=== PATIENT | female | born 1990 | race Caucasian/White ===

== ENCOUNTER 2020-12-31 14:46 | Outpatient (REF) | payer BC, SELFPAY ==
[2020-12-31 18:02] LABS: Syphilis Screen Nonreactive (Nonreactive)
[2021-01-01 01:15] LABS: CT PCR NOT DETECTED (Not Detect.); NG PCR NOT DETECTED (Not Detect.)
[2021-01-01 09:44] LABS: HBc Num1 0.05 S/CO (0.00-0.79); HIV AB/AG Nonreactive (Nonreactive); HIV Num 1 0.05 S/CO (0.00-0.99); Hepatitis B Core Antibody Nonreactive (Nonreactive); ~HepC Num1 0.08 S/CO (0.00-0.79); ~Hepatitis C Antibody Nonreactive (Nonreactive)
== END 2020-12-31 14:47 | disposition home or self-care (01) ==
LOC: HO.LAB 14:46
PROVIDERS: Visit Provider Advanced Practice Midwife
DX: Z01.419 Encounter for gynecological examination (general) (routine) without abnormal findings (principal); Z11.8 Encounter for screening for other infectious and parasitic diseases; Z11.3 Encounter for screening for infections with a predominantly sexual mode of transmission; Z11.4 Encounter for screening for human immunodeficiency virus [HIV]; Z13.29 Encounter for screening for other suspected endocrine disorder; Z11.59 Encounter for screening for other viral diseases; Z88.4 Allergy status to anesthetic agent; Z97.5 Presence of (intrauterine) contraceptive device
CPT/HCPCS: 36415; 86704; 86780; 86803; 87389; 87491; 87591

== ENCOUNTER 2022-04-20 13:35 | Outpatient (REF) | payer BC, SELFPAY ==
[2022-04-21 06:16] LABS: CT PCR NOT DETECTED (Not Detect.); NG PCR NOT DETECTED (Not Detect.)
[2022-04-24 08:34] LABS: HPV mRNA E6/E7 rflx Not Detected (Not Detected)
== END 2022-04-20 13:36 | disposition home or self-care (01) ==
LOC: HO.LNP 13:35
PROVIDERS: Visit Provider Advanced Practice Midwife
DX: Z01.419 Encounter for gynecological examination (general) (routine) without abnormal findings (principal); Z11.51 Encounter for screening for human papillomavirus (HPV); Z11.3 Encounter for screening for infections with a predominantly sexual mode of transmission
CPT/HCPCS: 0353U; 87624; 88142

== ENCOUNTER 2022-10-11 16:07 | Outpatient (AMB) | payer BC, SELFPAY ==
[2022-10-11 16:32] VITALS: BP 106/74; PULSE 95; TEMP 36.7; O2SAT 98
--- NOTE | 2022-10-11 16:32 | AM.OFFWIN_ITS ---
Intake Vital Signs 10/11/22 16:32 Height 5 ft 3 in BP 106/74 Blood Pressure Location Lt brachial Position Sitting Pulse 95 Pulse Source Pulse Oximeter Temp 98.1 F Temp Source Oral Pulse Oximetry (%) 98 Oxygen Delivery Method Room Air Intake Visit Reasons: EST/right shoulder pain Patient Tobacco Use Status: Never used Tobacco Allergies lidocaine [From LIDODERM] Allergy (Unknown, Verified 10/12/22 06:12) HIVES lidocaine gel Allergy (Unknown, Uncoded 10/12/22 06:12) hives Medication List - Last Reconciled 10/12/22 by Marcell Dean MD cyclobenzaprine 10 mg PO BEDTIME meloxicam 15 mg PO DAILY HPI EST/right shoulder pain HPI Details 32-year-old female presents to the walk-in clinic with a variety of complaints. She does not have primary care provider yet and her establishing care with a new provider is a couple of months away. Patient is reporting that her right shoulder is hurting and numbness extending a into the right arm. This symptom has been present for many months. She feels discomfort on the right side of the neck. She is also under a lot of mental stress. Patient has gone through a recent divorce and has full custody of her teenage children. Her workplace is also stressful. She has difficulty sleeping at night and wakes up early. Denies any racing thoughts. In addition patient is complaining of cold intolerance, irregular bowel habits. She is using a control patch and has not had a period for a few months. [facility] Surgical History Hx of section Social History Alcohol intake: current Alcohol intake frequency: holidays/special occasions only Patient Tobacco Use Status: Never used Tobacco Sexual orientation: Straight/Heterosexual Gender identity: Female Female Reproductive History Menstrual Age of Menarche: 9 Physical Exam Vital Signs: Last Vital Signs Temp 98.1 F 10/11/22 16:32 Pulse 95 10/11/22 16:32 BP 106/74 10/11/22 16:32 Pulse Ox 98 10/11/22 16:32 Oxygen Delivery Method Room Air 10/11/22 16:32 Const General: cooperative and healthy appearing Nutritional Appearance: well nourished Orientation/consciousness: patient oriented x3 Limitations: no limitations HEENT Head: Yes normal to inspection Eyes General: appearance normal, both eyes and all related structures Neck Neck: Yes normal visual inspection Chest Chest palpation & inspection: normal palpation of entire chest wall Resp Effort & Inspection: normal respiratory effort Neuro General: patient oriented x3 Extrem Other: Neck: Full range of motion and mild discomfort in the bilateral trapezius muscle. Right shoulder: No AC joint tenderness. Full range of motion including flexion, extension of the arm at the shoulder. Internal and external rotation are in range. Assessment & Plan Assessment & Plan (1) Right shoulder pain: Code(s): M25.511 - Pain in right shoulder Plan: I believe her symptoms are more due to underlying anxiety. However thyroid disorder should be ruled out. Cyclobenzaprine has been ordered for symptomatic relief. Will call patient with results of the blood work Orders: Orders Basic Metabolic Panel 10/11/22 E03.9 - Hypothyroidism, unspecified Liver Panel 10/11/22 E03.9 - Hypothyroidism, unspecified Thyroid Stimulating Hormone 10/11/22 E03.9 - Hypothyroidism, unspecified Complete Blood Count no Diff 10/11/22 E03.9 - Hypothyroidism, unspecified Erythrocyte Sedimentation Rate 10/11/22 E03.9 - Hypothyroidism, unspecified Medications: New meloxicam 15 mg PO DAILY 14 tabs 0RF cyclobenzaprine 10 mg PO BEDTIME 14 tabs 0RF Coding Level of Care Code New Pt Level 4 (87135) Diagnoses Right shoulder pain M25.511
== END 2022-10-11 17:02 | disposition home or self-care (01) ==
PROVIDERS: PCP Internal Medicine; Visit Provider Internal Medicine
DX: M25.511 Pain in right shoulder (principal)
CPT/HCPCS: 99204

== ENCOUNTER 2022-10-12 07:21 | Outpatient (REF) | payer BC, SELFPAY ==
[2022-10-12 11:39] LABS: Hematocrit 40.2 % (37.0-47.0); Hemoglobin 13.4 g/dl (12.0-16.0); Mean Corpuscular HGB Conc 33.3 g/dl (31.0-35.0); Mean Corpuscular Hemoglobin 30.8 pg (27.0-33.0); Mean Corpuscular Volume 92.4 fL (80.0-98.0); Mean Platelet Volume 11.2 fL (9.4-12.3); Platelet Count 175 X10*3/uL (160-400); Red Blood Count 4.35 X10*6/uL (4.20-5.50); Red Cell Distribution Width 12.2 % (11.0-16.0)
[2022-10-12 12:21] LABS: Erythrocyte Sedimentation Rate 2 MM/HR (0-20)
[2022-10-12 12:38] LABS: Alanine Aminotransferase 13 U/L (0-31); Alkaline Phosphatase 46 U/L (39-117); Anion Gap 8 (12-20); Aspartate Amino Transferase 15 U/L (5-31); Bilirubin Direct 0.2 mg/dL (0.0-0.5); Bilirubin Total 0.3 mg/dL (0.0-1.0); Blood Urea Nitrogen 14 mg/dL (9-16); Carbon Dioxide 26 mmol/L (22-29); Chloride 111 mmol/L (96-108); Estimated Glomerular Filt Rate > 60; Glucose Random 89 mg/dL (60-115); Potassium 3.8 mmol/L (3.3-5.1); Sodium 141 mmol/L (135-145); Thyroid Stimulating Hormone 1.67 uIU/mL (0.32-4.0); Total Protein 6.5 g/dL (6.5-8.0)
[2022-10-13 03:59] LABS: Syphilis Screen Nonreactive (Nonreactive)
[2022-10-13 04:42] LABS: HBc Num1 0.11 S/CO (0.00-0.79); HIV AB/AG Nonreactive (Nonreactive); HIV Num 1 0.06 S/CO (0.00-0.99); Hepatitis B Core Antibody Nonreactive (Nonreactive); ~HepC Num1 0.12 S/CO (0.00-0.79); ~Hepatitis C Antibody Nonreactive (Nonreactive)
== END 2022-10-12 07:22 | disposition home or self-care (01) ==
LOC: HO.HMGCLDS 07:21
PROVIDERS: Advanced Practice Midwife; PCP Internal Medicine; Visit Provider Internal Medicine
DX: E03.9 Hypothyroidism, unspecified (principal); Z20.2 Contact with and (suspected) exposure to infections with a predominantly sexual mode of transmission
CPT/HCPCS: 36415; 80048; 80076; 84443; 85027; 85652; 86704; 86780; 86803; 87389

== ENCOUNTER 2023-04-26 12:47 | Outpatient (AMB) | payer BC, SELFPAY ==
[2023-04-26 12:52] VITALS: BP 104/70; BMI 31.0
--- NOTE | 2023-04-26 12:52 | MHC.OFFVIS ---
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 Doing well with concerns: left sided flank pain. No frequency of urination or dysuria. She reports a history of ovarian cysts in the past. She tries to eat healthy and stays active with exercise. Lost weight this past year with lifestyle changes. Occasions bleeding with her Mirena IUD. Inserted in 2018. Currently is sexually active same partner x 2yr. She denies vaginal itching and irritation. STI screening offered; she declines. Denies family history of breast or colon cancer. Family history of ovarian cancer-sister. Last pap smear 2022, negative. PFSH Surgical History Hx of section Family History Sister Ovarian cancer Endometriosis Mother Endometriosis Social History Alcohol intake: current Alcohol intake frequency: holidays/special occasions only Patient Tobacco Use Status: Never used Tobacco Sexual orientation: Straight/Heterosexual Gender identity: Female Female Reproductive History Menstrual Age of Menarche: 9 control method: progestin IUCD (Mirena 10/2018) Total pregnancies: 3 Full term: 3 Number of Living Children: 3 Date of last pap smear: 04/20/22 (neg pap and hpv) Review of Systems Const All systems reviewed & are unremarkable except as noted in HPI and below Reports as per HPI Eyes Reports no additional complaints ENT Reports no additional complaints Card Reports no additional complaints Resp Reports no additional complaints GI Reports as per HPI and Reports no additional complaints Reports as per HPI Musc Reports no additional complaints Skin/Breast Reports as per HPI Neuro Reports no additional complaints Psych Reports no additional complaints Endo Reports no additional complaints Cristhian/Lymph Reports no additional complaints Aller/Immun Reports no additional complaints Physical Exam Vital Signs: Last Vital Signs BP 104/70 04/26/23 12:52 BMI result Body Mass Index 31.0 Const General: cooperative, healthy appearing, no acute distress, well developed and alert Orientation/consciousness: patient oriented x3 HEENT Head: Yes normal to inspection Eyes General: appearance normal, both eyes and all related structures Neck Neck: Yes normal visual inspection Thyroid: Thyroid normal Chest Chest palpation & inspection: normal inspection of the chest and other (no puckering, dimpling, peau de orange, retraction, discharge, masses) Breast/axilla inspection: normal inspection of the breasts Breast/axilla palpation: normal palpation of the breasts Resp Effort & Inspection: normal respiratory effort GI Inspection: Yes normal to inspection Palpation (GI): Soft to palpation Rectal Exam - Female: deferred General: Yes bladder normal to palpation External Female Exam: normal external appearance and normal appearance of the urethra Speculum Exam - Vagina: normal appearance of the vagina, normal palpation and normal vaginal discharge (Thin white) Speculum Exam - Cervix: normal appearance of the cervix, normal palpation and Other cervical findings present (IUD strings present) Bimanual exam- vagina & uterus: normal bimanual exam, normal palpation, uterine size normal, bladder normal to palpation, normal palpation and non-tender Bimanual Exam- Adnexa, other: no masses and Other (slightly tender to the right and left adnexa) Skin General skin exam: no rashes or lesions noted Rashes: no rashes Neuro General: patient oriented x3 Cognition (Neuro): normal cognition Extrem General: Yes normal to inspection Psych Attitude: cooperative Thought process: Normal thought process present Results AMB Urinalysis, Automated UA Leukoctes 0.5 Rob/uL Last Edit by MARSHA Stallworth on 04/26/23 13:01 UA Nitrite Negative Last Edit by MARSHA Stallworth on 04/26/23 13:01 UA Urobilinogen 0 mg/dL Last Edit by MARSHA Stallworth on 04/26/23 13:01 UA Protein 0 mg/dL Last Edit by MARSHA Stallworth on 04/26/23 13:01 UA pH 6.0 Last Edit by MARSHA Stallworth on 04/26/23 13:01 UA Blood 0 Gustavo/uL Last Edit by MandyMARSHA Castro on 04/26/23 13:01 UA Specific [place] 1.025 Last Edit by MandyMARSHA Castro on 04/26/23 13:01 UA Ketone Negative Last Edit by MandyMARSHA Castro on 04/26/23 13:01 UA Bilirubin 0 mg/dL Last Edit by MARSHA Stallworth on 04/26/23 13:01 UA Glucose 0 mg/dL Last Edit by MARSHA Stallworth on 04/26/23 13:01 Results Reviewed Results Reviewed: Laboratory Last Values Urine pH (Auto) 6.0 04/26/23 12:59 Specific [place] (Auto) 1.025 04/26/23 12:59 Urine Protein (Auto) 0 mg/dL 04/26/23 12:59 Glucose (UA)(Auto) 0 mg/dL 04/26/23 12:59 Urine Ketones (Auto) Negative 04/26/23 12:59 Urine Blood (Auto) 0 Gustavo/uL 04/26/23 12:59 Urine Nitrite (Auto) Negative 04/26/23 12:59 Urine Bilirubin (Auto) 0 mg/dL 04/26/23 12:59 Urine Urobilinogen (Auto) 0 mg/dL 04/26/23 12:59 Leukocyte Esterase (Auto) 0.5 Rob/uL 04/26/23 12:59 Assessment & Plan Assessment & Plan (1) Encounter for well woman exam with routine gynecological exam: Code(s): Z01.419 - Encounter for gynecological examination (general) (routine) without abnormal findings (2) Pelvic pain: Code(s): R10.2 - Pelvic and perineal pain (3) IUD surveillance: Code(s): Z30.431 - Encounter for routine checking of intrauterine contraceptive device Plan Discussed: Current recommendations for pap smears per ASCCP guidelines. Breast awareness and periodic breast exams. Maintain a healthy lifestyle including a well balanced diet and routine exercise. Use of [id number] Tylenol for any pelvic discomfort. Warnings if any increased her significant pain to report to the emergency room right away. Plan ultrasound for assessment for an ovarian cyst and IUD positioning. Return to the office in person for test results in pelvic recheck. Patient verbalizes understanding and agrees to the plan of care. She was given opportunity to ask questions and all questions were answered to the best of my ability. RTO in one year for annual mohs surgeon/general dermatologist examination. This note is constructed using voice recognition software. While every effort has been made to ensure accuracy, cvt rn errors may have been included. Orders: Orders AMB Urinalysis Automated Today M54.9 - Dorsalgia, unspecified Bacterial Vaginosis Panel Today R10.2 - Pelvic and perineal pain CT NG by PCR Today R10.2 - Pelvic and perineal pain Urine Culture Today R10.2 - Pelvic and perineal pain, R10.9 - Unspecified abdominal pain, R82.998 - Other abnormal findings in urine US pelvic and transvaginal Today R10.2 - Pelvic and perineal pain, Z30.431 - Encounter for routine checking of intrauterine contraceptive device Coding Level of Care Code Est Pt Prev Care 18-39y(18856) Diagnoses Encounter for well woman exam with routine gynecological exam Z01.419 Pelvic pain R10.2 IUD surveillance Z30.431
== END 2023-04-26 13:23 | disposition home or self-care (01) ==
LOC: HO.HWS 12:47
PROVIDERS: PCP Internal Medicine; Visit Provider Advanced Practice Midwife
DX: Z01.419 Encounter for gynecological examination (general) (routine) without abnormal findings (principal); R10.2 Pelvic and perineal pain; Z30.431 Encounter for routine checking of intrauterine contraceptive device; M54.9 Dorsalgia, unspecified
CPT/HCPCS: 99395

== ENCOUNTER 2023-04-26 12:47 | Outpatient (REF) | payer BC, SELFPAY | END 2023-04-26 12:48 | disposition home or self-care (01) | LOC: HO.LAB 12:47 | PROVIDERS: PCP Internal Medicine; Visit Provider Advanced Practice Midwife | DX: R10.2 Pelvic and perineal pain (principal) | CPT/HCPCS: 81003 ==

== ENCOUNTER 2023-04-26 13:17 | Outpatient (REF) | payer BC, SELFPAY ==
[2023-04-27 03:05] LABS: CT PCR NOT DETECTED (Not Detect.); NG PCR NOT DETECTED (Not Detect.)
[2023-04-27 09:18] LABS: BV Int Neg Control Negative (Negative); BV Int Pos Control Positive (Positive)
== END 2023-04-26 13:18 | disposition home or self-care (01) ==
LOC: HO.LNP 13:17
PROVIDERS: Visit Provider Advanced Practice Midwife
DX: R82.998 Other abnormal findings in urine (principal); R10.2 Pelvic and perineal pain; R10.9 Unspecified abdominal pain
CPT/HCPCS: 0353U; 87086; 87480; 87510; 87660

== ENCOUNTER 2023-05-10 14:27 | Outpatient (REF) | payer BC, SELFPAY ==
--- NOTE | ~2023-05-10 | US_ITS ---
EXAMINATION: US PELVIS CLINICAL INFORMATION: Pelvic pain; the last menstrual period is not provided. COMPARISON: None available. TECHNIQUE: Ultrasound of the pelvis is performed using both transabdominal and transvaginal transducers along with Doppler. Transvaginal imaging is performed due to inadequate visualization transabdominally. FINDINGS: Uterus: The uterus is anteverted and measures 9.7 x 5.0 x 5.7 cm. The double wall endometrial thickness is 8 mm. An intrauterine device is seen, properly situated within the endometrial canal. The uterus is smooth in contour and has normal myometrial echogenicity. No visible fibroid. Nabothian cysts are seen within the cervix. Adnexa: Both ovaries are visualized. There is normal color flow to the adnexa. There is no ovarian torsion. There is no pelvic ascites or fluid collection. Right ovary measures 2.9 x 1.7 x 2.9 cm, volume 7.5 mL. Left ovary measures 2.6 x 1.9 x 1.6 cm, volume 4.1 mL. US/US pelvic and transvaginal IMPRESSION: 1. An intrauterine device is seen, properly situated within the endometrial canal. 2. Nabothian cysts are seen within the cervix.
== END 2023-05-10 14:28 | disposition home or self-care (01) ==
LOC: HO.US 14:27
PROVIDERS: PCP Internal Medicine; Visit Provider Advanced Practice Midwife
DX: Z30.431 Encounter for routine checking of intrauterine contraceptive device (principal); R10.2 Pelvic and perineal pain
CPT/HCPCS: 76830; 76856

== ENCOUNTER 2023-05-18 15:20 | Outpatient (AMB) | payer BC, SELFPAY ==
[2023-05-18 15:24] VITALS: BP 110/68; PULSE 96; O2SAT 96; BMI 29.1
--- NOTE | 2023-05-18 15:24 | A.OFFPC_ITS ---
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 C law writer last pap 04/26/23 Is last menstrual period known: No Allergies lidocaine [From LIDODERM] Allergy (Unknown, Verified 05/18/23 15:44) HIVES lidocaine gel Allergy (Unknown, Uncoded 05/18/23 15:44) hives Medication List - Last Reconciled 05/18/23 by ARPITA Lindsey levonorgestrel (Mirena) intrauterine Tobacco use date assessed: 05/18/23 Dental Screening Dental Screen Date: 05/18/23 Did you have a dental visit in the last 12 months?: Yes Did you have a dental problem in the last 6 months where you did not have access to dental care?: No Was dental information given to patient?: Patient has dentist HPI HPI Comments History of Present Illness Details The patient is a 32-year-old female who I am meeting for the 1st time. Patient has establish care with OBGYN. Last Pap smear was 04/29. She was seen in our walk-in clinic 1 month prior with complaints of right trapezius pain and tingling down her right arm. She was given cyclobenzaprine and meloxicam. She has a past medical significant for migraines. She is not currently taking any prophylactic medication for this, states she gets 1-2 episodes per week. Patient also states that she is having a lot of anxiety due to stressors in life and work. This is interrupting her ability to get a good night's sleep, and she believes is causing an increase in migraine occurrences. PFSH Surgical History Hx of section Family History Sister Ovarian cancer Endometriosis Substance use disorder Mother Endometriosis Mental health disorder Substance use disorder Maternal Grandmother Substance use disorder Brother Substance use disorder Social History Housing: House Alcohol intake: current Alcohol intake frequency: holidays/special occasions only Patient Tobacco Use Status: Never used Tobacco e-Cigarette/Vaping Use: Never Used service: No Current occupational status: employed Current occupation: [employer] Current occupational exposures/hazards: No Sexual orientation: Straight/Heterosexual Gender identity: Female Female Reproductive History Menstrual Age of Menarche: 9 Questionnaire PHQ-9 Over the last 2 weeks, how often have you been bothered by any of the following problems? 1. Little interest or pleasure in doing things: more than half the days 2. Feeling down, depressed, or hopeless: more than half the days 3. Trouble falling or staying asleep, or sleeping too much: more than half the days 4. Feeling tired or having little energy: several days 5. Poor appetite or overeating: several days 6. Feeling bad about yourself - or that you are a failure or have let yourself or your family down: several days 7. Trouble concentrating on things, such as reading the newspaper or watching television: more than half the days 8. Moving or speaking so slowly that other people could have noticed. Or the opposite - being so fidgety or restless that you have been moving around a lot more than usual: not at all 9. Thoughts that you would be better off or of hurting yourself in some way: not at all Total score: 11 Depression Screening Interpretation: Negative (Patient being started on Lexapro today.) Depression Screening Done: Yes 99027 - PHQ-9 Billing: Yes Source: Developed by Drs. Daniel Elizabeth, Debbie Pettit, Nitish Dee and colleagues, with an educational stephanie from [employer] Thrive Questionnaire Date Thrive assessed: 05/18/23 I am a: Patient What is your living situation today?: I have a steady place to live Within the past 12 months, did the food you bought not last and you didn't have the money to get more?: Never true Within the past 12 months, did you worry whether your food would run out before you got money to buy more?: Never true Do you have trouble paying for medicines?: No Do you have trouble getting transportation to medical appointments?: No Do you have trouble paying your heating and electricity bill?: Yes Do you have trouble taking care of your child, family member or friend?: No Do you have trouble with day-to-day activities such as bathing, preparing meals, shopping, managing finances, etc.?: No Are you currently unemployed and looking for a job?: No Are you interested in more education?: No THRIVE Score: 1 AUDIT C Alcohol Use Questionnaire (AUDIT-C) 1. How often do you have a drink containing alcohol?: 2-4 times a month 2. How many drinks containing alcohol do you have on a typical day when you are drinking?: 1 or 2 3. How often do you have six or more drinks on one occasion?: Never Total Score: 2 GETEA-7 AMB Questionnaire GEETA-7 Date GEETA - 7 assessed: 05/18/23 Feeling nervous, anxious, or on edge: 2 = More than half the days Not being able to stop or control worryin = More than half the days Worrying too much about different things: 2 = More than half the days Trouble relaxin = More than half the days Being so restless that it is hard to sit still: 2 = More than half the days Becoming easily annoyed or irritable: 1 = Several days Feeling afraid as if something awful might happen: 1 = Several days Total GEETA-7 score (0-4 normal; 5-9 mild; 10-14 moderate; 15-21 severe): 12 Source: Developed by Drs. Daniel Elizabeth, Debbie Pettit, Nitish Dee and colleagues, with an educational stephanie from [employer] GEETA-7 Assessment Billing GEETA-7 Assessment Tool: GEETA-7 Assessment 60505 Review of Systems Const Details: Constitutional : No Weight loss, No Fever, No Chills, No Fatigue, No Malaise ENT/Mouth : No sore throat, No Rhinorrhea Eyes: No Eye Pain, No Swelling, No Redness Cardiovascular : No Chest Pain, No SOB, No Dyspnea on Exertion, No Orthopnea, No Edema, No Palpitations Respiratory : No Cough, No Sputum, No Wheezing Gastrointestinal : No Nausea, No Vomiting, No Diarrhea, No Constipation, No abdominal Pain, No Hematochezia, No Melena Genitourinary : No Dysuria, No Urinary Frequency, No Hematuria, Musculoskeletal : Admits pain right shoulder muscle. Skin : No Skin Lesions, No rash Neuro : No Weakness, No Numbness, No Dizziness, Admits intermittent Headache Psych : Admits Anxiety/Panic, No depression, Denies SI/HI. Heme/Lymph: No Bruising, No Bleeding,No Lymphadenopathy Endocrine : No Polyuria, No Polydipsia All other systems reviewed and are negative Physical exam (Primary Care) Vital Signs: Last Vital Signs Pulse 96 05/18/23 15:24 BP 110/68 05/18/23 15:24 Pulse Ox 96 05/18/23 15:24 Oxygen Delivery Method Room Air 05/18/23 15:24 Care Plan Goal for BP management: Vital signs reviewed stable. BMI result Body Mass Index 29.1 Tobacco/Smoking Status: Tobacco use Status Tobacco use date assessed 05/18/23 05/18/23 15:33 Patient Tobacco Use Status Never used Tobacco 05/18/23 15:24 e-Cigarette/Vaping Use Never Used 05/18/23 15:33 PHQ-9: PHQ-9 Score PHQ-9: Total score 13 05/18/23 15:35 Depression Screening Interpretation: Negative (Patient being started on Lexapro today.) Thrive Assessment: Date of Thrive Assessment Date Thrive assessed 05/18/23 05/18/23 15:35 Const Other: Appearance: Alert.? Oriented X3.? No acute distress.? Head: Normocephalic, atraumatic. Eyes: Pupils equal, round and reactive to light.? Neck: Normal inspection.? Neck supple.? CVS: Normal heart rate and rhythm.? Pulses normal.? Respiratory: No respiratory distress.? Breath sounds normal.? Extremities: No lower extremity edema.? No calf ttp. 5/5 strength to bilateral upper and lower extremities, + right trapezius. Neuro: Oriented X 3.? No motor deficit.? No sensory deficit. CN 2-12 intact Assessment and Plan Assessment & Plan (1) Right shoulder pain: Comment: Patient will be given naproxen to be taken as directed. Patient has been educa alejo the side effects of these medications. Code(s): M25.511 - Pain in right shoulder Qualifiers: Chronicity: unspecified Qualified Code(s): M25.511 - Pain in right shoulder (2) Migraines: Comment: Patient has history of migraines. She states that with anxiety she believes she is getting more current his during the week. She is also getting little sleep which may be an exacerbating factor. Patient can take naproxen for abortive therapy. Patient will be given medication to assist with insomnia and anxiety. If symptoms do not improve, will give neurology referral Code(s): G43.909 - Migraine, unspecified, not intractable, without status migrainosus Qualifiers: Migraine type: unspecified Status migrainosus presence: without status migrainosus Intractability: not intractable Qualified Code(s): G43.909 - Migraine, unspecified, not intractable, without status migrainosus (3) Anxiety: Comment: Patient will be started on 5 mg of escitalopram, will be given hydroxyzine to be taken at night p.r.n. for sleep. Patient has been educated on side effects of these medications. Patient will be seeing a therapist in 1 month. Code(s): F41.9 - Anxiety disorder, unspecified Plan: Take your medications as prescribed. If you were prescribed antibiotics today, it is important that you take your medication to their entirety, do not skip any doses, do not finish them early. Follow-up with your primary care provider this week. Return to the emergency department with new or worsening symptoms. Such as fevers, chills, chest pain, shortness of breath, nausea, vomiting, dizziness, headache, vision changes, lethargy In case of emergency call 911 Plan Will follow-up in 6 weeks for medication review. Medications: New sennosides (senna) 8.6 mg PO DAILY 30 tabs 0RF naproxen Do not combine with NSAIDS. 500 mg PO BID PRN 30 tabs 0RF pain escitalopram oxalate (Lexapro) 5 mg PO DAILY 90 tabs 0RF hydroxyzine HCl 25 mg PO BEDTIME 30 tabs 0RF Coding Level of Care Code Est Pt Level 4 (13113) Diagnoses Right shoulder pain, unspecified chronicity M25.511 Chronicity: unspecified Migraine without status migrainosus, not intractable, unspecified migraine type G43.909 Migraine type: unspecified Status migrainosus presence: without status migrainosus Intractability: not intractable Anxiety F41.9 Additional Codes GEETA-7 Assessment Billing - GEETA-7 Assessment Tool: GEETA-7 Assessment 58925 ([id number]) Time Spent (min) 41
== END 2023-05-18 16:12 | disposition home or self-care (01) ==
PROVIDERS: PCP Internal Medicine; Visit Provider Nurse Practitioner Primary Care
DX: M25.511 Pain in right shoulder (principal); G43.909 Migraine, unspecified, not intractable, without status migrainosus; F41.9 Anxiety disorder, unspecified
CPT/HCPCS: 96127; 99214

== ENCOUNTER 2023-06-14 08:28 | Outpatient (REF) | payer BC, SELFPAY ==
[2023-06-14 10:27] LABS: Appearance Urine Clear; Color Urine Yellow; Glucose Urine UA Negative (Negative); Leukocyte Esterase Urine Negative (Negative); Nitrite Urine Negative (Negative); Specific Gravity - Urine 1.025 (1.005-1.025); Urine Blood Negative (Negative); Urine Ketones Negative (Negative); Urine Protein Negative (Neg-Trace)
[2023-06-14 10:29] LABS: MANUAL DIFF FLAG NO
[2023-06-14 10:37] LABS: Basophils Percent Auto 0.4 % (0-2); Eosinophils Absolute Auto 0.1 X10*3/uL (0.0-0.4); Eosinophils Percent Auto 2.5 % (0-4); Hematocrit 39.9 % (37.0-47.0); Hemoglobin 13.6 g/dl (12.0-16.0); Imm Gran Abs Auto 0.03 X10*3/uL (0.00-0.03); Imm Gran Pct Auto 0.5 % (0.0-0.4); Lymphocytes Absolute Auto 1.8 X10*3/uL (1.2-4.9); Lymphocytes Percent Auto 31.5 % (20-40); Mean Corpuscular HGB Conc 34.1 g/dl (31.0-35.0); Mean Corpuscular Hemoglobin 31.6 pg (27.0-33.0); Mean Corpuscular Volume 92.6 fL (80.0-98.0); Mean Platelet Volume 11.3 fL (9.4-12.3); Monocytes Absolute Auto 0.4 X10*3/uL (0.1-1.2); Monocytes Percent Auto 7.4 % (2-11); Neutrophils Absolute Auto 3.3 x10*3/uL (2.0-8.3); Neutrophils Percent Auto 57.7 % (45-73); Platelet Count 201 X10*3/uL (160-400); Red Blood Count 4.31 X10*6/uL (4.20-5.50); Red Cell Distribution Width 12.5 % (11.0-16.0); White Blood Count 5.7 X10*3/uL (4.8-10.8)
[2023-06-14 11:31] LABS: Alanine Aminotransferase 24 U/L (0-31); Albumin Level 4.3 g/dL (3.5-5.0); Alkaline Phosphatase 48 U/L (39-117); Anion Gap 11 (12-20); Aspartate Amino Transferase 21 U/L (5-31); Bilirubin Total 0.5 mg/dL (0.0-1.0); Blood Urea Nitrogen 20 mg/dL (9-16); Calcium 9.3 mg/dL (8.4-10.2); Carbon Dioxide 27 mmol/L (22-29); Chloride 110 mmol/L (96-108); Cholesterol 149 mg/dL (<200); Estimated Glomerular Filt Rate > 60; Glucose Random 94 mg/dL (60-115); HDL Cholesterol 53 mg/dL (>40); LDL Cholesterol Calculated 79 mg/dL (<100); Potassium 3.8 mmol/L (3.3-5.1); Sodium 144 mmol/L (135-145); Triglycerides 87 mg/dL (<150)
[2023-06-14 11:32] LABS: TSH reflex Free T4 1.19 uIU/mL (0.32-4.0)
[2023-06-14 12:00] LABS: Vitamin B12 245 pg/mL (200-900)
[2023-06-18 13:53] LABS: Vitamin D 25-OH, D2 <4 ng/mL; Vitamin D 25-OH, D3 28 ng/mL; Vitamin D 25-OH, Total 28 ng/mL (30-100)
[2023-06-18 17:08] LABS: Vitamin B6 28.6 ng/mL (2.1-21.7)
== END 2023-06-14 08:29 | disposition home or self-care (01) ==
LOC: HO.HMGCLDS 08:28
PROVIDERS: PCP Nurse Practitioner Primary Care; Visit Provider Nurse Practitioner Primary Care
DX: Z13.0 Encounter for screening for diseases of the blood and blood-forming organs and certain disorders involving the immune mechanism (principal); Z13.21 Encounter for screening for nutritional disorder; Z13.89 Encounter for screening for other disorder; Z13.29 Encounter for screening for other suspected endocrine disorder; Z13.6 Encounter for screening for cardiovascular disorders; Z13.220 Encounter for screening for lipoid disorders; Z91.89 Other specified personal risk factors, not elsewhere classified
CPT/HCPCS: 36415; 80053; 80061; 81003; 82306; 82607; 84207; 84443; 85025

== ENCOUNTER 2023-06-29 14:09 | Outpatient (AMB) | payer BC, SELFPAY ==
--- NOTE | 2023-06-29 14:11 | MHC.PC.OV ---
Vital Signs 06/29/23 14:13 Height 5 ft 3 in Weight 169 lb BMI 29.9 BP 108/66 Blood Pressure Location Rt brachial Position Sitting Pulse 86 Pulse Source Pulse Oximeter Pulse Oximetry (%) 98 Intake Visit Reasons: 6 week follow up Intake Note: pt is here for 6 week follow up Slip Tender Required: No Accompanied by: Self / Same As Patient Allergies lidocaine [From LIDODERM] Allergy (Unknown, Verified 06/29/23 14:36) HIVES lidocaine gel Allergy (Unknown, Uncoded 06/29/23 14:36) hives Medication List - Last Reconciled 06/29/23 by ARPITA Lindsey cholecalciferol (vitamin D3) 50 mcg PO DAILY escitalopram oxalate (Lexapro) 10 mg PO DAILY levonorgestrel (Mirena) intrauterine naproxen 500 mg PO BID PRN sennosides (senna) 8.6 mg PO DAILY Tobacco use date assessed: 05/18/23 Dental Screening Dental Screen Date: 05/18/23 HPI HPI Comments History of Present Illness Details Patient is a 32-year-old female in today for follow-up. Patient was started on escitalopram 5 mg PO daily due to general anxiety disorder. The patient states that she recently establish contact with a psychiatrist to increased her dosage to 10 mg p.o. daily. Patient denies SI/HI. Patient states she is still getting about 2 migraines per week. Patient is not currently taking any medication for migraine prophylactic. Will give patient amitriptyline 10 mg p.o. at night to assist with migraine prophylactics and insomnia due to anxiety. Patient has been educated on adverse side effects these medication. Patient also has right shoulder pain. 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 Will obtain x-ray. She states sometimes the pain radiates down to her elbow and fingers. Denies any trauma to the area. PFSH Surgical History Hx of section Family History Sister Ovarian cancer Endometriosis Substance use disorder Mother Endometriosis Mental health disorder Substance use disorder Maternal Grandmother Substance use disorder Brother Substance use disorder Social History Housing: House Alcohol intake: current Alcohol intake frequency: holidays/special occasions only Patient Tobacco Use Status: Never used Tobacco e-Cigarette/Vaping Use: Never Used service: No Current occupational status: employed Current occupation: [employer] Current occupational exposures/hazards: No Sexual orientation: Straight/Heterosexual Gender identity: Female Cognitive needs: No Hearing needs: No Vision needs: No Female Reproductive History Menstrual Age of Menarche: 9 Questionnaire PHQ-9 Over the last 2 weeks, how often have you been bothered by any of the following problems? 1. Little interest or pleasure in doing things: several days 2. Feeling down, depressed, or hopeless: more than half the days 3. Trouble falling or staying asleep, or sleeping too much: several days 4. Feeling tired or having little energy: more than half the days 5. Poor appetite or overeating: several days 6. Feeling bad about yourself - or that you are a failure or have let yourself or your family down: not at all 7. Trouble concentrating on things, such as reading the newspaper or watching television: several days 8. Moving or speaking so slowly that other people could have noticed. Or the opposite - being so fidgety or restless that you have been moving around a lot more than usual: not at all 9. Thoughts that you would be better off or of hurting yourself in some way: not at all Total score: 8 Depression Screening Interpretation: Negative Depression Screening Done: Yes 12494 - PHQ-9 Billing: Yes Source: Developed by Drs. Daniel Elizabeth, Debbie Pettit, Nitish Dee and colleagues, with an educational stephanie from [employer]. Thrive Questionnaire Date Thrive assessed: 05/18/23 GEETA-7 AMB Questionnaire GEETA-7 Date GEETA - 7 assessed: 05/18/23 Feeling nervous, anxious, or on edge: 1 = Several days Not being able to stop or control worryin = Several days Worrying too much about different things: 1 = Several days Trouble relaxin = More than half the days Being so restless that it is hard to sit still: 1 = Several days Becoming easily annoyed or irritable: 1 = Several days Feeling afraid as if something awful might happen: 0 = Not at all Total GEETA-7 score (0-4 normal; 5-9 mild; 10-14 moderate; 15-21 severe): 7 Source: Developed by Drs. Daniel Elizabeth, Debbie Pettit, Nitish Dee and colleagues, with an educational stephanie from [employer]. GEETA-7 Assessment Billing GEETA-7 Assessment Tool: GEETA-7 Assessment 38022 Review of Systems Const All systems reviewed & are unremarkable except as noted in HPI and below Card Denies chest pain and Denies dyspnea Resp Denies dyspnea Psych Denies panic attacks, Denies homicidal ideation and Denies suicidal ideation Physical exam (Primary Care) Vital Signs: Last Vital Signs Pulse 86 06/29/23 14:13 BP 108/66 06/29/23 14:13 Pulse Ox 98 06/29/23 14:13 BMI result Body Mass Index 29.9 Tobacco/Smoking Status: Tobacco use Status Tobacco use date assessed 05/18/23 06/29/23 14:13 Patient Tobacco Use Status Never used Tobacco 06/29/23 14:13 e-Cigarette/Vaping Use Never Used 06/29/23 14:13 PHQ-9: PHQ-9 Score PHQ-9: Total score 8 06/29/23 15:11 Depression Screening Interpretation: Negative Thrive Assessment: Date of Thrive Assessment Date Thrive assessed 05/18/23 06/29/23 14:13 Const Other: Appearance: Alert.? Oriented X3.? No acute distress.? Head: Normocephalic Eyes: Pupils equal, round and reactive to light.? CVS: Normal heart rate and rhythm.? Pulses normal.? Respiratory: No respiratory distress.? Breath sounds normal.? Skin: Skin warm and dry.? Normal skin color.? Normal skin turgor.? Extremities: Tednernes to palpation of right trapezius. Full ROM. Neuro: Oriented X 3.? No motor deficit.? No sensory deficit. CN 2-12 intact Assessment and Plan Assessment & Plan (1) Right shoulder pain: Comment: Patient will be given naproxen to be taken as directed. Will obtain X-ray. Code(s): M25.511 - Pain in right shoulder Qualifiers: Chronicity: unspecified Qualified Code(s): M25.511 - Pain in right shoulder (2) Migraines: Comment: Patient has history of migraines. Will start an amitriptyline 10 mg p.o. at night. Patient has been educated on side effects of these medications. Code(s): G43.909 - Migraine, unspecified, not intractable, without status migrainosus Qualifiers: Intractability: not intractable Migraine type: unspecified Status migrainosus presence: without status migrainosus Qualified Code(s): G43.909 - Migraine, unspecified, not intractable, without status migrainosus Plan: Take your medications as prescribed. If you were prescribed antibiotics today, it is important that you take your medication to their entirety, do not skip any doses, do not finish them early. Follow-up with your primary care provider this week. Return to the emergency department with new or worsening symptoms. Such as fevers, chills, chest pain, shortness of breath, nausea, vomiting, dizziness, headache, vision changes, lethargy In case of emergency call 911 (3) Anxiety: Comment: Patient is now currently taking 10 mg p.o. Lexapro daily. Patient has established psychiatrist. Patient also has upcoming appointment with therapist Code(s): F41.9 - Anxiety disorder, unspecified Plan Patient will follow-up in 2 months Orders: Orders Comprehensive Met. Panel 2 Months Z91.89 - Other specified personal risk factors, not elsewhere classified Vitamin D 25-OH (D2 and D3) 2 Months Z13.21 - Encounter for screening for nutritional disorder XR shoulder RT min 2V 06/28/24 M25.511 - Pain in right shoulder Complete Blood Count Auto Diff 2 Months Z13.0 - Encounter for screening for diseases of the blood and blood-forming organs and certain disorders involving the immune mechanism Medications: New amitriptyline 10 mg PO BEDTIME 30 tabs 0RF Changed From escitalopram oxalate (Lexapro) 5 mg PO DAILY 90 tabs 0RF To escitalopram oxalate (Lexapro) 10 mg PO DAILY Discontinued hydroxyzine HCl Discontinued Reason: Doctor's Order 25 mg PO BEDTIME 30 tabs 0RF Coding Level of Care Code Est Pt Level 4 (61469) Diagnoses Right shoulder pain, unspecified chronicity M25.511 Chronicity: unspecified Migraine without status migrainosus, not intractable, unspecified migraine type G43.909 Intractability: not intractable Migraine type: unspecified Status migrainosus presence: without status migrainosus Anxiety F41.9 Additional Codes GEETA-7 Assessment Billing - GEETA-7 Assessment Tool: GEETA-7 Assessment 92500 ([id number]) Time Spent (min) 28
[2023-06-29 14:13] VITALS: BP 108/66; PULSE 86; O2SAT 98; BMI 29.9
== END 2023-06-29 15:16 | disposition home or self-care (01) ==
PROVIDERS: PCP Internal Medicine; Visit Provider Nurse Practitioner Primary Care
DX: M25.511 Pain in right shoulder (principal); G43.909 Migraine, unspecified, not intractable, without status migrainosus; F41.9 Anxiety disorder, unspecified
CPT/HCPCS: 99214

== ENCOUNTER 2023-06-29 14:48 | Outpatient (REF) | payer BC, SELFPAY | END 2023-06-29 14:49 | disposition home or self-care (01) | LOC: HO.HMGCX 14:48 | PROVIDERS: PCP Nurse Practitioner Primary Care; Visit Provider Nurse Practitioner Primary Care | DX: M25.511 Pain in right shoulder (principal) | CPT/HCPCS: 73030 ==

== ENCOUNTER 2023-07-11 09:09 | Outpatient (AMB) | payer BC, SELFPAY ==
--- NOTE | 2023-07-11 09:10 | A.OFFPC_ITS ---
Vital Signs 07/11/23 09:10 Height 5 ft 3 in Intake Visit Reasons: xray results Intake Note: pt is here for go over xray results Community Affairs Manager Required: No Accompanied by: Sister Allergies lidocaine [From LIDODERM] Allergy (Unknown, Verified 07/11/23 09:17) HIVES lidocaine gel Allergy (Unknown, Uncoded 07/11/23 09:17) hives Tobacco use date assessed: 05/18/23 Dental Screening Dental Screen Date: 05/18/23 HPI HPI Comments History of Present Illness Details Patient has been experiencing upper back and right shoulder pain over the past several months. Patient has been utilizing NSAIDs with mild relief. Patient's recent on x-ray demonstrated dextroscoliosis. Will refer to physical therapy. PFSH Surgical History Hx of section Family History Sister Ovarian cancer Endometriosis Substance use disorder Mother Endometriosis Mental health disorder Substance use disorder Maternal Grandmother Substance use disorder Brother Substance use disorder Social History Housing: House Alcohol intake: current Alcohol intake frequency: holidays/special occasions only Patient Tobacco Use Status: Never used Tobacco e-Cigarette/Vaping Use: Never Used service: No Current occupational status: employed Current occupation: [employer] Current occupational exposures/hazards: No Sexual orientation: Straight/Heterosexual Gender identity: Female Cognitive needs: No Hearing needs: No Vision needs: No Female Reproductive History Menstrual Age of Menarche: 9 Questionnaire Thrive Questionnaire Date Thrive assessed: 05/18/23 GEETA-7 AMB Questionnaire GEETA-7 Date GEETA - 7 assessed: 05/18/23 Source: Developed by Drs. Daniel Elizabeth, Debbie Pettit, Nitish Dee and colleagues, with an educational stephanie from [employer]. Review of Systems Const All systems reviewed & are unremarkable except as noted in HPI and below ENT Denies neck pain Musc Reports back pain (upper back), Denies neck pain, Denies numbness and Denies tingling Neuro Denies numbness and Denies tingling Physical exam (Primary Care) Tobacco/Smoking Status: Tobacco use Status Tobacco use date assessed 05/18/23 07/11/23 09:11 Patient Tobacco Use Status Never used Tobacco 07/11/23 09:11 e-Cigarette/Vaping Use Never Used 07/11/23 09:11 Thrive Assessment: Date of Thrive Assessment Date Thrive assessed 05/18/23 07/11/23 09:11 Telehealth Telehealth Telehealth Platform: Telephone Location of patient: address on file Patient Identification confirmed using: Name, : Yes Telehealth method: voice only Patient verbally consented to treatment: Yes Patient verbally consented to billing insurance company: Yes Patient informed of any privacy concerns related to visit: Yes Assessment and Plan Assessment & Plan (1) Dextroscoliosis: Comment: Will refer patient to physical therapy. Code(s): M41.80 - Other forms of scoliosis, site unspecified Plan: Patient has been educated on signs of worsening symptoms. When to return to the office or when to present to the ED. Orders: Orders PT Evaluation and Treatment Today M25.511 - Pain in right shoulder, M41.80 - Other forms of scoliosis, site unspecified, M54.9 - Dorsalgia, unspecified Coding Level of Care Code Tele Est Pt Level 3 (03026) Diagnoses Dextroscoliosis M41.80 Time Spent (min) 15
== END 2023-07-11 10:29 | disposition home or self-care (01) ==
LOC: HO.HMGC 09:09
PROVIDERS: PCP Nurse Practitioner Primary Care; Visit Provider Nurse Practitioner Primary Care
DX: M41.80 Other forms of scoliosis, site unspecified (principal)
CPT/HCPCS: 99442

== ENCOUNTER 2023-07-27 09:37 | Outpatient (AMB) | payer BC, SELFPAY ==
--- NOTE | 2023-07-27 09:44 | MHC.PC.OV ---
Vital Signs 07/27/23 09:45 Height 5 ft 3 in Weight 175 lb BMI 31.0 BP 104/68 Blood Pressure Location Rt brachial Position Sitting Pulse 83 Pulse Source Pulse Oximeter Pulse Oximetry (%) 96 Oxygen Delivery Method Room Air Intake Visit Reasons: s/p fall Intake Note: Pt is here today s/p fall from 07/15/23 from a concert she attended: Didn't get medical attention at the day of the fall: Pt c/o Lt knee pain and H/A Allergies lidocaine [From LIDODERM] Allergy (Unknown, Verified 07/27/23 10:21) HIVES lidocaine gel Allergy (Unknown, Uncoded 07/27/23 10:21) hives Medication List - Last Reconciled 07/27/23 by ARPITA Lindsey cholecalciferol (vitamin D3) 50 mcg PO DAILY escitalopram oxalate (Lexapro) 10 mg PO DAILY levonorgestrel (Mirena) intrauterine naproxen 500 mg PO BID PRN sennosides (senna) 8.6 mg PO DAILY Tobacco use date assessed: 07/27/23 Dental Screening Dental Screen Date: 07/27/23 Did you have a dental visit in the last 12 months?: Yes Did you have a dental problem in the last 6 months where you did not have access to dental care?: No Was dental information given to patient?: Patient has dentist HPI HPI Comments History of Present Illness Details Patient is a 33-year-old female in today for a sick visit. She reports tripping over her shoes and following at a concert and hitting her left knee and chin. This fall was 10 days prior to appointment. She denies LOC. she reports tenderness to her left knee, although she is able to ambulate on the affected joint. States that it feels more tight and painful. Denies any numbness or tingling. She reports the swelling has subsided. She also reports tenderness to her chin and right maxilla. She states the facial pain has gotten progressively better over the past 10 days, however she still has minor swelling in her chin. Patient denies vision changes. Denies any dizziness. She reports she did have a headache the day immediately following the fall, utilized naproxen with good effect. Patient has also been intermittently icing the area as well with mild relief. Patient has successfully weaned herself off the amitriptyline. She is currently taking escitalopram 10 mg p.o. daily. She has establish care with a psychiatrist. Will obtain EKG in office today due to QTC prolongation risk. Patient has follow-up appointment in 1 month will consider starting on Topamax at that time. PFSH Surgical History Hx of section Family History Sister Ovarian cancer Endometriosis Substance use disorder Mother Endometriosis Mental health disorder Substance use disorder Maternal Grandmother Substance use disorder Brother Substance use disorder Social History Housing: House Alcohol intake: current Alcohol intake frequency: holidays/special occasions only Patient Tobacco Use Status: Never used Tobacco e-Cigarette/Vaping Use: Never Used service: No Current occupational status: employed Current occupation: [employer] Current occupational exposures/hazards: No Sexual orientation: Straight/Heterosexual Gender identity: Female Cognitive needs: No Hearing needs: No Vision needs: No Female Reproductive History Menstrual Age of Menarche: 9 Questionnaire PHQ-9 Over the last 2 weeks, how often have you been bothered by any of the following problems? 81291 - PHQ-9 Billing: Patient declined-do not bill Source: Developed by Drs. Daniel Elizabeth, Nitish Richter and colleagues, with an educational stephanie from [employer]. Thrive Questionnaire Date Thrive assessed: 05/18/23 GEETA-7 AMB Questionnaire GEETA-7 Date GEETA - 7 assessed: 05/18/23 Source: Developed by Drs. Daniel Elizabeth, Nitish Richter and colleagues, with an educational stephanie from [employer]. GEETA-7 Assessment Billing GEETA-7 Assessment Tool: pt declined-do not bill Review of Systems Const All systems reviewed & are unremarkable except as noted in HPI and below Denies chills and Denies fever(s) Eyes Denies blurry vision, Denies diplopia and Denies loss of vision ENT Denies vertigo, Denies dizziness and Denies disequilibrium Card Denies chest pain, Denies syncope and Denies dyspnea Resp Denies dyspnea GI Denies diarrhea, Denies nausea and Denies vomiting Musc Denies numbness, Reports stiffness (left knee), Denies tingling and Reports other (chin and right cheekbone tenderness. ) Skin/Breast Reports skin swelling (chin) and Denies unusual bruising Neuro Denies confusion, Denies vertigo, Denies dizziness, Denies syncope, Denies loss of vision, Denies numbness, Denies Sensory deficit (Neuro), Denies tingling, Denies paresthesias and Denies disequilibrium Psych Denies confusion Physical exam (Primary Care) Vital Signs: Last Vital Signs Pulse 83 07/27/23 09:45 BP 104/68 07/27/23 09:45 Pulse Ox 96 07/27/23 09:45 Oxygen Delivery Method Room Air 07/27/23 09:45 Care Plan Goal for BP management: Vital signs reviewed and stable BMI result Body Mass Index 31.0 Tobacco/Smoking Status: Tobacco use Status Tobacco use date assessed 07/27/23 07/27/23 09:51 Patient Tobacco Use Status Never used Tobacco 07/27/23 09:51 e-Cigarette/Vaping Use Never Used 07/27/23 09:51 Thrive Assessment: Date of Thrive Assessment Date Thrive assessed 05/18/23 07/27/23 09:51 Const Other: Appearance: Alert.? Oriented X3.? No acute distress.? Head: Normocephalic, atraumatic. Face: +tenderness to right maxilla, no edema. Eyes: Pupils equal, round and reactive to light.?EOMI. Sclera white. Neck: Normal inspection.? Neck supple.?Full ROM. CVS: Normal heart rate and rhythm.? Pulses normal.? Respiratory: No respiratory distress.? Breath sounds normal.? Skin: Skin warm and dry.? Normal skin color.? Normal skin turgor.?Scant edema to chin. Extremities: No lower extremity edema.?+tenderness to left knee, media aspect. Neuro: Oriented X 3.? No motor deficit.? No sensory deficit. CN 2-12 intact General: No confusion Orientation/consciousness: patient oriented x3 and No confusion [facility] Head: No contusion, No laceration, No palpable skull fracture, No raccoon eyes, No scalp lesion, No Temporal artery tenderness present and No periorbital ecchymosis Face images: 1. Scant edema 2. Tenderness to palpation Eyes Pupils: Equal, round and reactive pupils present Neuro General: patient oriented x3, CN's II-XI intact bilaterally and No confusion Cranial nerves: Yes CN's II-XII intact bilaterally, Yes Equal, round and reactive pupils present and Yes Bilaterally intact EOM present Cognition (Neuro): normal cognition Gait exam (Neuro): Normal gait present Motor exam (neuro): 5/5 motor strength present throughout and Pronator motor function not present Sensory Exam: No Sensory deficit (Neuro) Coordination: [id number] test normal and [id number] test normal Romberg Test: Negative Assessment and Plan Assessment & Plan (1) Facial pain: Comment: Will obtain facial x-ray. Patient has been educated she can utilize Tylenol, can utilize ice. Has been educated on signs of worsening symptoms and when to report to the office or when to present to the ED. Code(s): R51.9 - Headache, unspecified (2) Left knee pain: Comment: Will obtain left knee x-ray. Patient should rest affected joint. Can utilize Tylenol and ice. Code(s): M25.562 - Pain in left knee Qualifiers: Chronicity: acute Qualified Code(s): M25.562 - Pain in left knee (3) Anxiety: Comment: Patient is now currently taking 10 mg p.o. Lexapro daily. Patient has established psychiatrist. Patient also has upcoming appointment with therapist. Will obtain EKG Code(s): F41.9 - Anxiety disorder, unspecified Plan: Take your medications as prescribed. If you were prescribed antibiotics today, it is important that you take your medication to their entirety, do not skip any doses, do not finish them early. Return to the emergency department with new or worsening symptoms. Such as fevers, chills, chest pain, shortness of breath, nausea, vomiting, dizziness, headache, vision changes, lethargy In case of emergency call 911 Plan Patient has follow-up in 1 month. Orders: Orders AMB EKG-In Office Today Z13.6 - Encounter for screening for cardiovascular disorders XR knee LT 3V Today M25.562 - Pain in left knee XR facial bones min 3V Today R51.9 - Headache, unspecified Coding Level of Care Code Est Pt Level 4 (62984) Diagnoses Facial pain R51.9 Acute pain of left knee M25.562 Chronicity: acute Anxiety F41.9 Time Spent (min) 33
[2023-07-27 09:45] VITALS: BP 104/68; PULSE 83; O2SAT 96; BMI 31.0
== END 2023-07-27 11:27 | disposition home or self-care (01) ==
PROVIDERS: PCP Nurse Practitioner Primary Care; Visit Provider Nurse Practitioner Primary Care
DX: R51.9 Headache, unspecified (principal); M25.562 Pain in left knee; F41.9 Anxiety disorder, unspecified
CPT/HCPCS: 99214

== ENCOUNTER 2023-07-27 10:53 | Outpatient (REF) | payer BC, SELFPAY ==
--- NOTE | ~2023-07-27 | XR_ITS ---
EXAMINATION: XR FACIAL BONES CLINICAL INFORMATION: Headache, unspecified COMPARISON: None available. TECHNIQUE: 3 views of the facial bones were obtained. FINDINGS: There are no fractures or dislocations. The paranasal sinuses are well-developed and well aerated. No air-fluid levels within the sinuses. A nose ring is noted. Patient is partially edentulous. XR/XR facial bones min 3V IMPRESSION: No acute bony abnormality.
--- NOTE | ~2023-07-27 | XR_ITS ---
EXAMINATION: XR KNEE, LEFT CLINICAL INFORMATION: Pain in left knee COMPARISON: None available. TECHNIQUE: 2 standing views of the left knee. FINDINGS: No fracture or joint effusion. Alignment is anatomic. Joint spaces are maintained. No abnormal soft tissue calcification. Quadriceps enthesopathy is noted. XR/XR knee LT 2V IMPRESSION: No significant bony abnormality.
== END 2023-07-27 10:54 | disposition home or self-care (01) ==
LOC: HO.HMGCX 10:53
PROVIDERS: PCP Nurse Practitioner Primary Care; Visit Provider Nurse Practitioner Primary Care
DX: R51.9 Headache, unspecified (principal); M25.562 Pain in left knee
CPT/HCPCS: 70150; 73560

== ENCOUNTER 2023-08-25 13:29 | Outpatient (REF) | payer BC, SELFPAY ==
[2023-08-25 16:01] LABS: MANUAL DIFF FLAG NO
[2023-08-25 16:04] LABS: Basophils Percent Auto 0.4 % (0-2); Eosinophils Percent Auto 0.1 % (0-4); Hematocrit 40.2 % (37.0-47.0); Hemoglobin 13.5 g/dl (12.0-16.0); Imm Gran Abs Auto 0.06 X10*3/uL (0.00-0.03); Imm Gran Pct Auto 0.7 % (0.0-0.4); Lymphocytes Absolute Auto 1.7 X10*3/uL (1.2-4.9); Mean Corpuscular HGB Conc 33.6 g/dl (31.0-35.0); Mean Corpuscular Hemoglobin 31.5 pg (27.0-33.0); Mean Corpuscular Volume 93.7 fL (80.0-98.0); Mean Platelet Volume 11.3 fL (9.4-12.3); Monocytes Absolute Auto 0.4 X10*3/uL (0.1-1.2); Monocytes Percent Auto 4.7 % (2-11); Neutrophils Absolute Auto 6.9 x10*3/uL (2.0-8.3); Neutrophils Percent Auto 75.1 % (45-73); Platelet Count 238 X10*3/uL (160-400); Red Blood Count 4.29 X10*6/uL (4.20-5.50); Red Cell Distribution Width 12.3 % (11.0-16.0); White Blood Count 9.1 X10*3/uL (4.8-10.8)
[2023-08-25 16:20] LABS: Alanine Aminotransferase 17 U/L (0-31); Albumin Level 4.4 g/dL (3.5-5.0); Alkaline Phosphatase 54 U/L (39-117); Anion Gap 12 (12-20); Aspartate Amino Transferase 16 U/L (5-31); Bilirubin Total 0.4 mg/dL (0.0-1.0); Blood Urea Nitrogen 13 mg/dL (9-16); Calcium 9.5 mg/dL (8.4-10.2); Carbon Dioxide 28 mmol/L (22-29); Chloride 108 mmol/L (96-108); Estimated Glomerular Filt Rate > 60; Glucose Random 112 mg/dL (60-115); Potassium 3.9 mmol/L (3.3-5.1); Sodium 144 mmol/L (135-145); Total Protein 7.3 g/dL (6.5-8.0)
[2023-08-31 06:18] LABS: Vitamin D 25-OH, D2 <4 ng/mL; Vitamin D 25-OH, D3 40 ng/mL; Vitamin D 25-OH, Total 40 ng/mL (30-100)
== END 2023-08-25 13:30 | disposition home or self-care (01) ==
LOC: HO.HMGCLDS 13:29
PROVIDERS: PCP Nurse Practitioner Primary Care; Visit Provider Nurse Practitioner Primary Care
DX: Z13.0 Encounter for screening for diseases of the blood and blood-forming organs and certain disorders involving the immune mechanism (principal); Z91.89 Other specified personal risk factors, not elsewhere classified; Z13.21 Encounter for screening for nutritional disorder
CPT/HCPCS: 36415; 80053; 82306; 85025

== ENCOUNTER 2023-08-25 13:39 | Outpatient (AMB) | payer BC, SELFPAY ==
--- NOTE | 2023-08-25 13:46 | MHC.PC.OV ---
Vital Signs 08/25/23 13:49 Height 5 ft 3 in Weight 180 lb BMI 31.9 BP 118/80 Blood Pressure Location Lt brachial Position Sitting Pulse 98 Pulse Source Pulse Oximeter Pulse Oximetry (%) 98 Oxygen Delivery Method Room Air Intake Visit Reasons: 2-3 month follow up Intake Note: pt is here for f/u anxiety Allergies lidocaine [From LIDODERM] Allergy (Unknown, Verified 08/25/23 14:24) HIVES lidocaine gel Allergy (Unknown, Uncoded 08/25/23 14:24) hives Medication List - Last Reconciled 08/25/23 by ARPITA Lindsye cholecalciferol (vitamin D3) 50 mcg PO DAILY escitalopram oxalate (Lexapro) 10 mg PO DAILY levonorgestrel (Mirena) intrauterine naproxen 500 mg PO BID PRN sennosides (senna) 8.6 mg PO DAILY PRN Tobacco use date assessed: 08/25/23 Dental Screening Dental Screen Date: 08/25/23 Did you have a dental visit in the last 12 months?: Yes Did you have a dental problem in the last 6 months where you did not have access to dental care?: No Was dental information given to patient?: Patient has dentist HPI HPI Comments History of Present Illness Details Patient is a 33-year-old female in today for a follow-up visit. Patient has established psychiatrist for medication management for anxiety and depression. Patient was seen in office 3 weeks prior post mechanical fall. Patient hit her chin and left knee. Patient was given X-ray of both which came back unremarkable. She has been managing pain with naproxen with mild effect. Patient denies any vision changes, denies any tingling or numbness. Does report increase in migraine since she fell and hit her head On exam patient still has mild edema to the chin, and right maxillary area. Crepitus of the right TMJ with opening and closing her mouth. Will order CT scan. Patient's neuro workup is negative. Will start patient on Topiramate for migraine prophylaxis. PFSH Surgical History Hx of section Family History Sister Ovarian cancer Endometriosis Substance use disorder Mother Endometriosis Mental health disorder Substance use disorder Maternal Grandmother Substance use disorder Brother Substance use disorder Social History Housing: House Alcohol intake: current Alcohol intake frequency: holidays/special occasions only Patient Tobacco Use Status: Never used Tobacco e-Cigarette/Vaping Use: Never Used service: No Current occupational status: employed Current occupation: [employer] Current occupational exposures/hazards: No Sexual orientation: Straight/Heterosexual Gender identity: Female Cognitive needs: No Hearing needs: No Vision needs: No Female Reproductive History Menstrual Age of Menarche: 9 Questionnaire PHQ-9 Over the last 2 weeks, how often have you been bothered by any of the following problems? 29216 - PHQ-9 Billing: Patient declined-do not bill Source: Developed by Drs. Daniel Elizabeth, Debbie Pettit, Nitish Dee and colleagues, with an educational stephanie from [employer]. Thrive Questionnaire Date Thrive assessed: 05/18/23 AUDIT C Alcohol Use Questionnaire (AUDIT-C) 1. How often do you have a drink containing alcohol?: 2-4 times a month 2. How many drinks containing alcohol do you have on a typical day when you are drinking?: 1 or 2 3. How often do you have six or more drinks on one occasion?: Less than monthly Total Score: 3 GEETA-7 AMB Questionnaire GEETA-7 Date GEETA - 7 assessed: 05/18/23 Source: Developed by Drs. Daniel Elizabeth, Debbie Pettit, Nitish Dee and colleagues, with an educational stephanie from [employer]. GEETA-7 Assessment Billing GEETA-7 Assessment Tool: pt declined-do not bill Review of Systems Const All systems reviewed & are unremarkable except as noted in HPI and below Denies chills, Denies fever(s) and Reports headache(s) Eyes Denies blurry vision and Denies diplopia ENT Denies dizziness and Reports headache(s) Card Denies chest pain and Denies dyspnea Resp Denies dyspnea GI Denies diarrhea, Denies nausea and Denies vomiting Musc Denies abnormal gait, Reports arthralgias (Right jaw) and Denies numbness Neuro Denies abnormal gait, Denies dizziness, Reports headache(s), Denies numbness, Denies paresthesias and Denies tremor(s) Psych Denies homicidal ideation and Denies suicidal ideation Physical exam (Primary Care) Vital Signs: Last Vital Signs Pulse 98 08/25/23 13:49 BP 118/80 08/25/23 13:49 Pulse Ox 98 08/25/23 13:49 Oxygen Delivery Method Room Air 08/25/23 13:49 Care Plan Goal for BP management: Vital signs are stable. BMI result Body Mass Index 31.9 Tobacco/Smoking Status: Tobacco use Status Tobacco use date assessed 08/25/23 08/25/23 13:51 Patient Tobacco Use Status Never used Tobacco 08/25/23 13:51 e-Cigarette/Vaping Use Never Used 08/25/23 13:51 Thrive Assessment: Date of Thrive Assessment Date Thrive assessed 05/18/23 08/25/23 13:51 Const Other: Appearance: Alert.? Oriented X3.? No acute distress.? Head: Normocephalic, atraumatic, no step-offs or deformities Eyes: Pupils equal, round and reactive to light.?EOMI. ENT: Pharynx normal.?TM intact and pearly gutierrez. Face: +edema to chin. +Crepitus of right TMJ joint when opening and closing mouth. Neck: Normal inspection.? Neck supple.?Full ROM. CVS: Normal heart rate and rhythm.? Pulses normal.? Respiratory: No respiratory distress.? Breath sounds normal.? Abdomen: Soft and nontender.? Skin: Skin warm and dry.? Normal skin color.? Normal skin turgor.? Extremities: No lower extremity edema.? No calf ttp. 5/5 strength to bilateral upper and lower extremities Back: No midline tenderness, no C-spine tenderness, full range of motion, no CVA tenderness bilaterally Neuro: Oriented X 3.? No motor deficit.? No sensory deficit. CN 2-12 intact HENMT Head: Yes normocephalic Face and sinus: Yes crepitus (right TMJ) and Yes edema (chin) Eyes Alignment and Position: alignment normal Conjunctivae: conjunctivae normal Sclerae: sclerae normal Pupils: Equal, round and reactive pupils present EOM: EOMs intact bilaterally Direct Ophthalmoscopy: normal light reflex, no photophobia and no papilledema Neck Neck: Yes normal visual inspection Resp Effort & Inspection: normal respiratory effort Auscultation: clear to auscultation bilaterally Cardio Rate: regular rate Rhythm: regular rhythm Heart sounds: S1 normal heart sound present and S2 normal heart sound present Neuro Cranial nerves: Yes Equal, round and reactive pupils present Assessment and Plan Assessment & Plan (1) Migraines: Comment: Patient reports incidence of migraines have increased to 3 times per week. Does have associated symptoms aura and nausea. Patient had been utilizing naproxen with mild effect. Patient will be started on Topamax 25 mg p.o. for migraine prophylactics. Will also be given sumatriptan to be taken for abortive therapy. Patient has been educated the side effects of these medications and how to take them properly. He has been educated on signs of worsening symptoms and when to return to the office or when to port to the ED Code(s): G43.909 - Migraine, unspecified, not intractable, without status migrainosus Qualifiers: Intractability: not intractable Migraine type: unspecified Status migrainosus presence: without status migrainosus Qualified Code(s): G43.909 - Migraine, unspecified, not intractable, without status migrainosus (2) Right shoulder pain: Comment: Patient has referral in for physical therapy. Code(s): M25.511 - Pain in right shoulder Qualifiers: Chronicity: unspecified Qualified Code(s): M25.511 - Pain in right shoulder (3) Facial pain: Comment: Past facial x-ray came back normal. Patient is still having symptoms of edema in chin, right maxillary area. Patient has crepitus of right TMJ. Will order CT scan. Code(s): R51.9 - Headache, unspecified Plan: Patient will follow-up in 4 weeks. Orders: Orders CT head/brain wo IV con Today R51.9 - Headache, unspecified Medications: New sumatriptan succinate take 1 tab at onset of headache; if no relief may repeat 1 tab after at least 2 hrs; max = 4 tabs/24 hr PO 20 tabs 0RF topiramate 25 mg PO DAILY 60 tabs 0RF Changed From sennosides (senna) 8.6 mg PO DAILY 30 tabs 0RF To sennosides (senna) 8.6 mg PO DAILY PRN Coding Level of Care Code Est Pt Level 3 (47710) Diagnoses Migraine without status migrainosus, not intractable, unspecified migraine type G43.909 Intractability: not intractable Migraine type: unspecified Status migrainosus presence: without status migrainosus Right shoulder pain, unspecified chronicity M25.511 Chronicity: unspecified Facial pain R51.9 Time Spent (min) 27
[2023-08-25 13:49] VITALS: BP 118/80; PULSE 98; O2SAT 98; BMI 31.9
== END 2023-08-25 16:47 | disposition home or self-care (01) ==
PROVIDERS: PCP Nurse Practitioner Primary Care; Visit Provider Nurse Practitioner Primary Care
DX: G43.909 Migraine, unspecified, not intractable, without status migrainosus (principal); M25.511 Pain in right shoulder; R51.9 Headache, unspecified
CPT/HCPCS: 99213

== ENCOUNTER 2023-09-02 11:31 | Outpatient (AMB) | payer BC, SELFPAY ==
[2023-09-02 11:36] VITALS: BP 136/74; BMI 31.9
--- NOTE | 2023-09-02 11:36 | A.OFFVIS_ITS ---
Vital Signs 09/02/23 11:36 Height 5 ft 3 in Weight 180 lb BMI 31.9 BP 136/74 Blood Pressure Location Rt brachial Position Sitting Intake Visit Reasons: Ultra sound follow up/pelvic check [place] [employer] Flour: Miller [employer] Flour Present Allergies lidocaine [From LIDODERM] Allergy (Unknown, Verified 09/02/23 11:38) HIVES lidocaine gel Allergy (Unknown, Uncoded 09/02/23 11:38) hives Is last menstrual period known: Yes HPI Comments Details: Patient is here today for a follow up a pelvic ultrasound. She pushed previously seen in April and had some pelvic pain she since reports has resolved. Current Mirena IUD user. She has no other concerns PFSH Surgical History Hx of section Family History Sister Ovarian cancer Endometriosis Substance use disorder Mother Endometriosis Mental health disorder Substance use disorder Maternal Grandmother Substance use disorder Brother Substance use disorder Social History Housing: House Alcohol intake: current Alcohol intake frequency: holidays/special occasions only Patient Tobacco Use Status: Never used Tobacco e-Cigarette/Vaping Use: Never Used service: No Current occupational status: employed Current occupation: [employer] Current occupational exposures/hazards: No Sexual orientation: Straight/Heterosexual Gender identity: Female Cognitive needs: No Hearing needs: No Vision needs: No Female Reproductive History Menstrual Age of Menarche: 9 control method: progestin IUCD Date of last pap smear: 04/21/22 History of abnormal pap smear: No History of STI: No Review of Systems Const All systems reviewed & are unremarkable except as noted in HPI and below Endo Reports no additional complaints Physical Exam Vital Signs: Last Vital Signs BP 136/74 09/02/23 11:36 BMI result Body Mass Index 31.9 Const General: cooperative, healthy appearing and no acute distress Psych Appearance: well kempt Attitude: cooperative Thought process: Normal thought process present Results Reviewed Results Reviewed: [address] [address] Ultrasound Report Signed Patient: Angelica Caraballo MR#: [id number] : 1990 Acct:[id number] Age/Sex: 32 / F ADM Date: 05/10/23 Loc: HO.US Attending Dr: Mackenzie lAex CNM Ordering Physician: Mackenzie Alex CNM Date of Service: 05/10/23 Procedure(s): US pelvic and transvaginal Accession Number(s): [id number] cc: Roxann Payton MD; Mackenzie Alex CNM~ EXAMINATION: US PELVIS CLINICAL INFORMATION: Pelvic pain; the last menstrual period is not provided. COMPARISON: None available. TECHNIQUE: Ultrasound of the pelvis is performed using both transabdominal and transvaginal transducers along with Doppler. Transvaginal imaging is performed due to inadequate visualization transabdominally. FINDINGS: Uterus: The uterus is anteverted and measures 9.7 x 5.0 x 5.7 cm. The double wall endometrial thickness is 8 mm. An intrauterine device is seen, properly situated within the endometrial canal. The uterus is smooth in contour and has normal myometrial echogenicity. No visible fibroid. Nabothian cysts are seen within the cervix. Adnexa: Both ovaries are visualized. There is normal color flow to the adnexa. There is no ovarian torsion. There is no pelvic ascites or fluid collection. Right ovary measures 2.9 x 1.7 x 2.9 cm, volume 7.5 mL. Left ovary measures 2.6 x 1.9 x 1.6 cm, volume 4.1 mL. US/US pelvic and transvaginal IMPRESSION: 1. An intrauterine device is seen, properly situated within the endometrial canal. 2. Nabothian cysts are seen within the cervix. Dictated By: Jaya Justin MD Signed By: <Electronically signed by Jaya Justin MD in OV> 05/12/23 1308 DD/ 1511 TD/TT: Forensic Science Technician: ADELITA Assessment & Plan Assessment & Plan (1) Encounter to discuss test results: Code(s): Z71.2 - Person consulting for explanation of examination or test findings Plan Discussed: Ultrasound findings-IUD positioned properly. Advised to report any changes or concerns. Has annual exam per 04/26/2024 scheduled. All of her questions and concerns were addressed to the best of my ability and shared decision making. She is agreeable to the plan of care. This note is constructed using voice recognition software. While every effort has been made to ensure accuracy, qm consultant errors may have been included. Coding Level of Care Code Est Pt Level 3 (42817) Diagnoses Encounter to discuss test results Z71.2
== END 2023-09-02 13:15 | disposition home or self-care (01) ==
LOC: HO.HWS 11:31
PROVIDERS: PCP Nurse Practitioner Primary Care; Visit Provider Advanced Practice Midwife
DX: Z71.2 Person consulting for explanation of examination or test findings (principal)
CPT/HCPCS: 99213

== ENCOUNTER → 2023-09-02 11:31 | Outpatient (BNVA) | payer BC, SELFPAY | PROVIDERS: PCP Nurse Practitioner Primary Care; Visit Provider Advanced Practice Midwife ==

== ENCOUNTER 2023-09-19 11:25 | Outpatient (AMB) | payer BC, SELFPAY ==
--- NOTE | 2023-09-19 11:30 | MHC.PC.OV ---
Vital Signs 09/19/23 11:32 Height 5 ft 3 in Weight 183 lb BMI 32.4 BP 104/76 Blood Pressure Location Lt brachial Position Sitting Pulse 77 Pulse Source Pulse Oximeter Pulse Oximetry (%) 98 Oxygen Delivery Method Room Air Intake Visit Reasons: Annual PE Intake Note: pt is here for annual PE. Pap 04/21/22 Allergies lidocaine [From LIDODERM] Allergy (Unknown, Verified 09/19/23 11:50) HIVES lidocaine gel Allergy (Unknown, Uncoded 09/19/23 11:50) hives Medication List - Last Reconciled 09/19/23 by ARPITA Lindsey cholecalciferol (vitamin D3) 50 mcg PO DAILY escitalopram oxalate (Lexapro) 10 mg PO DAILY levonorgestrel (Mirena) intrauterine naproxen 500 mg PO BID PRN sennosides (senna) 8.6 mg PO DAILY PRN sumatriptan succinate take 1 tab at onset of headache; if no relief may repeat 1 tab after at least 2 hrs; max = 4 tabs/24 hr PO topiramate 25 mg PO DAILY Tobacco use date assessed: 09/19/23 Dental Screening Dental Screen Date: 08/25/23 HPI HPI Comments History of Present Illness Details Patient is a 33-year-old female in today for physical exam. Patient is up-to-date with Tdap vaccine. Patient has strong family history of breast cancer including a younger sister. Will order mammogram. Patient has establish care with her [facility] educational program director. Up-to-date with Pap smears Patient has a past medical history significant for Migraines-utilizing topiramate 25 mg p.o. daily with [id number] effect. Patient has sumatriptan for abortive therapy has not had to use that yet. Patient has referral of for Neurology. Anxiety and depression-patient has established psychiatrist. Patient utilizing escitalopram 10 mg p.o. daily with good effect. Dextroscoliosis-patient has referral of for physical therapy. Intermittent facial swelling post fall-patient has CT scan and 3 weeks[facility] History Hx of section Family History Sister Ovarian cancer Endometriosis Substance use disorder Mother Endometriosis Mental health disorder Substance use disorder Maternal Grandmother Substance use disorder Brother Substance use disorder Social History Housing: House Alcohol intake: current Alcohol intake frequency: holidays/special occasions only Patient Tobacco Use Status: Never used Tobacco e-Cigarette/Vaping Use: Never Used service: No Current occupational status: employed Current occupation: [employer] Current occupational exposures/hazards: No Sexual orientation: Straight/Heterosexual Gender identity: Female Cognitive needs: No Hearing needs: No Vision needs: No Female Reproductive History Menstrual Age of Menarche: 9 Questionnaire PHQ-9 Over the last 2 weeks, how often have you been bothered by any of the following problems? 1. Little interest or pleasure in doing things: several days 2. Feeling down, depressed, or hopeless: several days 3. Trouble falling or staying asleep, or sleeping too much: several days 4. Feeling tired or having little energy: several days 5. Poor appetite or overeating: several days 6. Feeling bad about yourself - or that you are a failure or have let yourself or your family down: not at all 7. Trouble concentrating on things, such as reading the newspaper or watching television: not at all 8. Moving or speaking so slowly that other people could have noticed. Or the opposite - being so fidgety or restless that you have been moving around a lot more than usual: not at all 9. Thoughts that you would be better off or of hurting yourself in some way: not at all Total score: 5 Depression Screening Interpretation: Negative Depression Screening Done: Yes 29842 - PHQ-9 Billing: Yes Source: Developed by Drs. Daniel Elizabeth, Debbie Pettit, Nitish Dee and colleagues, with an educational stephanie from [employer]. Thrive Questionnaire Date Thrive assessed: 09/19/23 I am a: Patient What is your living situation today?: I have a steady place to live Within the past 12 months, did the food you bought not last and you didn't have the money to get more?: Never true Within the past 12 months, did you worry whether your food would run out before you got money to buy more?: Never true Do you have trouble paying for medicines?: No Do you have trouble getting transportation to medical appointments?: No Do you have trouble paying your heating and electricity bill?: No Do you have trouble taking care of your child, family member or friend?: No Do you have trouble with day-to-day activities such as bathing, preparing meals, shopping, managing finances, etc.?: No Are you currently unemployed and looking for a job?: No Are you interested in more education?: No Please select the resources that you would like help with: Housing/Penitentiary Currently or been in a relationship where the following occur: I choose not to answer THRIVE Score: 0 AUDIT C Alcohol Use Questionnaire (AUDIT-C) 1. How often do you have a drink containing alcohol?: Monthly or less 2. How many drinks containing alcohol do you have on a typical day when you are drinking?: 1 or 2 3. How often do you have six or more drinks on one occasion?: Never Total Score: 1 GEETA-7 AMB Questionnaire GEETA-7 Date GEETA - 7 assessed: 09/19/23 Feeling nervous, anxious, or on edge: 2 = More than half the days Not being able to stop or control worryin = Several days Worrying too much about different things: 1 = Several days Trouble relaxin = Several days Being so restless that it is hard to sit still: 0 = Not at all Becoming easily annoyed or irritable: 0 = Not at all Feeling afraid as if something awful might happen: 0 = Not at all Total GEETA-7 score (0-4 normal; 5-9 mild; 10-14 moderate; 15-21 severe): 5 Source: Developed by Drs. Daniel Elizabeth, Debbie Pettit, Nitish Dee and colleagues, with an educational stephanie from [employer]. GEETA-7 Assessment Billing GEETA-7 Assessment Tool: GEETA-7 Assessment 18524 Review of Systems Const All systems reviewed & are unremarkable except as noted in HPI and below Physical exam (Primary Care) Vital Signs: Last Vital Signs Pulse 77 09/19/23 11:32 BP 104/76 09/19/23 11:32 Pulse Ox 98 09/19/23 11:32 Oxygen Delivery Method Room Air 09/19/23 11:32 BMI result Body Mass Index 32.4 Tobacco/Smoking Status: Tobacco use Status Tobacco use date assessed 09/19/23 09/19/23 11:38 Patient Tobacco Use Status Never used Tobacco 09/19/23 11:30 e-Cigarette/Vaping Use Never Used 09/19/23 11:30 PHQ-9: PHQ-9 Score PHQ-9: Total score 5 09/19/23 11:38 Depression Screening Interpretation: Negative Thrive Assessment: Date of Thrive Assessment Date Thrive assessed 09/19/23 09/19/23 11:38 Currently or been in a relationship where the following occur: I choose not to answer Const Other: Appearance: Alert.? Oriented X3.? No acute distress.? Head: Normocephalic, atraumatic, no step-offs or deformities Eyes: Pupils equal, round and reactive to light.? ENT: Pharynx normal.?TM intact and pearly gutierrez. Neck: Normal inspection.? Neck supple.? CVS: Normal heart rate and rhythm.? Pulses normal.? Respiratory: No respiratory distress.? Breath sounds normal.? Abdomen: Soft and nontender.? Skin: Skin warm and dry.? Normal skin color.? Normal skin turgor.? Extremities: No lower extremity edema.? No calf ttp. 5/5 strength to bilateral upper and lower extremities Back: No midline tenderness, no C-spine tenderness, full range of motion, no CVA tenderness bilaterally Neuro: Oriented X 3.? No motor deficit.? No sensory deficit. CN 2-12 intact Assessment and Plan Assessment & Plan (1) Physical exam: Comment: Patient is up-to-date with Tdap vaccine. Patient has strong family history of breast cancer including a younger sister. Will order mammogram. Patient has establish care with her [facility] educational program director. Up-to-date with Pap smears Patient has a past medical history significant for Migraines-utilizing topiramate 25 mg p.o. daily with [id number] effect. Patient has sumatriptan for abortive therapy has not had to use that yet. Patient has referral of for Neurology. Anxiety and depression-patient has established psychiatrist. Patient utilizing escitalopram 10 mg p.o. daily with good effect. Dextroscoliosis-patient has referral of for physical therapy. Intermittent facial swelling post fall-patient has CT scan and 3 weeks Code(s): Z00.00 - Encounter for general adult medical examination without abnormal findings (2) Dextroscoliosis: Comment: Will refer patient to physical therapy. Code(s): M41.80 - Other forms of scoliosis, site unspecified (3) Anxiety: Comment: Patient is now currently taking 10 mg p.o. Lexapro daily. Patient has established psychiatrist. Patient also has upcoming appointment with therapist. Will obtain EKG Code(s): F41.9 - Anxiety disorder, unspecified (4) Migraines: Comment: Patient reports incidence of migraines have increased to 3 times per week. Does have associated symptoms aura and nausea. Patient had been utilizing naproxen with mild effect. Patient will be started on Topamax 25 mg p.o. for migraine prophylactics. Will also be given sumatriptan to be taken for abortive therapy. Patient has been educated the side effects of these medications and how to take them properly. He has been educated on signs of worsening symptoms and when to return to the office or when to port to the ED Code(s): G43.909 - Migraine, unspecified, not intractable, without status migrainosus Qualifiers: Migraine type: unspecified Status migrainosus presence: without status migrainosus Intractability: not intractable Qualified Code(s): G43.909 - Migraine, unspecified, not intractable, without status migrainosus (5) Facial pain: Comment: Past facial x-ray came back normal. Patient is still having symptoms of edema in chin, right maxillary area. Patient has crepitus of right TMJ. Will order CT scan. Code(s): R51.9 - Headache, unspecified Orders: Orders MM tomosynthesis screening BI Today Z12.31 - Encounter for screening mammogram for malignant neoplasm of breast Coding Level of Care Code Est Pt Prev Care 18-39y(57092) Diagnoses Physical exam Z00.00 Dextroscoliosis M41.80 Anxiety F41.9 Migraine without status migrainosus, not intractable, unspecified migraine type G43.909 Migraine type: unspecified Status migrainosus presence: without status migrainosus Intractability: not intractable Facial pain R51.9 Additional Codes GEETA-7 Assessment Billing - GEETA-7 Assessment Tool: GEETA-7 Assessment 84883 ([id number]) Time Spent (min) 28
[2023-09-19 11:32] VITALS: BP 104/76; PULSE 77; O2SAT 98; BMI 32.4
== END 2023-09-19 13:41 | disposition home or self-care (01) ==
PROVIDERS: PCP Nurse Practitioner Primary Care; Visit Provider Nurse Practitioner Primary Care
DX: Z00.00 Encounter for general adult medical examination without abnormal findings (principal); M41.80 Other forms of scoliosis, site unspecified; F41.9 Anxiety disorder, unspecified; G43.909 Migraine, unspecified, not intractable, without status migrainosus
CPT/HCPCS: 99395

== ENCOUNTER 2023-10-07 14:02 | Outpatient (REF) | payer BC, SELFPAY ==
--- NOTE | ~2023-10-07 | CT_ITS ---
EXAMINATION: CT HEAD WITHOUT CONTRAST CT FACIAL BONES WITHOUT CONTRAST CLINICAL INFORMATION: Facial pain and headaches. COMPARISON: None. TECHNIQUE: Imaging was performed from the skull base to vertex without intravenous administration of contrast. In addition, helical noncontrast CT imaging was acquired through the facial bones and source images were reviewed along with axial reconstructions and sagittal and coronal MPRs. This CT examination was performed using dose optimization techniques as appropriate, variously including the following: *Automated exposure control. *Adjustment of mA and/or kV according to patient size (this includes techniques or standardized protocols for targeted exams where dose is matched to indication/reason for exam; i.e. extremities or head). *Use of iterative reconstruction technique. DLP: 654 mGy-cm FINDINGS: HEAD: There is no evidence of intracranial hemorrhage or extra-axial fluid collection. There is no mass effect, or edema. No CT evidence of acute territorial infarct. Ventricles, sulci, and cisterns are normal in size and configuration for patient age. No hydrocephalus. No midline shift. No significant white matter abnormalities. There are mild falcine calcifications. The sella appears normal. No extracranial soft tissue abnormalities. The paranasal sinuses, mastoid air cells, and tympanic cavities are normally aerated. MAXILLOFACIAL BONES: No evidence of maxillofacial bone fractures. The zygomatic arches remain intact. Zygoma are intact. No nasal bone fracture. The nasal septum remains midline. No evidence of mandibular or maxillary fracture. The mandibular condyles remain well-seated in their respective temporal articular grooves. Normal appearance of the intraconal and extraconal fat. No evidence of traumatic injury to the extraocular musculature or globes. Orbits are intact without fracture. Pterygoid plates are intact. Calvarium is intact. Skull base is intact. Large carious lesion in tooth #4, with associated buccal periapical lucency and small focus of cortical dehiscence (series 4, image 132; series 7, image 174). This could be a source of facial pain. There is also a periapical lucency surrounding the palatal root tip. Dental caries also seen in the maxillary incisors and mesial #10. Imaged cervical spine is intact as is the atlantoaxial junction and atlantoaxial joints. Facial soft tissues appear normal. No inflammation seen. Partially imaged thyroid is normal. CT/CT facial bones wo IV con IMPRESSION: 1. No acute intracranial abnormalities. 2. No maxillofacial bone fracture or significant paranasal sinus disease. 3. 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 Carious lesions also seen in the maxillary incisors and mesial aspect of tooth #10. Electronically signed by: Andrea Santos MD 11/11/2023 04:41 PM EDT
== END 2023-10-07 14:03 | disposition home or self-care (01) ==
LOC: HO.CT 14:02
PROVIDERS: PCP Internal Medicine; Visit Provider Nurse Practitioner Primary Care
DX: R51.9 Headache, unspecified (principal)
CPT/HCPCS: 70450; 70486

== ENCOUNTER → 2023-10-07 14:05 | Outpatient (BNV) | payer BC, SELFPAY | PROVIDERS: PCP Internal Medicine; Visit Provider Radiology Diagnostic Radiology | DX: R51.9 Headache, unspecified (principal) | CPT/HCPCS: 70450; 70486 ==

== ENCOUNTER 2023-11-04 14:00 | Outpatient (RCR) | payer BC, SELFPAY ==
--- NOTE | 2023-10-12 15:07 | MHC.PT.EP ---
[facility] [place] [facility] [place] [facility] [place] [facility] [address] [phone] F: [phone] F: [phone] F: [phone] F: [phone] Physical Therapy Plan of Care Date of Evaluation: 10/12/23 Date of Surgery: Diagnosis: scoliosis Assessment: Patient is a 33 year old R handed female who presents with s/s consistent with scoliosis, neck pain. 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 Patient past medical history includes migraines. Current impairments include pain, posture, ROM, strength, activity tolerance and functional mobility. Functional limitations include decreased ability to sit, stand, turn, sleep, lift and carry. Patient is motivated with good rehab potential. Skilled PT will address impairments and functional limitations in order to achieve goals. 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 Manual therapy to restore motion and function. Therapeutic exercise to improve strength and flexibility. Neuromuscular re-education for posture and balance. Therapeutic activities to return to functional activities of daily living. Electronically signed by: Luis A Brand, PT Please sign and return to therapist. Thank you for your referral.
--- NOTE | 2024-01-09 14:04 | MHC.PT.EP ---
[facility] [place] Office [place] Office [place] Office [address] [phone] F: [phone] F: [phone] F: [phone] F: [phone] Physical Therapy Plan of Care Date of Evaluation: 10/12/23 Date of Surgery: Diagnosis: scoliosis Assessment: Patient is a 33 year old R handed female who presents with s/s consistent with scoliosis, neck pain. 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 Patient past medical history includes migraines. Current impairments include pain, posture, ROM, strength, activity tolerance and functional mobility. Functional limitations include decreased ability to sit, stand, turn, sleep, lift and carry. Patient is motivated with good rehab potential. Skilled PT will address impairments and functional limitations in order to achieve goals. 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 Manual therapy to restore motion and function. Therapeutic exercise to improve strength and flexibility. Neuromuscular re-education for posture and balance. Therapeutic activities to return to functional activities of daily living. Electronically signed by: Luis A Brand, PT Please sign and return to therapist. Thank you for your referral.
== END 2024-04-04 09:35 | disposition home or self-care (01) ==
LOC: HO.PTCHIC 14:00
PROVIDERS: PCP Internal Medicine; Visit Provider Nurse Practitioner Primary Care
DX: M25.511 Pain in right shoulder (principal); M41.80 Other forms of scoliosis, site unspecified; M54.9 Dorsalgia, unspecified
CPT/HCPCS: 97110; 97140; 97161

== ENCOUNTER 2024-01-30 08:15 | Outpatient (AMB) | payer BC, SELFPAY ==
[2024-01-30 08:16] VITALS: BP 120/74; PULSE 88; O2SAT 97; BMI 35.3
--- NOTE | 2024-01-30 08:16 | MHC.OFFVIS ---
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 Required: No Accompanied by: Self / Same As Patient Allergies lidocaine [From LIDODERM] Allergy (Unknown, Verified 01/30/24 08:23) HIVES lidocaine gel Allergy (Unknown, Uncoded 09/19/23 11:50) hives Medication List - Last Reconciled 01/30/24 by ARPITA Candelaria cholecalciferol (vitamin D3) 50 mcg PO DAILY escitalopram oxalate (Lexapro) 10 mg PO DAILY levonorgestrel (Mirena) intrauterine naproxen 500 mg PO BID PRN sennosides (senna) 8.6 mg PO DAILY PRN sumatriptan succinate take 1 tab at onset of headache; if no relief may repeat 1 tab after at least 2 hrs; max = 4 tabs/24 hr PO topiramate 25 mg PO DAILY Do you need a note to return to daycare/school/sports/work: No HPI Comments Details: Right-handed 33-yr-old female presents for new pt evaluation of headache disorder. Pt reports she has had migraine headache since age 10 w/o precipitating factors, this was about a yr after menarche. The migraines have becoming stronger and longer over the past year, to the point where it is now affecting her life. Her goal for today's visit is to get better control of her headache control. PMH and ROS are notable for:? General: fatigue Musculoskeletal disorders or injury: Neck/shoulder tightness, mild scoliosis- has done PT. RUE numbness/tingling- comes on suddenly, even when just sitting. Right hand feels weaker, more diffiuclty holding heavier object or opening jars. Mood d/o: Depression and Anxiety- well-controlled. Has a therapist and psychiatric provider. 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 Family history of migraine or other headache disorder: mother and maternal grandmother, and her son. Pertinent denials include: Usual dizziness. History of concussion/head injury, Respiratory d/o, CV disease, Endocrine d/o, metabolic d/o, History of seizure, syncope, or drop attacks, Leg Cramps. 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 Age/time of onset: none Preceding causes: denies Previous work-up: Head/Face CT- had fallen and struck her face- no concussion. O10/07/2023. CT/CT head/brain/Face wo IV con IMPRESSION: 1. No acute intracranial abnormalities. 2. No maxillofacial bone fracture or significant paranasal sinus disease. 3. 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 Carious lesions also seen in the maxillary incisors and mesial aspect of tooth #10. Typical headache characteristics: Prodrome symptoms: unsure Aura: Vision becomes hazy Pain intensity: moderate-severe Location, quality, characteristics: Back of neck achiness, can be in temples, frontal region or in the back of her head, can become holocranial throbbing, pressure, stabbing pain. Associated symptoms: photophobia, red eye, eye twitching sometimes, phonophobia, osmophobia, ponytail allodynia, nausea, spinning dizziness, facial puffiness- prone to this w/o DIAZ as well, Right arm/fingers tingling w/wo DIAZ, fatigue/weak/achey, cognitive difficulties, activity intolerance, bending over/standing up exacerbates a headache. Postdrome: Lingering fatigue Triggers: stress Time of day: No specific time of day Duration and Frequency: 1-2 attacks, which last 1-3 days (including postdraome)- about 15 headache days per month. Can have crystal clear head days in between attacks. How does headache impact your life? Has needed to miss doing her daily activities and work. Current acute medication use/interventions: Sumatripatn 50mg x's 1-2 dsoes- not effective but tolertaed well. Naproxen 500mg and Excedrin Tylenol 3 tabs at onset and if ineffetive, takes another 3 tabs of Excedrin Tylenol. Current preventative medication use: Topiramate 25mg qhs x's months, can make her sleepy if takes in the am. Non-pharmacological interventions: Rest. Heating pad on shoulders, Ice on shoulders, cold rag on shoulders. [facility] Medical History (Updated 01/30/24 @ 22:30 by ARPITA Candelaria) Migraines Surgical History Hx of section Family History Sister Ovarian cancer Endometriosis Substance use disorder Mother Endometriosis Mental health disorder Substance use disorder Maternal Grandmother Substance use disorder Brother Substance use disorder Social History Housing: House Alcohol intake: current Alcohol intake frequency: holidays/special occasions only Patient Tobacco Use Status: Never used Tobacco e-Cigarette/Vaping Use: Never Used service: No Current occupational status: employed Current occupation: [employer] Current occupational exposures/hazards: No Sexual orientation: Straight/Heterosexual Gender identity: Female Cognitive needs: No Hearing needs: No Vision needs: No Female Reproductive History Menstrual Age of Menarche: 9 Review of Systems ENT Reports Normal hearing present Neuro Reports Normal hearing present Physical Exam Vital Signs: Last Vital Signs Pulse 88 01/30/24 08:16 BP 120/74 01/30/24 08:16 Pulse Ox 97 01/30/24 08:16 Oxygen Delivery Method Room Air 01/30/24 08:16 BMI result Body Mass Index 35.3 Const Orientation/consciousness: patient oriented x3 Eyes Pupils: Equal, round and reactive pupils present Resp Effort & Inspection: normal respiratory effort and able to speak in complete sentences Neuro Other: No palpable scalp tenderness. Right facial asymmetry- right eyebrow rests lower than left right lateral mouth rests higher than left. Mallampati stage IV Signs of lower teeth wearing. Aleks TMJ tightness. Mild forward head and shoulder posture. Bilateral posterior cervical tightness. Cervical ROM: slightly limited Bilateral Spurling: elicits non-radiating posterior cervical discomfort. Right hand grasp 5-/5, slightly weaker than left hand grasp 5/5 Otherwise MS 5/5 BUE Tinnel, Phalen, Medial compression test- negative. General: patient oriented x3 and moves all extremities Cranial nerves: Yes Equal, round and reactive pupils present, Yes Bilaterally intact EOM present (convergence elicits slight unwell feeling), Yes Nystagmus not present, Yes Symmetric palate elevation present, Yes Normal hearing present and Yes Ability to bilaterally elevate shoulders present Cognition (Neuro): normal cognition Gait exam (Neuro): Normal gait present Motor exam (neuro): 5/5 motor strength present throughout Deep tendon reflexes (DTR's): Right triceps reflex intensity grade: 2+, Left triceps reflex intensity grade: 2+, Rt Biceps (C5, C6): 2+, Left biceps reflex intensity grade: 2+, Right brachioradialis reflex intensity grade: 2+, Left brachioradialis reflex intensity grade: 2+, Right patellar reflex intensity grade: 2+ and Left patellar reflex intensity grade: 2+ Coordination: [id number] test normal, tandem gait normal and Romberg test negative Pupils: Normal pupillary reactivity/response: bilateral Psych Appearance: grossly normal Mental Status: mental status grossly normal Speech and movement: Normal speech and movement present Affect: normal affect Attitude: cooperative Thought process: Normal thought process present Assessment & Plan Assessment & Plan (1) Worsening headaches: Code(s): R51.9 - Headache, unspecified Category: Medical (2) Chronic migraine without aura: Code(s): G43.709 - Chronic migraine without aura, not intractable, without status migrainosus Category: Medical Qualifiers: Status migrainosus presence: without status migrainosus Intractability: not intractable Qualified Code(s): G43.709 - Chronic migraine without aura, not intractable, without status migrainosus (3) Snoring: Code(s): R06.83 - Snoring Category: Medical (4) Excessive daytime sleepiness: Code(s): G47.19 - Other hypersomnia Category: Medical (5) Sleep difficulties: Code(s): G47.9 - Sleep disorder, unspecified Category: Medical (6) Numbness and tingling of right upper extremity: Code(s): R20.0 - Anesthesia of skin; R20.2 - Paresthesia of skin Category: Medical Plan Pt advised to undergo: Brain MRI w/wo to assess for secondary intracranial etiologies for worsening headache in setting of facial asymmetry. RUE paresthesia. XR c-spine w/ flex/ext XR t-spine Future considerations: RUE EMG/NCS. For overall headache management: Optimize good self-care, including but not limited to maintaining a healthy diet, adequate fluid intake, adequate sleep, and engaging in regular physical activity. Track headaches, especially after any treatment regimen changes. Migraine Etece is one of many headache tracking apps. Information shared on non-pharmacological interventions which may help to alleviate headache attack burden. For light sensitivity: Patient may benefit from trying blue light filtering glasses, green glasses, green light therapy. Avoiding wearing sunglasses inside. For sound sensitivity: Patent may benefit from trying noise cancellation ear plugs. Neuromodulation devices, which can be used alone or with pharmacological treatment. For acute headache treatment: Discussed importance of taking acute medications at the first sign of headache, however stressed importance of avoiding acute medication overuse (especially with combined headache medications). Trial increasing Sumatripatn dose from 50mg to 100mg tab, 1/2 - 1 tab (50-100mg) at onset of headache, may repeat in 2 hours. Max of 2 tabs (200mg) per 24 hours. May adjunct with Naproxen 500mg q 12 hrs or Tylenol 540-1000mg q 4-6 hrs prn. Potential adverse effects of triptans, include but are not limited to nausea, fatigue, chest tightness/tingling (usually passes within a few minutes), medication overuse headaches. Stop Excedrin/Tylenol. Previous acute migraine medication trials: Sumatriptan 50mg ineffective. Acute migraine medication contraindications: None at this time For headache prevention medication: Preventative medications should be taken routinely as prescribed for best effect, it may take several weeks for full effect to take effect. Start Riboflavin 400mg qam Increase Topiramate from 25mg qhs to 50mg qs x's 1 wk, then 75mg qhs x's 1 wk, then 100mg qhs. Potential adverse effects of Topiramate, include but are not limited to fatigue, cognitive changes, paresthesias (tingling), vision changes, kidney stones. Previous migraine prevention medication trials: Amitriptyline 10mg- made her sleepy- stopped by PCP d/t family h/o early CV disease. Migraine prevention medication contraindications: Caution w/ Aimovig or Qulipta d/t constipation. Pt seen in collaboration w/ Dr Misa Cross. Will follow-up upon review of above and patient to follow-up in clinic in 3-4 months or sooner prn. Orders: Orders XR cervical spine w flex/ext Today M54.2 - Cervicalgia XR thoracic spine 2V Today M41.80 - Other forms of scoliosis, site unspecified, R20.0 - Anesthesia of skin, R20.2 - Paresthesia of skin RT home sleep study Today G47.19 - Other hypersomnia, G47.9 - Sleep disorder, unspecified, R06.83 - Snoring MR head/brain wo/w con Today Q67.0 - Congenital facial asymmetry, R20.0 - Anesthesia of skin, R20.2 - Paresthesia of skin, R51.9 - Headache, unspecified Medications: New sumatriptan succinate 50 - 100 mg orally at onset of headache, may repeat in 2 hrs PRN; max 2 tabs per day or 4 tabs/week (may take with Naproxen) 12 tabs 6RF migraine headache 30 days riboflavin (vitamin B2) 400 mg PO DAILY 30 tabs 6RF 30 days magnesium oxide may hold for loose stools 400 mg PO BEDTIME 30 tabs 6RF 30 days Changed From topiramate 25 mg PO DAILY 60 tabs 0RF To topiramate 2 tabs qhs x's 1 wk, then 3 tabs qhs x's 1 wk, then 4 tabs qhs orally daily; 120 tabs 3RF 30 days Discontinued sumatriptan succinate Discontinued Reason: Doctor's Order take 1 tab at onset of headache; if no relief may repeat 1 tab after at least 2 hrs; max = 4 tabs/24 hr PO 20 tabs 0RF Coding Level of Care Code New Pt Level 4 (90877) Diagnoses Worsening headaches R51.9 Chronic migraine without aura without status migrainosus, not intractable G43.709 Status migrainosus presence: without status migrainosus Intractability: not intractable Snoring R06.83 Excessive daytime sleepiness G47.19 Sleep difficulties G47.9 Numbness and tingling of right upper extremity R20.0; R20.2
== END 2024-01-30 09:51 | disposition home or self-care (01) ==
PROVIDERS: PCP Nurse Practitioner Primary Care; Visit Provider Nurse Practitioner Family
DX: R51.9 Headache, unspecified (principal); G43.709 Chronic migraine without aura, not intractable, without status migrainosus; R06.83 Snoring; G47.19 Other hypersomnia; G47.9 Sleep disorder, unspecified; R20.0 Anesthesia of skin; R20.2 Paresthesia of skin
CPT/HCPCS: 99204

== ENCOUNTER → 2024-01-30 08:15 | Outpatient (BNVA) | payer BC, SELFPAY | PROVIDERS: PCP Nurse Practitioner Primary Care; Visit Provider Nurse Practitioner Family ==

== ENCOUNTER 2024-02-13 11:51 | Outpatient (AMB) | payer BC, SELFPAY ==
[2024-02-13 12:56] VITALS: BP 102/70; PULSE 86; O2SAT 100; BMI 35.1
--- NOTE | 2024-02-13 12:56 | A.OFFPC_ITS ---
Vital Signs 02/13/24 12:56 Height 5 ft 3 in Weight 198 lb BMI 35.1 BP 102/70 Blood Pressure Location Rt brachial Position Sitting Pulse 86 Pulse Source Pulse Oximeter Pulse Oximetry (%) 100 Oxygen Delivery Method Room Air Intake Visit Reasons: Transfer from [facility] Note: Pt is here today transfer from [facility] f/u anxiety Allergies lidocaine [From LIDODERM] Allergy (Unknown, Verified 02/13/24 13:01) HIVES lidocaine gel Allergy (Unknown, Uncoded 02/13/24 13:01) hives Medication List - Last Reconciled 02/13/24 by Roxann Payton MD cholecalciferol (vitamin D3) 50 mcg PO DAILY escitalopram oxalate (Lexapro) 10 mg PO DAILY levonorgestrel (Mirena) intrauterine magnesium oxide 400 mg PO BEDTIME 30 days naproxen 500 mg PO BID PRN riboflavin (vitamin B2) 400 mg PO DAILY 30 days sennosides (senna) 8.6 mg PO DAILY PRN sumatriptan succinate 50 - 100 mg orally at onset of headache, may repeat in 2 hrs PRN; max 2 tabs per day or 4 tabs/week (may take with Naproxen) 30 days topiramate 2 tabs qhs x's 1 wk, then 3 tabs qhs x's 1 wk, then 4 tabs qhs orally daily; 30 days Tobacco use date assessed: 02/13/24 Dental Screening Dental Screen Date: 02/13/24 Did you have a dental visit in the last 12 months?: Yes Did you have a dental problem in the last 6 months where you did not have access to dental care?: Yes Was dental information given to patient?: Patient has dentist HPI Transfer from [facility] Details she sees a staff anesthetist [facility] , prescribed escitalopram 10mg once a day PFS Medical History (Updated 01/30/24 @ 22:30 by ARPITA Candelaria) Migraines Surgical History Hx of section Family History Sister Ovarian cancer Endometriosis Substance use disorder Mother Endometriosis Mental health disorder Substance use disorder Maternal Grandmother Substance use disorder Brother Substance use disorder Social History Housing: House Alcohol intake: current Alcohol intake frequency: holidays/special occasions only Patient Tobacco Use Status: Never used Tobacco e-Cigarette/Vaping Use: Never Used service: No Current occupational status: employed Current occupation: [employer] Current occupational exposures/hazards: No Sexual orientation: Straight/Heterosexual Gender identity: Female Cognitive needs: No Hearing needs: No Vision needs: No Female Reproductive History Menstrual Age of Menarche: 9 Questionnaire Thrive Questionnaire Date Thrive assessed: 09/19/23 I am a: Patient What is your living situation today?: I have a steady place to live Within the past 12 months, did the food you bought not last and you didn't have the money to get more?: Never true Within the past 12 months, did you worry whether your food would run out before you got money to buy more?: Never true Do you have trouble paying for medicines?: No Do you have trouble getting transportation to medical appointments?: No Do you have trouble paying your heating and electricity bill?: No Do you have trouble taking care of your child, family member or friend?: No Do you have trouble with day-to-day activities such as bathing, preparing meals, shopping, managing finances, etc.?: No Are you currently unemployed and looking for a job?: No Are you interested in more education?: No Please select the resources that you would like help with: None Currently or been in a relationship where the following occur: I choose not to answer THRIVE Score: 0 GEETA-7 AMB Questionnaire GEETA-7 Date GEETA - 7 assessed: 09/19/23 Source: Developed by Drs. Daniel Elizabeth, Debbie Pettit, Nitish Dee and colleagues, with an educational stephanie from [employer]. Physical exam (Primary Care) Vital Signs: Last Vital Signs Pulse 86 02/13/24 12:56 BP 102/70 02/13/24 12:56 Pulse Ox 100 02/13/24 12:56 Oxygen Delivery Method Room Air 02/13/24 12:56 BMI result Body Mass Index 35.1 Tobacco/Smoking Status: Tobacco use Status Tobacco use date assessed 02/13/24 02/13/24 13:01 Patient Tobacco Use Status Never used Tobacco 02/13/24 12:57 e-Cigarette/Vaping Use Never Used 02/13/24 12:57 Thrive Assessment: Date of Thrive Assessment Date Thrive assessed 09/19/23 02/13/24 12:57 Currently or been in a relationship where the following occur: I choose not to answer Office Procedures Flu Questionnaire Does the patient have a severe egg allergy?: No Does the patient have severe life threatening allergies?: No Does the patient have a fever or illness today?: No Has the patient ever had Guillain-[place] Syndrome?: No Has the patient ever had any past reaction to a flu shot?: No Immunizations Fluarix Triv 4896-2037 (PF) 45 mcg (15 mcg x 3)/0.5 mL IM syringe Performing Provider: Roxann Payton MD Performing Location: [facility] Adult [facility] Administered by: Ya Contreras CMA on 02/13/24 13:40 Dose Route Admin Location Dispensed Lot Number Expiration Date [facility] Tow Driver 0.5 mL IM Right Deltoid 0.5 mL [id number] 09/03/24 99114-803-81 A [employer] VIS Given Date VIS Provided VIS Publication Date 02/13/24 Single Vaccine 20 Eligibility Eligibility Date Funding Source Not [facility] Eligible 02/13/24 Private Coding Assessment & Plan Assessment & Plan Orders: Orders Influenza 0546-8347 Immunization Today Z23 - Encounter for immunization Medications: New Fluarix Triv 5639-0106 (PF) (flu vacc [id number] 6mos up(PF)) 0.5 mL IM ONCE 0.5 mL 0RF NS Z23 - Encounter for immunization azelastine administer into each nostril 2 sprays intranasal BID PRN 30 mL 0RF nasal congestion
--- OUTSIDE RECORDS SUMMARY | 2024-02-15 15:20 | XMS_ITS | Data Portability ---
Author Organization LIZZY Wallace [facility] [address] Address [address] [place] [address] Assessment No assessment recorded. Plan of Treatment Reminders Order Date Submit Date Provider Last Modified By Organization Details Last Modified Time Details Appointments None record ed. Lab None record ed. Referral None record ed. Procedures None record ed. Surgeries None record ed. Imaging XR, foot, 3 or more view 023 07/20/19 [facility], [address] [place], [address], 14:45:36 Medication Orders None record ed. Patient TargetsNo targets recorded. Patient Instructions Encounter Date Encounter Id Patient Instructions Last Modified By Organization Details Last Modified Time 07/19/2022 [id number] contusion: care instructions [email or web address] Not available 07/19/2022 14:10:30 learning about rice (rest, ice, compression, and elevation) Not available 07/19/2022 14:10:30 learning about rice (rest, ice, compression, and elevation) Not available 07/19/2022 13:56:47 Reason for Referral None Reported. Results Created Date Observation Date Name Description Value Unit Range Abnormal Flag Note LastModifiedBy Organization Detail LastModifiedTime 07/20/19 23 07/19/2022 XR, foot, 3 or more view No observ ation record ed. [email or web address] [facility] [address] [place], [address], 07/19/2022 15:08:34 Result Notes None recorded. Problems No Known Problems Procedures Surgical History Date Name Laterality Status Provider Name and Address Organization Details Recorded Time delivery completed Cathryn Nathan PA - [facility] 07/19/2022 13:46:32 Imaging Results Imaging Date Name Status LastModified by Organiz ation Details LastModified Time 07/19/2022 XR, foot, 3 or more view completed [email or web address] [facility] [address] [facility] , [place], [address], 07/19/2022 15:08:34 Procedure Notes None recorded. Medical Equipment None Reported. Allergies Allergen ID Allergen Name Allergen Category Reaction Reaction Severity Criticality Documentation Date Start Date Code Code System Note Provider Name and Address Organization Details Recorded Time 852905 lidocaine medicatio n hives Not available Not available 07/19/2022 6387 RxNorm Cathryn monsalve, PA - [facility] 13:45:27 Medications Name Sig Start Date Stop Date Status Note LastModified by Organization Details LastModified Time benzonatate 200 mg capsule TAKE 1 CAPSULE BY MOUTH THREE TIMES A DAY FOR 7 DAYS 07/19 completed Not Available Not Available Not Available prednisone 20 mg tablet TAKE 2 TABLETS BY MOUTH EVERY DAY FOR 5 DAYS 07/19 completed Not Available Not Available Not Available albuterol sulfate HFA 90 mcg/actuati on aerosol inhaler TAKE 1 PUFF INHALATIO N EVERY 4 HOURS NEEDED X30 DAYS active Not Available Not Available No t Available amoxicillin 875 mg-potassiu m clavulanate 125 mg tablet TAKE 1 TABLET BY MOUTH TWICE A DAY FOR 7 DAYS 07/19 completed Not Available Not Available Not Available Lorena Moffett [facility] spacer USE DIRECTED active Not Available Not Available No t Available Vitals Date Recorded Body height Body mass index (BMI) Body weight Respiratory rate Oxygen saturation Oxygen saturation in Arterial blood by Pulse oximetry Heart rate Body temperature Systolic blood pressure Diastolic blood pressure Provider Name and Address Organization Details Last Updated DateTime 3 160.02 cm 29.6 kg/m2 29911.9 3 g 20 /min 99 % 99 % 90 /min 98 [degF] 106 mm[Hg] 69 mm[Hg] Cathryn Evans PA - [facility] 13:48:01 Social History Question Answer Notes LastModified by Organizat ion Details LastModified Time Tobacco Smoking Status Never Smoker Cathryn [place] null, PA - [facility] 07/19/2022 13:46:21 What Is Your Level Of Alcohol Consumption? None Information not available 07/19/2022 Have You Had Direct Contact, Or Contact During Intimacy, With Monkeypox Rash, Scabs, Or Body Fluids From A Person With Monkeypox? No Information not available 07/19/2022 Do You Use Any Illicit Or Recreational Drugs? No Information not available 07/19/2022 Have You Recently Traveled Abroad? No Information not available 07/19/2022 Do You Or Have You Ever Used Any Other Forms Of Tobacco Or Nicotine? No Information not available 07/19/2022 Sex: Unknown Functional Status None recorded. Mental Status None recorded. Family History Relationship Description Onset Age of this Age Resolved Age Notes LastModified by Organization Details LastModified Time Father No current problems or disability Not available 07/19 13:46:14 Mother No current problems or disability Not available 07/19 13:46:14 Medical History No medical history recorded. Gynecological History Statement/Question Response Is there any chance of ? No LMP N/A Obstetrics History GPAL:G 0 P 0 0 0 0 Immunizations Vaccine Type Date Status Note Provider Nam e and Address Organization Details Recorded Time Influenza, MDCK, quadrivalent, PF 2 completed Cathryn [place] null, PA - [facility] 07/19/2022 13:45:40 COVID-19, mRNA, LNP-S, PF, 30 mcg/0.3 mL dose 1 completed Cathryn [place] null, PA - [facility] 07/19/2022 13:45:40 COVID-19, mRNA, LNP-S, PF, 30 mcg/0.3 mL dose 1 completed Cathryn Nathan null, PA - [facility] 07/19/2022 13:45:40 COVID-19, mRNA, LNP-S, PF, 30 mcg/0.3 mL dose, myesha-sucrose 2 completed Cathryn [place] null, PA - [facility] 07/19/2022 13:45:40 pneumococcal polysaccharide PPV23 9 completed Cathryn [place] null, PA - [facility] 07/19/2022 13:45:40 Tdap 4 completed Cathryn [place] null, PA - [facility] 07/19/2022 13:45:40 Influenza, split virus, trivalent, preservative 6 completed Cathryn Nathan null, PA - [facility] 07/19/2022 13:45:40 HPV, quadrivalent 4 completed Cathryn Nathan null, PA - [facility] 07/19/2022 13:45:40 DTaP 8 completed Cathryn Nathan null, PA - [facility] 07/19/2022 13:45:40 Influenza, split virus, quadrivalent, PF 8 completed Cathryn [place] null, PA - [facility] 07/19/2022 13:45:40 Past Encounters Encounter ID Performer Location Encounter Start Date Encounter Closed Date Diagnosis/Indication Diagnosis SNOMED-CT Code Diagnosis ICD10 Code [id number] [address] [place] [address] 03/27/2017 17:32:53 03/27/2017 18:04:58 [id number] [address] [place] [address] 11/27/2021 09:55:39 11/27/2021 12:03:32 [id number] [address] [place] [address] 05/24/2017 11:51:49 05/24/2017 12:26:29 [id number] [address] [place] [address] 02/09/2015 20:00:12 02/09/2015 20:13:06 [id number] [address] [place] [address] 10/05/2017 08:59:01 10/05/2017 09:40:39 [id number] [address] [facility] [place] [address] 03/11/2021 11:43:55 03/11/2021 13:15:07 [id number] [place] [address] 03/11/2021 09:06:50 03/11/2021 11:43:01 [id number] [address] [facility] [place] [address] 11/19/2014 14:23:46 11/19/2014 15:21:05 [id number] Gonzalo Jacobsen MD [address] [place] [address] 07/19/2022 13:37:29 07/19/2022 14:22:16 Pain in left foot [id number] 81715 M79.672 Contusion of left foot [id number] 5864335 S90.32XA Health Concerns Section Related Observation LastModified by Organization Detai ls LastModified Time None Recorded Concern Status LastModified by Organization Details LastModified Time None Recorded Advance Directives Directive None Recorded Payers Encounter Date Sequence Insurance Name Policy Number Policy Hurley Covered Member ID Hurley Member ID Guarantor Name 10/05/2017 1 [place] 112 Angelica L [place] [id number] Angelica L [place] 03/11/2021 1 [place] 112 Angelica L [place] [id number] Angelica L [place] 03/11/2021 1 [place] 112 Angelica L Ilya [id number] Angelica L [place] 11/27/2021 1 [place] 112 Angelica L Ily[place] [id number] Angelica L [place] 07/19/2022 1 [place] 112 Angelica L Ilya [id number] Angelica L Ilya Notes Date Note Type Note Provider Name and Address Organization Details Recorded Time 07/19/2022 text/html Foot/Ankle UCReported bypatient.Locatio n:left Probleminjury; swelling Severity:moderate Duration:2 days Associated Symptoms:swelling ;ecchymosis Aggravating factors:standing; walking Alleviating factors:analgesic s Gonzalo Jacobsen MD [address] [place], [address], [place] - [facility] 07/19/2022 15:22:05 OBGyn Episode No OBEpisode recorded.
== END 2024-02-13 14:24 | disposition home or self-care (01) ==
PROVIDERS: PCP Internal Medicine; Visit Provider Internal Medicine
DX: Z23 Encounter for immunization (principal)

== ENCOUNTER → 2024-02-13 11:51 | Outpatient (BNVA) | payer BC, SELFPAY | PROVIDERS: PCP Internal Medicine; Visit Provider Internal Medicine | DX: G43.709 Chronic migraine without aura, not intractable, without status migrainosus (principal); F41.9 Anxiety disorder, unspecified; J30.89 Other allergic rhinitis; Z23 Encounter for immunization; Z79.899 Other long term (current) drug therapy | CPT/HCPCS: 90471; 90656; 96127 ==

== ENCOUNTER → 2024-03-12 10:22 | Outpatient (BNV) | payer BC, SELFPAY | PROVIDERS: PCP Internal Medicine; Visit Provider Radiology Diagnostic Radiology | DX: R51.9 Headache, unspecified (principal) | CPT/HCPCS: 70553 ==

== ENCOUNTER 2024-03-12 10:23 | Outpatient (REF) | payer BC, SELFPAY ==
--- NOTE | ~2024-03-12 | MR_ITS ---
EXAMINATION: MR BRAIN WITHOUT THEN WITH IV CONTRAST HISTORY: R51.9 - Headache, unspecified TECHNIQUE: Sagittal T1, and axial T1, FLAIR, T2, gradient echo, and diffusion weighted MR images of the brain were obtained. Subsequently, axial, and coronal T1-weighted images were obtained after the administration of intravenous gadolinium. 9 mL Gadavist was administered. COMPARISON: Correlation is made with an unenhanced head CT dated 10/07/2023. FINDINGS: The brain parenchyma is unremarkable, demonstrating normal gutierrez/white differentiation. No foci of abnormal signal intensity are identified. The ventricular system is normal in size and configuration. There is no mass effect or midline shift. No intra or extra-axial fluid collections are identified. There are no foci of restricted diffusion. There is no abnormal contrast enhancement. Normal vascular flow voids are noted in the basilar and carotid arteries. The visualized paranasal sinuses are clear. MR/MR head/brain wo/w con IMPRESSION: Unremarkable MRI of the brain without and with contrast. Electronically signed by: Daniel Leal MD 03/12/2024 01:28 PM [facility] [place]
--- OUTSIDE RECORDS SUMMARY | 2024-03-12 11:26 | XMS_ITS | Data Portability ---
Author Organization LIZZY Wallace [facility] [address] Address [address] [place] [address] Assessment No assessment recorded. Plan of Treatment Reminders Order Date Submit Date Provider Last Modified By Organization Details Last Modified Time Details Appointments None record ed. Lab None record ed. Referral None record ed. Procedures None record ed. Surgeries None record ed. Imaging XR, foot, 3 or more view 023 07/20/19 [facility], [address] [place], [address], 14:45:36 Medication Orders None record ed. Patient TargetsNo targets recorded. Patient Instructions Encounter Date Encounter Id Patient Instructions Last Modified By Organization Details Last Modified Time 07/19/2022 [id number] contusion: care instructions [email or web address] Not available 07/19/2022 [...] ed. [email or web address] [facility] [address] [place], [address], 07/19/2022 15:08:34 Result Notes None recorded. Problems No Known Problems Procedures Surgical History Date Name Laterality Status Provider Name and Address Organization Details Recorded Time delivery completed Cathryn Nathan PA - [facility] 07/19/2022 13:46:32 Imaging Results Imaging Date Name Status LastModified by Organiz ation Details LastModified Time 07/19/2022 XR, foot, 3 or more view completed [email or web address] [facility] [address] [facility] , [place], [address], 07/19/2022 15:08:34 Procedure Notes None recorded. Medical Equipment None Reported. Allergies Allergen ID Allergen Name Allergen Category Reaction Reaction Severity Criticality Documentation Date Start Date Code Code System Note Provider Name and Address Organization Details Recorded Time 669151 lidocaine medicatio n hives Not available Not [...] Available Not Available Not Available Lorena Moffett [facility] spacer USE DIRECTED active Not Available Not Available No t Available Vitals Date Recorded Body height Body mass index (BMI) Body weight Respiratory rate Oxygen saturation Oxygen saturation in Arterial blood by Pulse oximetry Heart rate Body temperature Systolic blood pressure Diastolic blood pressure Provider Name and Address Organization Details Last Updated DateTime 3 160.02 cm 29.6 kg/m2 70599.9 3 g 20 /min 99 % 99 % 90 /min 98 [degF] 106 mm[Hg] 69 mm[Hg] Cathryn Evans PA - [facility] 13:48:01 Social History Question Answer Notes LastModified by Organizat ion Details LastModified Time Tobacco Smoking Status Never Smoker Cathryn [place] null, PA - [facility] 07/19/2022 13:46:21 [...] Influenza, MDCK, quadrivalent, PF 2 completed Cathryn Nathan null, PA - [facility] 07/19/2022 13:45:40 COVID-19, mRNA, LNP-S, PF, 30 mcg/0.3 mL dose 1 completed Cathryn Nathan null, PA - [facility] 07/19/2022 13:45:40 COVID-19, mRNA, LNP-S, PF, 30 mcg/0.3 mL dose 1 completed Cathryn Lucan null, PA - [facility] 07/19/2022 13:45:40 COVID-19, mRNA, LNP-S, PF, 30 mcg/0.3 mL dose, myesha-sucrose 2 completed Cathryn Nathan null, PA - [facility] 07/19/2022 13:45:40 pneumococcal polysaccharide PPV23 9 completed Cathryn Lucan null, PA - [facility] 07/19/2022 13:45:40 Tdap 4 completed Cathryn Nathan null, PA - [facility] 07/19/2022 13:45:40 Influenza, split virus, trivalent, preservative 6 completed Cathryn Lucan null, PA - [facility] 07/19/2022 13:45:40 HPV, quadrivalent 4 completed Cathryn Lucan null, PA - [facility] 07/19/2022 13:45:40 DTaP 8 completed Cathryn Nathan null, PA - [facility] 07/19/2022 13:45:40 Influenza, split virus, quadrivalent, PF 8 completed Cathryn Lucan null, PA - [facility] 07/19/2022 13:45:40 Past Encounters Encounter ID Performer Location Encounter Start Date Encounter Closed Date Diagnosis/Indication Diagnosis SNOMED-CT Code Diagnosis ICD10 Code Diagnosis Note [id number] [address] [place] [address] 03/27/2017 17:32:53 03/27/2017 18:04:58 [id number] [address] [place] [address] 11/27/2021 09:55:39 11/27/2021 12:03:32 [id number] [address] [place] [address] 05/24/2017 11:51:49 05/24/2017 12:26:29 [id number] [address] [place] [address] 02/09/2015 20:00:12 02/09/2015 20:13:06 [id number] [address] [place] [address] 10/05/2017 08:59:01 10/05/2017 09:40:39 [id number] [address] [facility] [place] [address] 03/11/2021 11:43:55 03/11/2021 13:15:07 [id number] [address] [facility] [place] [address] 03/11/2021 09:06:50 03/11/2021 11:43:01 [id number] [address] [facility] [place] [address] 11/19/2014 14:23:46 11/19/2014 15:21:05 [id number] Gonzalo Jacobsen MD [address] [facility] [place] [address] 07/19/2022 13:37:29 07/19/2022 14:22:16 Pain in left foot 6951055627 06258 M79.672 Your x-ray will be reviewed by a radiologis t. You will be notified of any discrepanc ies between findings discussed at your visit today and the radiology interpreta tion. Contusion of left foot [id number] 1033312 S90.32XA No fracture on xray and the cut is healing well. No signs of infection. Health Concerns Section Related Observation LastModified by Organization Detai ls LastModified Time None Recorded Concern Status LastModified by Organization Details LastModified Time None Recorded Advance Directives Directive None Recorded Payers Encounter Date Sequence Insurance Name Policy Number Policy Hurley Covered Member ID Hurley Member ID Guarantor Name 10/05/2017 1 [place] 112 Angelica [place] [id number] Angelica L [place] 03/11/2021 1 [place] 112 Angelica L [place] [id number] Angelica L [place] 03/11/2021 1 [place] 112 Angelica [place] [id number] Angelica L Ilya 11/27/2021 1 [place] 112 Angelica L [place] [id number] Angelica L [place] 07/19/2022 1 [place] 112 Angelica Caraballo [id number] Angelica Caraballo Notes Date Note Type Note Provider Name and Address Organization Details Recorded Time 07/19/2022 text/html Foot/Ankle UCReported bypatient.Locatio n:left Probleminjury; swelling Severity:moderate Duration:2 days Associated Symptoms:swelling ;ecchymosis Aggravating factors:standing; walking Alleviating factors:analgesic s Gonzalo Jacob[facility] [place], [address], [place] - [facility] 07/19/2022 15:22:05 OBGyn Episode No OBEpisode recorded.
[2024-03-12] MEDS: gadobutroL 10 ML VIAL IVPUSH (11:43)
== END 2024-03-12 10:24 | disposition home or self-care (01) ==
LOC: HO.MRI 10:23
PROVIDERS: PCP Internal Medicine; Visit Provider Nurse Practitioner Family
DX: R51.9 Headache, unspecified (principal); R20.0 Anesthesia of skin; R20.2 Paresthesia of skin; Q67.0 Congenital facial asymmetry
CPT/HCPCS: 70553; A9585

== ENCOUNTER → 2024-03-14 14:02 | Outpatient (REF) | payer BC, SELFPAY ==
--- OUTSIDE RECORDS SUMMARY | 2024-03-14 14:09 | XMS_ITS | Data Portability ---
Author Organization LIZZY Wallace s [address] Address [address] [place] [address] Assessment No assessment recorded. Plan of Treatment Reminders Order Date Submit Date Provider Last Modified By Organization Details Last Modified Time Details Appointments None record ed. Lab None record ed. Referral None record ed. Procedures None record ed. Surgeries None record ed. Imaging XR, foot, 3 or more view 023 07/20/19 [facility], [address] [place], [address], 14:45:36 Medication Orders None record ed. Patient TargetsNo targets recorded. Patient Instructions Encounter Date Encounter Id Patient Instructions Last Modified By Organization Details Last Modified Time 07/19/2022 [id number] contusion: care instructions [email or web address] Not available 07/19/2022 [...] ed. [email or web address] [facility] [address] [place], [address], 07/19/2022 15:08:34 Result Notes None recorded. Problems No Known Problems Procedures Surgical History Date Name Laterality Status Provider Name and Address Organization Details Recorded Time delivery completed Cathryn Nathan PA - [facility] 07/19/2022 13:46:32 Imaging Results Imaging Date Name Status LastModified by Organiz ation Details LastModified Time 07/19/2022 XR, foot, 3 or more view completed [email or web address] [facility] [address] [facility] , [place], [address], 07/19/2022 15:08:34 Procedure Notes None recorded. Medical Equipment None Reported. Allergies Allergen ID Allergen Name Allergen Category Reaction Reaction Severity Criticality Documentation Date Start Date Code Code System Note Provider Name and Address Organization Details Recorded Time 269475 lidocaine medicatio n hives Not available Not [...] Available Not Available Not Available Lorena Moffett [facility] spacer USE DIRECTED active Not Available Not Available No t Available Vitals Date Recorded Body height Body mass index (BMI) Body weight Respiratory rate Oxygen saturation Oxygen saturation in Arterial blood by Pulse oximetry Heart rate Body temperature Systolic blood pressure Diastolic blood pressure Provider Name and Address Organization Details Last Updated DateTime 3 160.02 cm 29.6 kg/m2 62762.9 3 g 20 /min 99 % 99 % 90 /min 98 [degF] 106 mm[Hg] 69 mm[Hg] Cathryn Evans PA - [facility] 13:48:01 Social History Question Answer Notes LastModified by Organizat ion Details LastModified Time Tobacco Smoking Status Never Smoker Cathryn [place] null, PA - [facility] 07/19/2022 13:46:21 [...] 30 mcg/0.3 mL dose 1 completed Cathryn [place]ala null, PA - [facility] 07/19/2022 13:45:40 COVID-19, mRNA, LNP-S, PF, 30 mcg/0.3 mL dose, myesha-sucrose 2 completed Cathryn Nathan null, PA - [facility] 07/19/2022 13:45:40 pneumococcal polysaccharide PPV23 9 completed Cathryn Ogallala null, PA - [facility] 07/19/2022 13:45:40 Tdap 4 completed Cathryn Nathan null, PA - [facility] 07/19/2022 13:45:40 Influenza, split virus, trivalent, preservative 6 completed Cathryn [place]ala null, PA - [facility] 07/19/2022 13:45:40 HPV, quadrivalent 4 completed Cathryn [place]ala null, PA - [facility] 07/19/2022 13:45:40 DTaP 8 completed Cathryn Nathan null, PA - [facility] 07/19/2022 13:45:40 Influenza, split virus, quadrivalent, PF 8 completed Cathryn [place]gallala null, PA - [facility] 07/19/2022 13:45:40 Past Encounters Encounter ID Performer Location Encounter Start Date Encounter Closed Date Diagnosis/Indication Diagnosis SNOMED-CT Code Diagnosis ICD10 Code Diagnosis Note [id number] [address] [place] [address] 03/27/2017 17:32:53 03/27/2017 18:04:58 [id number] [address] [place] [address] 11/27/2021 09:55:39 11/27/2021 12:03:32 [id number] [address] [place] [address] 05/24/2017 11:51:49 05/24/2017 12:26:29 [id number] [address] [place] [address] 02/09/2015 20:00:12 02/09/2015 20:13:06 [id number] [address] [place] [address] 10/05/2017 08:59:01 10/05/2017 09:40:39 [id number] [address] [facility] [place] [address] 03/11/2021 11:43:55 03/11/2021 13:15:07 [id number] [address] [place] [address] 03/11/2021 09:06:50 03/11/2021 11:43:01 [id number] [address] [facility] [place] [address] 11/19/2014 14:23:46 11/19/2014 15:21:05 [id number] Gonzalo Jacobsen MD [address] [facility] [place] [address] 07/19/2022 13:37:29 07/19/2022 14:22:16 Pain in left foot [id number] 24250 M79.672 Your x-ray will be reviewed by a radiologis t. You will be notified of any discrepanc ies between findings discussed at your visit today and the radiology interpreta tion. Contusion of left foot [id number] S90.32XA No fracture on xray and the [...] [employer] [employer] 112 Angelica L Elgin [id number] Angelica L Elgin 03/11/2021 1 [employer] [employer] 112 Angelica L Ilya [id number] Angelica L Elgin 03/11/2021 1 [employer] [employer] 112 Angelica L Elgin [id number] Angelica L Ilya 11/27/2021 1 [employer] [employer] 112 Angelica L Elgin [id number] Angelica L Elgin 07/19/2022 1 [employer] [employer] 112 Angelica Caraballo [id number] Angelica Caraballo Notes Date Note Type Note Provider Name and Address Organization Details Recorded Time 07/19/2022 text/html Foot/Ankle UCReported bypatient.Locatio n:left Probleminjury; swelling Severity:moderate Duration:2 days Associated Symptoms:swelling ;ecchymosis Aggravating factors:standing; walking Alleviating factors:analgesic s Gonzalo Jacobsen [facility] [place], [address], PA - [facility] 07/19/2022 15:22:05 OBGyn Episode No OBEpisode recorded.
== END ==
LOC: HO.SL 14:02
PROVIDERS: PCP Internal Medicine; Visit Provider Nurse Practitioner Family
DX: R06.83 Snoring (principal); G47.19 Other hypersomnia; G47.9 Sleep disorder, unspecified
CPT/HCPCS: 95806

== ENCOUNTER → 2024-03-14 14:11 | Outpatient (BNV) | payer BC, SELFPAY | PROVIDERS: PCP Internal Medicine; Visit Provider Psychiatry & Neurology Neurology | DX: R06.83 Snoring (principal); G47.10 Hypersomnia, unspecified | CPT/HCPCS: 95806 ==

== ENCOUNTER 2024-05-01 07:46 | Outpatient (REF) | payer BC, SELFPAY ==
[2024-05-02 11:48] LABS: CT PCR NOT DETECTED (Not Detect.); NG PCR NOT DETECTED (Not Detect.)
[2024-05-02 13:48] LABS: Bacterial Vaginosis PCR POSITIVE (Negative); Candida Group PCR NOT DETECTED (Not Detect); Candida glab krusei PCR NOT DETECTED (Not Detect); Trichomonas vaginalis PCR NOT DETECTED (Not Detect)
== END 2024-05-01 07:47 | disposition home or self-care (01) ==
LOC: HO.LAB 07:46
PROVIDERS: Advanced Practice Midwife; Visit Provider Nurse Practitioner Family
DX: Z20.2 Contact with and (suspected) exposure to infections with a predominantly sexual mode of transmission (principal)
CPT/HCPCS: 81515; 87491; 87591

== ENCOUNTER → 2024-05-01 07:46 | Outpatient (AMB) | payer BC, SELFPAY ==
--- NOTE | 2024-05-01 07:46 | MHC.OFFVIS ---
Intake Visit Reasons: Follow Up 3mo Intake Note: Patient presents follow up Migraine/Sleep. MRI/HST in chart Allergies lidocaine [From LIDODERM] Allergy (Unknown, Verified 05/01/24 07:47) HIVES lidocaine gel Allergy (Unknown, Uncoded 02/13/24 13:01) hives Medication List - Last Reconciled 05/01/24 by Doris Reddy, ARPITA azelastine 2 sprays intranasal BID PRN cholecalciferol (vitamin D3) 50 mcg PO DAILY escitalopram oxalate (Lexapro) 10 mg PO DAILY levonorgestrel (Mirena) intrauterine magnesium oxide 400 mg PO BEDTIME 30 days naproxen 500 mg PO BID PRN ondansetron 4 mg PO Q4H PRN 30 days riboflavin (vitamin B2) 400 mg PO DAILY 30 days rizatriptan 5 - 10 mg (0.5 - 1 x 10 mg) PO Q2H PRN 30 days sennosides (senna) 8.6 mg PO DAILY PRN topiramate 100 mg PO BEDTIME 30 days HPI Comments Details: Right-handed 33-yr-old female presents follow-up of migraine with aura Pt denies any significant medical history changes. 03/12/2024 brain MRI with and without contrast was unremarkable 03/14/2024 home sleep study did not show any evidence for sleep apnea, with AHI 0/hour and O2 leonidas 85%, with average SpO2 93%, and SpO2 under 90% for only 0.5 minutes. Patient has not yet had C-spine and T-spine x-rays done, thought she was supposed to be called for an appointment She states since the last visit, and starting the new migraine preventative medications, her migraine attacks are better controlled. States now only having sporadic migraine attacks. She has been having 3 migraine attacks per month, which last 1 day. She states she is compliant with Riboflavin 400mg qam and Magenesium oxide 400 mg q.h.s. She is currently taking Topiramate 100mg qhs. Overall tolerating these well, however has been having intermittent nausea during the day. She is not interested in increasing her preventative regimen at this time. She is taking much less Tylenol now.. She has tried Sumatriptan 100mg, which helps quickly but causes a a self limited brief chest sharp/shooting discomfort but also significant nausea- so only is taking as a lot resort. Though she notes, that maybe some of the nausea and residual ill feeling may be just from the migraine itself. 01/30/2024 initial HPI: Right-handed 33-yr-old female presents for new pt evaluation of headache disorder. Pt reports she has had migraine headache since age 10 w/o precipitating factors, this was about a yr after menarche. The migraines have becoming stronger and longer over the past year, to the point where it is now affecting her life. Her goal for today's visit is to get better control of her headache control. PMH and ROS are notable for:? General: fatigue Musculoskeletal disorders or injury: Neck/shoulder tightness, mild scoliosis- has done PT. RUE numbness/tingling- comes on suddenly, even when just sitting. Right hand feels weaker, more diffiuclty holding heavier object or opening jars. Mood d/o: Depression and Anxiety- well-controlled. Has a therapist and psychiatric provider. 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 Family history of migraine or other headache disorder: mother and maternal grandmother, and her son. Pertinent denials include: Usual dizziness. History of concussion/head injury, Respiratory d/o, CV disease, Endocrine d/o, metabolic d/o, History of seizure, syncope, or drop attacks, Leg Cramps. 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 Age/time of onset: none Preceding causes: denies Previous work-up: Head/Face CT- had fallen and struck her face- no concussion. O10/07/2023. CT/CT head/brain/Face wo IV con IMPRESSION: 1. No acute intracranial abnormalities. 2. No maxillofacial bone fracture or significant paranasal sinus disease. 3. 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 Carious lesions also seen in the maxillary incisors and mesial aspect of tooth #10. Typical headache characteristics: Prodrome symptoms: unsure Aura: Vision becomes hazy Pain intensity: moderate-severe Location, quality, characteristics: Back of neck achiness, can be in temples, frontal region or in the back of her head, can become holocranial throbbing, pressure, stabbing pain. Associated symptoms: photophobia, red eye, eye twitching sometimes, phonophobia, osmophobia, ponytail allodynia, nausea, spinning dizziness, facial puffiness- prone to this w/o DIAZ as well, Right arm/fingers tingling w/wo DIAZ, fatigue/weak/achey, cognitive difficulties, activity intolerance, bending over/standing up exacerbates a headache. Postdrome: Lingering fatigue Triggers: stress Time of day: No specific time of day Duration and Frequency: 1-2 attacks, which last 1-3 days (including postdraome)- about 15 headache days per month. Can have crystal clear head days in between attacks. How does headache impact your life? Has needed to miss doing her daily activities and work. Current acute medication use/interventions: Sumatripatn 50mg x's 1-2 dsoes- not effective but tolertaed well. Naproxen 500mg and Excedrin Tylenol 3 tabs at onset and if ineffetive, takes another 3 tabs of Excedrin Tylenol. Current preventative medication use: Topiramate 25mg qhs x's months, can make her sleepy if takes in the am. Non-pharmacological interventions: Rest. Heating pad on shoulders, Ice on shoulders, cold rag on shoulders. [facility] Medical History Migraines Surgical History Hx of section Family History Sister Ovarian cancer Endometriosis Substance use disorder Mother Endometriosis Mental health disorder Substance use disorder Maternal Grandmother Substance use disorder Brother Substance use disorder Social History Housing: House Alcohol intake: current Alcohol intake frequency: holidays/special occasions only Patient Tobacco Use Status: Never used Tobacco e-Cigarette/Vaping Use: Never Used service: No Current occupational status: employed Current occupation: [employer] Current occupational exposures/hazards: No Sexual orientation: Straight/Heterosexual Gender identity: Female Cognitive needs: No Hearing needs: No Vision needs: No Female Reproductive History Menstrual Age of Menarche: 9 Physical Exam Const General: cooperative and no acute distress Orientation/consciousness: patient oriented x3 Resp Effort & Inspection: normal respiratory effort and able to speak in complete sentences Neuro General: patient oriented x3 Cognition (Neuro): normal cognition Psych Appearance: grossly normal Mental Status: mental status grossly normal Speech and movement: Normal speech and movement present Affect: normal affect Attitude: cooperative Telehealth Telehealth Telehealth Platform: [facility] Location of provider rendering services: practice address Location of patient: address on file Patient Identification confirmed using: Name, : Yes Telehealth method: video Patient verbally consented to treatment: Yes Patient verbally consented to billing insurance company: Yes Patient informed of any privacy concerns related to visit: Yes Minutes spent on Phone/Video with Pt.: 16 Assessment & Plan Assessment & Plan (1) Chronic migraine without aura: Code(s): G43.709 - Chronic migraine without aura, not intractable, without status migrainosus Category: Medical Qualifiers: Status migrainosus presence: without status migrainosus Intractability: not intractable Qualified Code(s): G43.709 - Chronic migraine without aura, not intractable, without status migrainosus (2) Snoring: Code(s): R06.83 - Snoring Category: Medical (3) Sleep difficulties: Code(s): G47.9 - Sleep disorder, unspecified Category: Medical (4) Numbness and tingling of right upper extremity: Code(s): R20.0 - Anesthesia of skin; R20.2 - Paresthesia of skin Category: Medical Plan Reviewed: Brain MRI w/wo- unremarkable- no evidence of secondary etiologies for migraine symptoms. HST- no evidence for sleep apnea. Patient advised to have XR c-spine w/ flex/ext and XR t-spine as ordered- advised that the orders in place, and she does not need an appointment to have these done. Future considerations: RUE EMG/NCS. For overall headache management: Optimize good self-care, including but not limited to maintaining a healthy diet, adequate fluid intake, adequate sleep, and engaging in regular physical activity. Track headaches. For acute headache treatment: Discussed importance of taking acute medications at the first sign of headache, however stressed importance of avoiding acute medication overuse (especially with combined headache medications). Discontinue Sumatripatn 100 mg tab-effective but not tolerated. Trial Rizatriptan 10mg tab, 1/2 - 1 tab (5-10mg) at onset of headache, may repeat in 2 hours. Max of 2 tabs (200mg) per 24 hours. May adjunct with OTC Tylenol 650mg every 4 hours, Ibuprofen (liquigel) 600mg every 6 hours, or Naproxen (liquigel) 440mg every 12 hrs as needed. Potential adverse effects of triptans, include but are not limited to nausea, fatigue, chest tightness/tingling (usually passes within a few minutes), medication overuse headaches. Previous acute migraine medication trials: Sumatriptan 50mg ineffective. Sumatripatn 100 mg tab-effective but not tolerated. Acute migraine medication contraindications: None at this time For headache prevention medication: Hold magnesium 400 mg q.h.s.- as this may be causing the nausea. Continue Riboflavin 400mg qam- however if holding and magnesium does not result in decreased nausea, may hold riboflavin. Continue Topiramate 100 mg q.h.s.- order adjusted from 4 25 mg tabs to a single 100 mg tab. Previous migraine prevention medication trials: Amitriptyline 10mg- made her sleepy- stopped by PCP d/t family h/o early CV disease. Migraine prevention medication contraindications: Caution w/ Aimovig or Qulipta d/t constipation. Will follow-up upon review of above and patient to follow-up in clinic in 6 months or sooner prn. Medications: New rizatriptan max 2 tabs per day or 4 tabs per week 5 - 10 mg (0.5 - 1 x 10 mg) PO Q2H 30 days PRN 12 tabs 3RF migraine headache ondansetron 4 mg PO Q4H 30 days PRN 20 tabs 1RF nausea and vomiting topiramate 100 mg PO BEDTIME 30 days 30 tabs 6RF G43.709 - Chronic migraine without aura, not intractable, without status migrainosus Discontinued sumatriptan succinate Discontinued Reason: Doctor's Order (0.5 - 1 x 100 mg) 50 - 100 mg orally at onset of headache, may repeat in 2 hrs PRN; max 2 tabs per day or 4 tabs/week (may take with Naproxen) 30 days 12 tabs 6RF migraine headache topiramate Discontinued Reason: Ancillary Entered New Order 2 tabs qhs x's 1 wk, then 3 tabs qhs x's 1 wk, then 4 tabs qhs orally daily; 30 days 120 tabs 3RF Coding Level of Care Code Tele Est Pt Level 4 (27035) Diagnoses Chronic migraine without aura without status migrainosus, not intractable G43.709 Status migrainosus presence: without status migrainosus Intractability: not intractable Snoring R06.83 Sleep difficulties G47.9 Numbness and tingling of right upper extremity R20.0; R20.2
--- OUTSIDE RECORDS SUMMARY | 2024-05-01 07:50 | XMS_ITS | Data Portability ---
Author Organization LIZZY Wallace s [address] Address [address] [place] [address] Assessment No assessment recorded. Plan of Treatment Reminders Order Date Submit Date Provider Last Modified By Organization Details Last Modified Time Details Appointments None record ed. Lab None record ed. Referral None record ed. Procedures None record ed. Surgeries None record ed. Imaging XR, foot, 3 or more view 023 07/20/19 [facility], [address] [place], [address], 14:45:36 Medication Orders None record ed. Patient TargetsNo targets recorded. Patient Instructions Encounter Date Encounter Id Patient Instructions Last Modified By Organization Details Last Modified Time 07/19/2022 [id number] contusion: care instructions [email or web address] Not available 07/19/2022 [...] ed. [email or web address] [facility] [address] [place], [address], 07/19/2022 15:08:34 Result Notes None recorded. Problems No Known Problems Procedures Surgical History Date Name Laterality Status Provider Name and Address Organization Details Recorded Time delivery completed Cathryn Nathan PA - [facility] 07/19/2022 13:46:32 Imaging Results Imaging Date Name Status LastModified by Organiz ation Details LastModified Time 07/19/2022 XR, foot, 3 or more view completed [email or web address] [facility] [address] [facility] , [place], [address], 07/19/2022 15:08:34 Procedure Notes None recorded. Medical Equipment None Reported. Allergies Allergen ID Allergen Name Allergen Category Reaction Reaction Severity Criticality Documentation Date Start Date Code Code System Note Provider Name and Address Organization Details Recorded Time 281808 lidocaine medicatio n hives Not available Not available 07/19/2022 6387 RxNorm Cathryn monsalve PA - [facility] 13:45:27 Medications Name [...] Available Not Available Not Available Lorena Moffett [facility] spacer USE DIRECTED active Not Available Not Available No t Available Vitals Date Recorded Body height Body mass index (BMI) Body weight Respiratory rate Pain severity - 0-10 verbal numeric rating [Score] - Reported Oxygen saturation Oxygen saturation in Arterial blood by Pulse oximetry Heart rate Body temperature Systolic blood pressure Diastolic blood pressure Provider Name and Address Organization Details Last Updated DateTime 3 160.02 cm 29.6 kg/m2 56207.9 3 g 20 /min 5 99 % 99 % 90 /min 98 [degF] 106 mm[Hg] 69 mm[Hg] Cathryn Evans PA - [facility] 13:48:01 Social History Question Answer Notes LastModified by Organizat ion Details LastModified Time Tobacco Smoking Status Never Smoker Cathryn Nathan null, PA - [facility] 07/19/2022 13:46:21 [...] 30 mcg/0.3 mL dose 1 completed Cathryn [place] null, PA - [facility] 07/19/2022 13:45:40 COVID-19, mRNA, LNP-S, PF, 30 mcg/0.3 mL dose, myesha-sucrose 2 completed Cathryn Nathan null, PA - [facility] 07/19/2022 13:45:40 pneumococcal polysaccharide PPV23 9 completed Cathryn [place] null, PA - [facility] 07/19/2022 13:45:40 Tdap 4 completed Cathryn Nathan null, PA - [facility] 07/19/2022 13:45:40 Influenza, split virus, trivalent, preservative 6 completed Cathryn [place] null, PA - [facility] 07/19/2022 13:45:40 HPV, quadrivalent 4 completed Cathryn Nathan null, PA - [facility] 07/19/2022 13:45:40 DTaP 8 completed Cathryn [place] null, PA - [facility] 07/19/2022 13:45:40 Influenza, split virus, quadrivalent, PF 8 completed Cathryn Nathan null, PA - [facility] 07/19/2022 13:45:40 Past Encounters Encounter ID Performer Location Encounter Start Date Encounter Closed Date Diagnosis/Indication Diagnosis SNOMED-CT Code Diagnosis ICD10 Code Diagnosis Note [id number] [address] [place] [address] 03/27/2017 17:32:53 03/27/2017 18:04:58 [id number] [address] [place] [address] 11/27/2021 09:55:39 11/27/2021 12:03:32 [id number] [address] [place] [address] 05/24/2017 11:51:49 05/24/2017 12:26:29 [id number] [address] [place] [address] 02/09/2015 20:00:12 02/09/2015 20:13:06 [id number] [address] [place] [address] 10/05/2017 08:59:01 10/05/2017 09:40:39 [id number] [address] [facility] [address] 03/11/2021 11:43:55 03/11/2021 13:15:07 [id number] [address] [facility] [place] [address] 03/11/2021 09:06:50 03/11/2021 11:43:01 [id number] [address] [facility] [place] [address] 11/19/2014 14:23:46 11/19/2014 15:21:05 [id number] Gonzalo Jacobsen MD [address] [facility] [place] [address] 07/19/2022 13:37:29 07/19/2022 14:22:16 Pain in left foot [id number] 41317 M79.672 Your x-ray will be reviewed by a radiologis t. You will be notified of any discrepanc ies between findings discussed at your visit today and the radiology interpreta tion. Contusion of left foot [id number] S90.32XA No fracture on xray and the [...] [place] [employer] 112 Angelica L Kula [id number] Angelica L Ilya 03/11/2021 1 [employer] [employer] 112 Angelica L Kula [id number] Angelica L Ilya 03/11/2021 1 [employer] [employer] 112 Angelica L Ilya [id number] Angelica L Kula 11/27/2021 1 [employer] [employer] [place] [employer] 112 Angelica L Kula [id number] Angelica Caraballo 07/19/2022 1 [place] [employer]EE [employer]GRAM 112 Angelica Caraballo [id number] Angelica Caraballo Notes Date Note Type Note Provider Name and Address Organization Details Recorded Time 07/19/2022 text/html Foot/Ankle UCReported bypatient.Locatio n:left Probleminjury; swelling Severity:moderate Duration:2 days Associated Symptoms:swelling ;ecchymosis Aggravating factors:standing; walking Alleviating factors:analgesic s Gonzalo Jacobsen MD [facility] [place], [address], PA - [facility] 07/19/2022 15:22:05 OBGyn Episode No OBEpisode recorded.
== END ==
PROVIDERS: Visit Provider Nurse Practitioner Family
DX: G43.709 Chronic migraine without aura, not intractable, without status migrainosus (principal); R06.83 Snoring; G47.9 Sleep disorder, unspecified; R20.0 Anesthesia of skin; R20.2 Paresthesia of skin
CPT/HCPCS: 99214

== ENCOUNTER 2024-05-01 14:05 | Outpatient (AMB) | payer BC, SELFPAY ==
--- NOTE | 2024-05-01 14:09 | A.OFFVIS_ITS ---
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 Mirena uses, no menses, inserted 10/2018. Currently is sexually active. She denies vaginal itching and irritation. STI screening offered; she accepts, declines bloodwork. She tries to eat healthy, no regular exercise. Denies family history of breast, ovarian or colon cancer. Last pap smear 2022, negative. [facility] Medical History (Updated 05/01/24 @ 14:30 by Mackenzie Alex CNM) IUD (intrauterine device) in place Migraines Surgical History Hx of section Family History Sister Ovarian cancer Endometriosis Substance use disorder Mother Endometriosis Mental health disorder Substance use disorder Maternal Grandmother Substance use disorder Brother Substance use disorder Social History Housing: House Alcohol intake: current Alcohol intake frequency: holidays/special occasions only Patient Tobacco Use Status: Never used Tobacco e-Cigarette/Vaping Use: Never Used service: No Current occupational status: employed Current occupation: [employer] Current occupational exposures/hazards: No Sexual orientation: Straight/Heterosexual Gender identity: Female Cognitive needs: No Hearing needs: No Vision needs: No Female Reproductive History Menstrual Age of Menarche: 9 control method: progestin IUCD (Mirena 10/2018) Total pregnancies: 3 Full term: 3 Number of Living Children: 3 Date of last pap smear: 04/20/22 (neg pap and hpv) Review of Systems Const All systems reviewed & are unremarkable except as noted in HPI and below Reports as per HPI Eyes Reports no additional complaints ENT Reports no additional complaints Card Reports no additional complaints Resp Reports no additional complaints GI Reports as per HPI and Reports no additional complaints Reports as per HPI Musc Reports no additional complaints Skin/Breast Reports as per HPI Neuro Reports no additional complaints Psych Reports no additional complaints Endo Reports no additional complaints Cristhian/Lymph Reports no additional complaints Aller/Immun Reports no additional complaints Physical Exam Vital Signs: BMI result Body Mass Index 35.8 Const General: cooperative, healthy appearing, no acute distress, well developed and alert Orientation/consciousness: patient oriented x3 HEENT Head: Yes normal to inspection Eyes General: appearance normal, both eyes and all related structures Neck Neck: Yes normal visual inspection Thyroid: Thyroid normal Chest Chest palpation & inspection: normal inspection of the chest and other (no puckering, dimpling, peau de orange, retraction, discharge, masses) Breast/axilla inspection: normal inspection of the breasts Breast/axilla palpation: normal palpation of the breasts Resp Effort & Inspection: normal respiratory effort GI Inspection: Yes normal to inspection Palpation (GI): Soft to palpation Rectal Exam - Female: deferred General: Yes bladder normal to palpation External Female Exam: normal external appearance and normal appearance of the urethra Speculum Exam - Vagina: normal appearance of the vagina, normal palpation and normal vaginal discharge Speculum Exam - Cervix: normal appearance of the cervix, normal palpation and Other cervical findings present (IUD strings at the os) Bimanual exam- vagina & uterus: normal bimanual exam, normal palpation, uterine size normal, bladder normal to palpation, normal palpation and non-tender Bimanual Exam- Adnexa, other: no masses Skin General skin exam: no rashes or lesions noted Rashes: no rashes Neuro General: patient oriented x3 Cognition (Neuro): normal cognition Extrem General: Yes normal to inspection Psych Attitude: cooperative Thought process: Normal thought process present Assessment & Plan Assessment & Plan (1) Encounter for well woman exam with routine gynecological exam: Code(s): Z01.419 - Encounter for gynecological examination (general) (routine) without abnormal findings Category: Medical Plan Discussed: Current recommendations for pap smears per ASCCP guidelines. Breast awareness and periodic breast exams. Maintain a healthy lifestyle including a well balanced diet and routine exercise. Use condoms for STI and prevention. Patient verbalizes understanding and agrees to the plan of care. She was given opportunity to ask questions and all questions were answered to the best of my ability. RTO in one year for annual engineering inspector examination. This note is constructed using voice recognition software. While every effort has been made to ensure accuracy, certified anesthesiologist assistant errors may have been included. Orders: Orders Bacterial Vaginosis Panel Today Z20.2 - Contact with and (suspected) exposure to infections with a predominantly sexual mode of transmission CT NG by PCR Today Z20.2 - Contact with and (suspected) exposure to infections with a predominantly sexual mode of transmission Coding Level of Care Code Est Pt Prev Care 18-39y(10696) Diagnoses Encounter for well woman exam with routine gynecological exam Z01.419
[2024-05-01 14:10] VITALS: BP 106/68; BMI 35.8
== END 2024-05-01 14:38 | disposition home or self-care (01) ==
PROVIDERS: PCP Internal Medicine; Visit Provider Advanced Practice Midwife
DX: Z01.419 Encounter for gynecological examination (general) (routine) without abnormal findings (principal)
CPT/HCPCS: 99395; 99459

== ENCOUNTER 2024-05-01 14:29 | Outpatient (REF) | payer BC, SELFPAY | END 2024-05-01 14:30 | disposition home or self-care (01) | LOC: HO.LNP 14:29 | PROVIDERS: Visit Provider Advanced Practice Midwife | DX: Z13.89 Encounter for screening for other disorder (principal) ==

== ENCOUNTER 2024-09-18 07:57 | Outpatient (REF) | payer BC, SELFPAY ==
--- NOTE | ~2024-09-18 | XR_ITS ---
EXAMINATION: XR CERVICAL SPINE CLINICAL INFORMATION: M54.2 - Cervicalgia COMPARISON: None available. TECHNIQUE: AP oblique and lateral views. Lateral views during flexion and extension position. FINDINGS: Craniocervical junction is intact. No acute cortical disruption or gross malalignment. Mild neuroforamina narrowing on the right C3-4 C4-5 C5-6 levels. No gross malalignment during flexion and/or extension position. No lytic or blastic lesions. Upper airway is patent. XR/XR cervical spine w flex/ext IMPRESSION: No acute fracture or listhesis or gross instability. Probable multilevel mild right neuroforamina narrowing on a degenerative basis, C3-4 to C5-6. Electronically signed by: Keith Tony MD 09/18/2024 09:00 AM EDT
--- NOTE | ~2024-09-18 | XR_ITS ---
EXAMINATION: XR THORACIC SPINE CLINICAL INFORMATION: M41.80 - Other forms of scoliosis, site unspecified COMPARISON: None available. TECHNIQUE: AP and lateral views FINDINGS: S-shaped curvature of the thoracolumbar spine. No acute cortical disruption or malalignment. Rudimentary ribs at T12. No lytic or thick lesions. XR/XR thoracic spine 2V IMPRESSION: Scoliosis, thoracolumbar spine. Electronically signed by: Keith Tony MD 09/18/2024 09:01 AM EDT
--- OUTSIDE RECORDS SUMMARY | 2024-09-18 08:00 | XMS_ITS | Data Portability ---
Author Organization LIZZY Wallace s [id number] Address [address] [place] [address] Assessment No assessment recorded. Plan of Treatment Reminders Order Date Submit Date Provider Last Modified By Organization Details Last Modified Time Details Appointments None record ed. Lab None record ed. Referral None record ed. Procedures None record ed. Surgeries None record ed. Imaging XR, foot, 3 or more view 07/20/19 [facility], [address] [place], [place], [address], 14:45:36 Medication Orders None record ed. Patient TargetsNo targets recorded. Patient Instructions Encounter Date Encounter Id Patient Instructions Last Modified By Organization Details Last Modified Time 07/19/2022 [id number] contusion: care instructions [email or web address] Not available 07/19/2022 14:10:30 learning about rice (rest, ice, compression, and elevation) Not available 07/19/2022 14:10:30 learning about rice (rest, ice, compression, and elevation) Not available 07/19/2022 13:56:47 Reason for Referral None Reported. Results Created Date Observation Date Name Description Value Unit Range Abnormal Flag Note LastModifiedBy Organization Detail LastModifiedTime 07/20/1907/19/2022 XR, foot, 3 or more view No observ ation record ed. [email or web address] [facility] [address] [place], [place], [address], 07/19/2022 15:08:34 Result Notes None recorded. Problems No Known Problems Procedures Surgical History Date Name Laterality Status Provider Name and Address Organization Details Recorded Time delivery completed Cathryn Evans PA - [facility] 07/19/2022 13:46:32 Imaging Results None recorded. Procedure Notes None recorded. Medical Equipment None Reported. Allergies Allergen ID Allergen Name Allergen Category Reaction Reaction Severity Criticality Documentation Date Start Date Code Code System Note Provider Name and Address Organization Details Recorded Time 575070 lidocaine medicatio n hives Not available Not [...] completed Not Available Not Available Not Available [facility] spacer USE DIRECTED active Not Available Not Available No t Available Vitals Date Recorded Body height Body mass index (BMI) Body weight Respiratory rate Oxygen saturation Oxygen saturation in Arterial blood by Pulse oximetry Heart rate Body temperature Systolic And Diastolic Provider Name and Address Organization Details Last Updated DateTime 3 160.02 cm 29.6 kg/m2 41005.9 3 g 20 /min 99 % 99 % 90 /min 98 [degF] 106/69 mm[Hg] Cathryn Donaldsonbe PA - [facility] 13:48:01 Social History Question Answer Notes LastModified by Organizat ion Details LastModified Time Tobacco Smoking Status Never Smoker Cathryn monsalve PA - [facility] 07/19/2022 13:46:21 Have You Had Direct Contact, Or Contact During Intimacy, With Monkeypox Rash, Scabs, Or Body Fluids From A Person With Monkeypox? No Information not available 07/19/2022 Have You Recently Traveled Abroad? No Information not available 07/19/2022 Sex: Unknown Functional Status Question Answer Note LastModified by Organizat ion Details LastModified Time Do you use any illicit or recreational drugs? No Information not available 07/19/2022 Do you or have you ever used any other forms of tobacco or nicotine? No Information not available 07/19/2022 What is your level of alcohol consumption? None Information not available 07/19/2022 Mental Status None recorded. Family History Relationship [...] Influenza, MDCK, quadrivalent, PF 2 completed Cathryn Hanover null, PA - [facility] 07/19/2022 13:45:40 COVID-19, mRNA, LNP-S, PF, 30 mcg/0.3 mL dose 1 completed Cathryn Hanover null, PA - [facility] 07/19/2022 13:45:40 COVID-19, mRNA, LNP-S, PF, 30 mcg/0.3 mL dose 1 completed Cathryn Nathan null, PA - [facility] 07/19/2022 13:45:40 COVID-19, mRNA, LNP-S, PF, 30 mcg/0.3 mL dose, myesha-sucrose 2 completed Cathryn Nathan null, PA - [facility] 07/19/2022 13:45:40 pneumococcal polysaccharide PPV23 9 completed Cathryn Nathan null, PA - [facility] 07/19/2022 13:45:40 Tdap 4 completed Cathryn Nathan null, PA - [facility] 07/19/2022 13:45:40 Influenza, split virus, trivalent, preservative 6 completed Cathryn Hanover null, PA - [facility] 07/19/2022 13:45:40 HPV, quadrivalent 4 completed Cathryn Hanover null, PA - [facility] 07/19/2022 13:45:40 DTaP 8 completed Cathryn Nathan null, PA - [facility] 07/19/2022 13:45:40 Influenza, split virus, quadrivalent, PF 8 completed Cathryn Nathan null, PA - [facility] 07/19/2022 13:45:40 Past Encounters Encounter ID Performer Location Encounter Start Date Encounter Closed Date Diagnosis/Indication Diagnosis SNOMED-CT Code Diagnosis ICD10 Code Diagnosis Note [id number] [address] [place] [address] 03/27/2017 17:32:53 03/27/2017 18:04:58 [id number] [address] [place] [address] 11/27/2021 09:55:39 11/27/2021 12:03:32 [id number] [address] [place] [address] 05/24/2017 11:51:49 05/24/2017 12:26:29 [id number] [address] [place] [address] 02/09/2015 20:00:12 02/09/2015 20:13:06 [id number] [address] [place] [address] 10/05/2017 08:59:01 10/05/2017 09:40:39 [id number] [address] [place] [address] 03/11/2021 11:43:55 03/11/2021 13:15:07 [id number] [address] [place] [address] 03/11/2021 09:06:50 03/11/2021 11:43:01 [id number] [address] [place] [address] 11/19/2014 14:23:46 11/19/2014 15:21:05 [id number] Gonzalo Jacobsen MD [address] [place] [address] 07/19/2022 13:37:29 07/19/2022 14:22:16 Pain in left foot [id number] 01207 M79.672 Your x-ray will be reviewed by a radiologis t. You will be notified of any discrepanc ies between findings discussed at your visit today and the radiology interpreta tion. Contusion of left foot [id number] S90.32XA No fracture on xray and the cut is healing well. No signs of infection. Health Concerns Section Related Observation LastModified by Organization Detai ls LastModified Time None Recorded Concern Status LastModified by Organization Details LastModified Time None Recorded Advance Directives Directive None Recorded Payers Insurance Date Sequence Insurance Name Policy Number Policy Hurley Covered Member ID Hurley Member ID Guarantor Name 07/19/2022 1 [place] [employer] 112 Angelica Caraballo [id number] Angelica Caraballo Notes Date Note Type Note Provider Name and Address Organization Details Recorded Time 07/19/2022 text/html Foot/Ankle UCReported bypatient.Locatio n:left Probleminjury; swelling Severity:moderate Duration:2 days Associated Symptoms:swelling ;ecchymosis Aggravating factors:standing; walking Alleviating factors:analgesic s Gonzalo Jacobsen MD [address] [place], [address], PA - [facility] 07/19/2022 15:22:05 OBGyn Episode No OBEpisode recorded.
[2024-09-18 10:48] LABS: Alanine Aminotransferase 23 U/L (0-31); Anion Gap 11 (12-20); Aspartate Amino Transferase 22 U/L (5-31); Blood Urea Nitrogen 10 mg/dL (9-16); Calcium 8.9 mg/dL (8.4-10.2); Carbon Dioxide 27 mmol/L (22-29); Chloride 108 mmol/L (96-108); Cholesterol 155 mg/dL (<200); Estimated Glomerular Filt Rate > 60; HDL Cholesterol 45 mg/dL (>40); Potassium 3.7 mmol/L (3.3-5.1); Sodium 142 mmol/L (135-145); Triglycerides 111 mg/dL (<150)
== END 2024-09-18 07:58 | disposition home or self-care (01) ==
LOC: HO.HMGCX 07:57
PROVIDERS: PCP Internal Medicine; Referring Provider Nurse Practitioner Family; Visit Provider Internal Medicine
DX: Z13.220 Encounter for screening for lipoid disorders (principal); Z13.1 Encounter for screening for diabetes mellitus; E55.9 Vitamin D deficiency, unspecified; M54.2 Cervicalgia; M41.80 Other forms of scoliosis, site unspecified; G43.709 Chronic migraine without aura, not intractable, without status migrainosus; R20.0 Anesthesia of skin; R20.2 Paresthesia of skin
CPT/HCPCS: 36415; 72052; 72070; 80048; 80061; 82306; 84450; 84460

== ENCOUNTER → 2024-09-18 08:34 | Outpatient (BNV) | payer BC, SELFPAY | PROVIDERS: PCP Internal Medicine; Referring Provider Nurse Practitioner Family; Visit Provider Radiology Diagnostic Radiology | DX: M54.2 Cervicalgia (principal); M41.35 Thoracogenic scoliosis, thoracolumbar region | CPT/HCPCS: 72052; 72070 ==

== ENCOUNTER 2024-09-19 09:37 | Outpatient (AMB) | payer BC, SELFPAY ==
--- OUTSIDE RECORDS SUMMARY | 2024-09-19 10:10 | XMS_ITS | Data Portability ---
Author Organization LIZZY Wallace [facility] [address] Address [address] [place] [address] Assessment No assessment recorded. Plan of Treatment Reminders Order Date Submit Date Provider Last Modified By Organization Details Last Modified Time Details Appointments None record ed. Lab None record ed. Referral None record ed. Procedures None record ed. Surgeries None record ed. Imaging XR, foot, 3 or more view 07/20/19 JESS[facility], [address] [place], [place], [address], 14:45:36 Medication Orders None record ed. Patient TargetsNo targets recorded. Patient Instructions Encounter Date Encounter Id Patient Instructions Last Modified By Organization Details Last Modified Time 07/19/2022 [id number] contusion: care instructions [email or web address] Not available 07/19/2022 [...] [facility] [address] [place], [place], [address], 07/19/2022 15:08:34 Result Notes None recorded. Problems [...] Name and Address Organization Details Recorded Time 543113 lidocaine medicatio n hives Not available Not [...] completed Not Available Not Available Not Available [facility] Moffett [facility] spacer USE DIRECTED active Not Available Not Available No t Available Vitals Date Recorded Body height Body mass index (BMI) Body weight Respiratory rate Oxygen saturation Oxygen saturation in Arterial blood by Pulse oximetry Heart rate Body temperature Systolic And Diastolic Provider Name and Address Organization Details Last Updated DateTime 3 160.02 cm 29.6 kg/m2 87249.9 3 g 20 /min 99 % 99 [...] Influenza, MDCK, quadrivalent, PF 2 completed Cathryn [place] null, PA - [facility] 07/19/2022 13:45:40 COVID-19, mRNA, LNP-S, PF, 30 mcg/0.3 mL dose 1 completed Cathryn [place] null, PA - [facility] 07/19/2022 13:45:40 [...] split virus, trivalent, preservative 6 completed Cathryn [place] null, PA - [facility] 07/19/2022 13:45:40 HPV, quadrivalent 4 completed Cathryn [place] null, PA - [facility] 07/19/2022 13:45:40 DTaP 8 completed Cathryn Nathan null, PA - [facility] 07/19/2022 13:45:40 Influenza, split virus, quadrivalent, PF 8 completed Cathryn Nathan null, PA - [facility] 07/19/2022 13:45:40 Past Encounters Encounter ID Performer Location Encounter Start Date Encounter Closed Date Diagnosis/Indication Diagnosis SNOMED-CT Code Diagnosis ICD10 Code Diagnosis Note [id number] [address] [place] [address] 03/27/2017 17:32:53 03/27/2017 18:04:58 [id number] [address] [place] [address] 11/27/2021 09:55:39 11/27/2021 12:03:32 [id number] [address] [place] [address] 05/24/2017 11:51:49 05/24/2017 12:26:29 [id number] [address] [place] [address] 02/09/2015 20:00:12 02/09/2015 20:13:06 [id number] [address] [place] [address] 10/05/2017 08:59:01 10/05/2017 09:40:39 [id number] [address] [place] [address] 03/11/2021 11:43:55 03/11/2021 13:15:07 [id number] [address] [place] [address] 03/11/2021 09:06:50 03/11/2021 11:43:01 [id number] [address] [place] [address] 11/19/2014 14:23:46 11/19/2014 15:21:05 [id number] Gonzalo Jacobsen MD [address] [place] [address] 07/19/2022 13:37:29 07/19/2022 14:22:16 Pain in left foot [id number] 83263 M79.672 Your x-ray will be reviewed by a radiologis t. You will be notified of any discrepanc ies between findings discussed at your visit today and the radiology interpreta tion. Contusion of left foot [id number] S90.32XA No fracture on xray and the [...] [place] [employer] [place] 112 Angelica Caraballo [id number] Angelica Caraballo Notes Date Note Type Note Provider Name and Address Organization Details Recorded Time 07/19/2022 text/html Foot/Ankle UCReported bypatient.Locatio n:left Probleminjury; swelling Severity:moderate Duration:2 days Associated Symptoms:swelling ;ecchymosis Aggravating factors:standing; walking Alleviating factors:analgesic s Gonzalo Jacobsen MD [address] [place], [address], [place] - [facility] 07/19/2022 15:22:05 OBGyn Episode No OBEpisode recorded.
--- NOTE | 2024-09-19 10:17 | MHC.PC.OV ---
Vital Signs 09/19/24 10:18 Height 5 ft 3 in Weight 204 lb BMI 36.1 BP 100/80 Blood Pressure Location Lt brachial Position Sitting Respiration 15 Pulse 78 Pulse Source Pulse Oximeter Temp 98.1 F Temp Source Oral Pulse Oximetry (%) 99 Oxygen Delivery Method Room Air Intake Visit Reasons: PE Intake Note: Pt is here today for her PE Is last menstrual period known: Yes Last menstrual period: 09/05/24 Allergies lidocaine (From LIDODERM) Allergy (Unknown, Verified 09/19/24 11:05) HIVES lidocaine gel Allergy (Unknown, Uncoded 09/19/24 11:05) hives Medication List - Last Reconciled 09/19/24 by Roxann Payton MD azelastine 2 sprays intranasal BID PRN cholecalciferol (vitamin D3) 50 mcg PO DAILY escitalopram oxalate (Lexapro) 10 mg PO DAILY levonorgestrel (Mirena) intrauterine magnesium oxide 400 mg PO BEDTIME 90 days naproxen 500 mg PO BID PRN ondansetron 4 mg PO Q4H PRN 30 days riboflavin (vitamin B2) 400 mg PO DAILY 30 days rizatriptan 5 - 10 mg (0.5 - 1 x 10 mg) PO Q2H PRN 30 days sennosides (senna) 8.6 mg PO DAILY PRN topiramate 100 mg PO BEDTIME 30 days Tobacco use date assessed: 09/19/24 Dental Screening Dental Screen Date: 09/19/24 Did you have a dental visit in the last 12 months?: Yes Did you have a dental problem in the last 6 months where you did not have access to dental care?: Yes Was dental information given to patient?: Patient has dentist HPI PE HPI Details Old lady with history of migraine headache, currently stable controlled on topiramate, and riboflavin, takes rizatriptan as needed for migraine headaches, followed by Neurology; sees a psychiatric nurse practitioner will treat her for her general anxiety disorder, doing well on escitalopram, here today for her physical exam. She has been feeling well, sees [facility] for her routine Pap and pelvic exam, with last Pap done in 2022 showing normal results. Complains of recurrent itchy rash on extremities, would like a refill on her steroid cream. [facility] Medical History (Updated 09/20/24 @ 08:42 by Roxann Payton MD) Obesity (BMI 30-39.9) Dermatitis IUD (intrauterine device) in place Migraines Surgical History Hx of section Family History Sister Ovarian cancer Endometriosis Substance use disorder Mother Endometriosis Mental health disorder Substance use disorder Maternal Grandmother Substance use disorder Brother Substance use disorder Social History Housing: House Alcohol intake: current Alcohol intake frequency: holidays/special occasions only Patient Tobacco Use Status: Never used Tobacco e-Cigarette/Vaping Use: Never Used service: No Current occupational status: employed Current occupation: [employer] Current occupational exposures/hazards: No Sexual orientation: Straight/Heterosexual Gender identity: Female Cognitive needs: No Hearing needs: No Vision needs: No Female Reproductive History Menstrual Age of Menarche: 9 Date of last menstrual period: 09/05/24 Questionnaire PHQ-9 Over the last 2 weeks, how often have you been bothered by any of the following problems? 1. Little interest or pleasure in doing things: not at all 2. Feeling down, depressed, or hopeless: not at all 3. Trouble falling or staying asleep, or sleeping too much: several days 4. Feeling tired or having little energy: more than half the days 5. Poor appetite or overeating: not at all 6. Feeling bad about yourself - or that you are a failure or have let yourself or your family down: not at all 7. Trouble concentrating on things, such as reading the newspaper or watching television: not at all 8. Moving or speaking so slowly that other people could have noticed. Or the opposite - being so fidgety or restless that you have been moving around a lot more than usual: not at all 9. Thoughts that you would be better off or of hurting yourself in some way: not at all Total score: 3 Depression Screening Interpretation: Negative Depression Screening Done: Yes 44935 - PHQ-9 Billing: Yes Source: Developed by Drs. Daneil Elizabeth, Debbie Pettit, Nitish Dee and colleagues, with an educational stephanie from [employer]. Thrive Questionnaire Date Thrive assessed: 09/19/24 I am a: Patient What is your living situation today?: I have a steady place to live Within the past 12 months, did the food you bought not last and you didn't have the money to get more?: Never true Within the past 12 months, did you worry whether your food would run out before you got money to buy more?: Never true Do you have trouble paying for medicines?: No Do you have trouble getting transportation to medical appointments?: No Do you have trouble paying your heating and electricity bill?: No Do you have trouble taking care of your child, family member or friend?: No Do you have trouble with day-to-day activities such as bathing, preparing meals, shopping, managing finances, etc.?: No Are you currently unemployed and looking for a job?: No Are you interested in more education?: No Please select the resources that you would like help with: None Currently or been in a relationship where the following occur: I choose not to answer THRIVE Score: 0 AUDIT C Alcohol Use Questionnaire (AUDIT-C) 1. How often do you have a drink containing alcohol?: 2-4 times a month 2. How many drinks containing alcohol do you have on a typical day when you are drinking?: 1 or 2 3. How often do you have six or more drinks on one occasion?: Never Total Score: 2 Score Reviewed/Action Taken: Yes GEETA-7 AMB Questionnaire GEETA-7 Date GEETA - 7 assessed: 09/19/24 Feeling nervous, anxious, or on edge: 1 = Several days Not being able to stop or control worryin = Several days Worrying too much about different things: 1 = Several days Trouble relaxin = Not at all Being so restless that it is hard to sit still: 0 = Not at all Becoming easily annoyed or irritable: 0 = Not at all Feeling afraid as if something awful might happen: 0 = Not at all Total GEETA-7 score (0-4 normal; 5-9 mild; 10-14 moderate; 15-21 severe): 3 Source: Developed by Drs. Daniel Elizabeth, Nitish Richter and colleagues, with an educational stephanie from [employer]. GEETA-7 Assessment Billing GEETA-7 Assessment Tool: GEETA-7 Assessment 00795 Review of Systems Const Reports no additional complaints Eyes Details: [facility] Reports requires corrective lenses ENT Details: Dental prophylaxis Q 6 months [facility] dental Card Denies chest pain at rest, Denies chest pain with activity, Denies irregular heart rhythm, Denies lightheadedness and Denies dyspnea Resp Denies cough and Denies dyspnea GI Reports no additional complaints Reports no additional complaints Musc Reports no additional complaints Skin/Breast Reports as per HPI, Denies breast pain and Denies breast mass Neuro Reports no additional complaints Psych Reports no additional complaints Endo Reports no additional complaints Cristhian/Lymph Reports no additional complaints Aller/Immun Reports no additional complaints Physical exam (Primary Care) Vital Signs: Last Vital Signs Temp 98.1 F 09/19/24 10:18 Pulse 78 09/19/24 10:18 Resp 15 09/19/24 10:18 BP 100/80 09/19/24 10:18 Pulse Ox 99 09/19/24 10:18 Oxygen Delivery Method Room Air 09/19/24 10:18 BMI result Body Mass Index 36.1 Tobacco/Smoking Status: Tobacco use Status Tobacco use date assessed 09/19/24 09/19/24 10:19 Patient Tobacco Use Status Never used Tobacco 09/19/24 10:19 e-Cigarette/Vaping Use Never Used 09/19/24 10:19 PHQ-9: PHQ-9 Score PHQ-9: Total score 3 09/20/24 08:35 Depression Screening Interpretation: Negative Thrive Assessment: Date of Thrive Assessment Date Thrive assessed 09/19/24 09/19/24 10:19 Currently or been in a relationship where the following occur: I choose not to answer Const General: no acute distress and alert Nutritional Appearance: obese Orientation/consciousness: patient oriented x3 HENMT Ears: external ears normal, TM's normal bilaterally and EAC's normal General nose exam: Normal external nose present and No nasal discharge present Mouth: Normal oral and palatal mucosa present, oropharynx normal and moist mucous membranes Eyes General: appearance normal, both eyes and all related structures Neck Neck: Yes full ROM, Yes no lymphadenopathy and Yes supple Chest Breast/axilla palpation: normal palpation of the breasts Resp Effort & Inspection: normal respiratory effort and able to speak in complete sentences Auscultation: clear to auscultation bilaterally Cardio Rate: regular rate Rhythm: regular rhythm Heart sounds: S1 normal heart sound present and S2 normal heart sound present GI Palpation (GI): Soft to palpation, nontender and no masses Auscultation: normal bowel sounds Other: Deferred sees [facility] General: Yes no CVA tenderness Back/Spine/Pelvis Back: no CVA tenderness and No back tenderness Skin Other: Slight erythematous patch on fingers Neuro General: patient oriented x3, gait normal, tone normal, moves all extremities, Normal light touch and pain sensation and no focal motor deficits Cranial nerves: Yes CN's II-XII intact bilaterally Cognition (Neuro): normal cognition Extrem General: Yes full ROM, Yes no joint enlargement, Yes no clubbing, cyanosis or edema and Yes normal gait Psych Appearance: grossly normal and well kempt Mental Status: mental status grossly normal Speech and movement: Normal speech and movement present Affect: normal affect Results Reviewed Results Reviewed: Name: Angelica Caraballo Age/Sex: 34/F : 1990 Unit#: [id number] Attend Dr: Roxann Payton MD Re09/18/24 Status: DEP REF Location: [facility] Disch: SPEC : [id number] ДМИТРИЙ: 09/18/24 STATUS: COMP REQ : [id number] RECD: 09/18/24-[address]: Roxann Payton MD COMP: 09/18/24 ENTERED: 09/18/[address]: ORDERED: Met Prof Fast, AST, ALT, Lipid Panel, Vitamin D 25-OH Test Result Flag Reference Sodium 142 135-145 mmol/L Potassium 3.7 3.3-5.1 mmol/L CL 108 96-108 mmol/L CO2 27 22-29 mmol/L Gap 11 L 12-20 BUN 10 9-16 mg/dL Creat 0.73 0.5-1.4 mg/dL eGFR > 60 Chronic Kidney Disease: Estimated GFR < 60 mL/min/1.73m2 Severe Kidney Disease: Estimated GFR < 15 mL/min/1.73m2 FBS 94 60-99 mg/dL CA 8.9 # 8.4-10.2 mg/dL AST (GOT) 22 5-31 U/L ALT (GPT) 23 0-31 U/L Triglyceride 111 <150 mg/dL Desirable Triglyceride: less than 150 mg/dL Borderline High Triglyceride 150-199 mg/dL High Triglyceride: 200-499 mg/dL Very High Triglyceride: greater than or equal to 5OO mg/dL Cholesterol 155 <200 mg/dL Desirable Cholesterol: less than 200 mg/dL Borderline High Cholesterol: 200-239 mg/dL High Cholesterol: greater than 239 mg/dL LDL Calculated 88 <100 mg/dL Desirable LDL: less than 100 mg/dL Near Optimal/Above Optimal LDL: 110-129 mg/dL Borderline High LDL: 130-159 mg/dL High LDL: 160-189 mg/dL Very High LDL: greater than or equal to 190 mg/dL HDL 45 >40 mg/dL Desirable HDL: greater than 40 mg/dL Note: This HDL assay may give artificially low results in patients with liver disease. Vitamin D 25-OH 35.8 >30 ng/mL Health Based Reference Values* < 20 ng/mL Deficient 20-30 ng/mL Insufficient > 30 ng/mL Sufficient Coding Level of Care Code Est Pt Prev Care 18-39y(32804) Diagnoses Annual visit for general adult medical examination with abnormal findings Z00.01 Dermatitis L30.9 Chronic migraine without aura without status migrainosus, not intractable G43.709 Intractability: not intractable Status migrainosus presence: without status migrainosus Anxiety F41.9 Obesity (BMI 30-39.9) E66.9 Additional Codes GEETA-7 Assessment Billing - GEETA-7 Assessment Tool: GEETA-7 Assessment 41157 ([id number]) PHQ-9 - 50199 - PHQ-9 Billing: Yes ([id number]) Assessment & Plan Assessment & Plan (1) Annual visit for general adult medical examination with abnormal findings: Code(s): Z00.01 - Encounter for general adult medical examination with abnormal findings Plan: Reviewed recent fasting lab results with patient continue with regulardental visit every 6 months and regular eye exams, at least every 2 years. Take adequate calcium in diet and vitamin-D 3 at 2000 IU per cap once a day, in addition to weight-bearing exercises to help maintain good muscle tone and weight control. Instructed to do self-breast exam, and recommended to get yearly mammogram, starting at age 40. Up-to-date with her cervical cancer screening reminded to get yearly flu shot, up-to-date with Tdap (2) Dermatitis: Code(s): L30.9 - Dermatitis, unspecified Category: Medical Plan: Prescription sent for Topicort cream 0.05%, applied sparingly to affected areas twice a day for no more than 10 days at a time. (3) Chronic migraine without aura: Code(s): G43.709 - Chronic migraine without aura, not intractable, without status migrainosus Category: Medical Qualifiers: Intractability: not intractable Status migrainosus presence: without status migrainosus Qualified Code(s): G43.709 - Chronic migraine without aura, not intractable, without status migrainosus Plan: Followed at [facility] neurology, stable and controlled on topiramate, riboflavin takes rizatriptan as needed (4) Anxiety: Code(s): F41.9 - Anxiety disorder, unspecified Category: Medical Plan: Sees psychiatric nurse practitioner, currently on escitalopram (5) Obesity (BMI 30-39.9): Code(s): E66.9 - Obesity, unspecified Category: Medical Plan: Discussed need to increase activity and weight reduction. Recommended focusing on improving health instead of dieting. Mediterranean diet is a healthy diet that helps, limit food high in fat, sugar, and calories. Eat slowly, pay attention to portion sizes, plan your meals ahead of time, start regular physical activity, at least 150 minutes of moderate intensity exercise, or 90 minutes per week of vigorous exercise. Medications: New Topicort 0.05% (desoximetasone) 1 appl topical BID 60 grams 0RF 10 days NS L30.9 - Dermatitis, unspecified
[2024-09-19 10:18] VITALS: BP 100/80; PULSE 78; RESP 15; TEMP 36.7; O2SAT 99; BMI 36.1
== END 2024-09-19 11:24 | disposition home or self-care (01) ==
LOC: HO.HMCC 09:38
PROVIDERS: PCP Internal Medicine; Visit Provider Internal Medicine
DX: Z00.01 Encounter for general adult medical examination with abnormal findings (principal); L30.9 Dermatitis, unspecified; E66.9 Obesity, unspecified; Z68.36 Body mass index [BMI] 36.0-36.9, adult; G43.709 Chronic migraine without aura, not intractable, without status migrainosus; F41.9 Anxiety disorder, unspecified

== ENCOUNTER → 2024-09-19 09:37 | Outpatient (BNVA) | payer BC, SELFPAY | PROVIDERS: PCP Internal Medicine; Visit Provider Internal Medicine | DX: Z00.01 Encounter for general adult medical examination with abnormal findings (principal); F41.1 Generalized anxiety disorder; L30.9 Dermatitis, unspecified; G43.909 Migraine, unspecified, not intractable, without status migrainosus; G43.709 Chronic migraine without aura, not intractable, without status migrainosus; E66.9 Obesity, unspecified; Z68.36 Body mass index [BMI] 36.0-36.9, adult | CPT/HCPCS: 96127 ==

== ENCOUNTER → 2024-11-06 10:17 | Outpatient (BNV) | payer BC, SELFPAY | PROVIDERS: PCP Internal Medicine; Visit Provider Psychiatry & Neurology Neurology | DX: G56.21 Lesion of ulnar nerve, right upper limb (principal) | CPT/HCPCS: 95886; 95909 ==

== ENCOUNTER 2024-11-06 10:18 | Outpatient (REF) | payer BC, SELFPAY ==
--- NOTE | 2024-11-06 10:17 | EMG_ITS ---
Right median and ulnar motor and sensory studies were performed right radial sensory study was performed in median and lateral antecubital brachial sensory studies were performed. EMG needle examination was performed. Impression: Mild ulnar neuropathy across elbow with no evidence of median neuropathy MTDD
== END 2024-11-06 10:19 | disposition home or self-care (01) ==
LOC: HO.NEURO 10:18
PROVIDERS: PCP Internal Medicine; Visit Provider Nurse Practitioner Family
DX: M79.601 Pain in right arm (principal)
CPT/HCPCS: 95886; 95910

== ENCOUNTER 2024-12-27 13:41 | Outpatient (AMB) | payer BC, SELFPAY ==
--- NOTE | 2024-12-27 13:53 | MHC.OFFVIS ---
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 The patient states that for the last 2 years her right arm ?goes completely numb?. She has failed the last 6 weeks of conservative treatment which has included Tylenol, anti-inflammatory medicines and physical therapy exercises. The patient does report a history of scoliosis. At this point the patient's neck pain and right arm numbness or interfering with her activities of daily living and her ability to sleep well through the night. The patient states that the numbness in her right hand involves all of her fingers. Allergies lidocaine (From LIDODERM) Allergy (Unknown, Verified 12/27/24 14:01) HIVES lidocaine gel Allergy (Unknown, Uncoded 12/27/24 14:01) hives Medication List - Last Reconciled 12/27/24 by Danilo Nuñez MD azelastine 2 sprays intranasal BID PRN cholecalciferol (vitamin D3) 50 mcg PO DAILY escitalopram oxalate (Lexapro) 10 mg PO DAILY Fluocinonide-E 0.05 % (fluocinonide-emollient) 1 appl topical BID 10 days NS levonorgestrel (Mirena) intrauterine magnesium oxide 400 mg PO BEDTIME 90 days naproxen 500 mg PO BID PRN ondansetron 4 mg PO Q4H PRN 30 days riboflavin (vitamin B2) 400 mg PO DAILY 30 days rizatriptan 5 - 10 mg (0.5 - 1 x 10 mg) PO Q2H PRN 30 days sennosides (senna) 8.6 mg PO DAILY PRN topiramate 100 mg PO BEDTIME 30 days PFS Medical History (Updated 12/27/24 @ 14:21 by Danilo Nuñez MD) Obesity (BMI 30-39.9) Dermatitis IUD (intrauterine device) in place Migraines Surgical History Hx of section Family History Sister Ovarian cancer Endometriosis Substance use disorder Mother Endometriosis Mental health disorder Substance use disorder Maternal Grandmother Substance use disorder Brother Substance use disorder Social History Housing: House Alcohol intake: current Alcohol intake frequency: holidays/special occasions only Patient Tobacco Use Status: Never used Tobacco e-Cigarette/Vaping Use: Never Used service: No Current occupational status: employed Current occupation: [employer] Current occupational exposures/hazards: No Sexual orientation: Straight/Heterosexual Gender identity: Female Cognitive needs: No Hearing needs: No Vision needs: No Female Reproductive History Menstrual Age of Menarche: 9 Physical Exam Vital Signs: BMI result Body Mass Index 35.1 Neck Other: Cervical spine examination shows pain with range of motion, right-sided paraspinal muscle tenderness, positive Spurling's test, 4/5 strength with testing of her right biceps and wrist extensors when compared to 5/5 strength on her left side Extrem Other: Right shoulder examination shows full range of motion when compared to her left shoulder, 4+ out of 5 strength with supraspinatus testing, positive impingement signs, no instability Results Reviewed Results Reviewed: X-rays of the patient's right shoulder show severe acromioclavicular joint narrowing, a type 2 acromion, no acute bony abnormalities Assessment & Plan Assessment & Plan (1) Neck pain on right side: Code(s): M54.2 - Cervicalgia Category: Medical Plan Ms. Caraballo presents with progressively worsening neck pain which radiates down her right arm as well as associated right arm weakness and numbness possibly due to lumbar stenosis or a disc herniation. Thus, I will send the patient for an MRI of her cervical spine for further evaluation. I will contact her by phone once the MRI results are available. She will call me prior to that time should her symptoms worsen in any way. The patient also has right shoulder pain most likely due to impingement syndrome. We will hold off on a cortisone injection at this time. I spent 20 minutes in reviewing the patient's records and imaging studies, seeing the patient and documenting in the medical record. Orders: Orders MR cervical spine wo con Today M54.2 - Cervicalgia Coding Level of Care Code New Pt Level 3 (92425) Complex EM visit Add On G2211 Diagnoses Neck pain on right side M54.2
[2024-12-27 13:58] VITALS: BMI 35.1
--- OUTSIDE RECORDS SUMMARY | 2024-12-27 17:39 | XMS_ITS | Data Portability ---
Author Organization [facility] [address] Address [address] [place] [address] Assessment No assessment recorded. Plan of Treatment Reminders Order Date Submit Date Provider Last Modified By Organization Details Last Modified Time Details Appointments None record ed. Lab None record ed. Referral None record ed. Procedures None record ed. Surgeries None record ed. Imaging XR, foot, 3 or more view 07/20/19 [facility], [address] [place], [place], [address], 14:45:36 Medication Orders None record ed. Patient TargetsNo targets recorded. Patient Instructions Encounter Date Encounter Id Patient Instructions Last Modified By Organization Details Last Modified Time 07/19/2022 [id number] contusion: care instructions [email or web address] Not available 07/19/2022 [...] [facility] [address] [place], [place], [address], 07/19/2022 15:08:34 Result Notes None recorded. Problems [...] Name and Address Organization Details Recorded Time [id number] lidocaine medicatio n hives Not available Not [...] Available Not Available Not Available Lorena Moffett [facility] spacer USE DIRECTED active Not Available Not [...] Updated DateTime 3 160.02 cm 29.6 kg/m2 31743.9 3 g 20 /min 5 99 % 99 % 90 /min 98 [degF] 106/69 mm[Hg] Cathryn Evans PA - [facility] [...] 13:45:40 pneumococcal polysaccharide PPV23 9 completed Cathryn Whitingham null, PA - [facility] 07/19/2022 13:45:40 Tdap 4 completed Cathryn Whitingham null, PA - [facility] 07/19/2022 13:45:40 Influenza, split virus, trivalent, preservative 6 completed Cathryn Whitingham null, PA - [facility] 07/19/2022 13:45:40 HPV, quadrivalent 4 completed Catrhyn Nathan null, PA - [facility] 07/19/2022 13:45:40 DTaP 8 completed Cathryn Nathan null, PA - [facility] 07/19/2022 13:45:40 Influenza, split virus, quadrivalent, PF 8 completed Cathryn Nathan null, PA - [facility] 07/19/2022 13:45:40 Past Encounters Encounter ID Performer Location Encounter Start Date Encounter Closed Date Diagnosis/Indication Diagnosis SNOMED-CT Code Diagnosis ICD10 Code Diagnosis IMO Codes Diagnosis Note [id number] [address] [place] [address] 03/27/2017 17:32:53 03/27/2017 18:04:58 [id number] [address] [place] [address] 11/27/2021 09:55:39 11/27/2021 12:03:32 [id number] [address] [place] [address] 05/24/2017 11:51:49 05/24/2017 12:26:29 [id number] [address] [place] [address] 02/09/2015 20:00:12 02/09/2015 20:13:06 [id number] [address] [place] [address] 10/05/2017 08:59:01 10/05/2017 09:40:39 [id number] [address] [place] [address] 03/11/2021 11:43:55 03/11/2021 13:15:07 [id number] [address] [place] [address] 03/11/2021 09:06:50 03/11/2021 11:43:01 [id number] [address] [place] [address] 11/19/2014 14:23:46 11/19/2014 15:21:05 [id number] Gonzalo Jacobsen MD [address] [place] [address] 07/19/2022 13:37:29 07/19/2022 14:22:16 Pain in left foot [id number] M79.672 Your x-ray will be reviewed by a radiologis t. You will be notified of any discrepanc ies between findings discussed at your visit today and the radiology interpreta tion. Contusion of left foot [id number] S90.32XA No fracture on xray and the [...] [place] [employer] 112 Angelica Caraballo [id number] Angelica Caraballo Notes Date Note Type Note Provider Name and Address Organization Details Recorded Time 07/19/2022 text/html Foot/Ankle UCReported by PatientHPIFor associated symptoms, patient reportsswellingande cchymosis. For location, patient reportsleft. For problem, patient reportsinjuryandswe lling. For severity, patient reportsmoderate. For duration, patient reports2 days. For aggravating factors, patient reportsstandingandw alking. For alleviating factors, patient reportsanalgesics. Gonzalo Jacobsen MD [address] [facility] [place], [address], PA - [facility] 07/19/2022 15:22:05 OBGyn Episode No OBEpisode recorded.
== END 2024-12-27 14:20 | disposition home or self-care (01) ==
LOC: HO.HOS 13:42
PROVIDERS: PCP Internal Medicine; Visit Provider Orthopaedic Surgery
DX: M54.2 Cervicalgia (principal)
CPT/HCPCS: 99203

== ENCOUNTER → 2025-01-16 19:46 | Outpatient (BNV) | payer BC, SELFPAY | PROVIDERS: PCP Internal Medicine; Visit Provider Radiology Diagnostic Radiology | DX: M54.2 Cervicalgia (principal) | CPT/HCPCS: 72141 ==

== ENCOUNTER 2025-01-16 19:47 | Outpatient (REF) | payer BC, SELFPAY ==
--- NOTE | ~2025-01-16 | MR_ITS ---
EXAMINATION: MR CERVICAL SPINE WITHOUT CONTRAST CLINICAL INFORMATION: Right arm and leg weakness numbness pain . COMPARISON: Cervical spine flexion-extension views 09/18/2024 TECHNIQUE: MRI of the cervical spine was obtained using routine sequences without contrast. FINDINGS: There is maintained cervical lordosis. The vertebral heights, alignment and disc heights are normal. The C2-3 disc level appears unremarkable. There is no evidence of disc bulge, herniation or Schmorl's node at any of the disc levels. The neural foramina are patent at all disc levels. Incidental finding of small disc protrusion at the T3-4 disc level. The cord signal, cord caliber and cervical-medullary junction appears normal. MR/MR cervical spine wo con IMPRESSION: Unremarkable MRI cervical spine:. Electronically signed by: Oskar Jacinto MD 01/17/2025 07:11 AM [place]
--- OUTSIDE RECORDS SUMMARY | 2025-01-16 19:54 | XMS_ITS | Data Portability ---
Author Organization [facility] [address] Address [address] [place] [address] Assessment No assessment recorded. Plan of Treatment Reminders Order Date Submit Date Provider Last Modified By Organization Details Last Modified Time Details Appointments None record ed. Lab None record ed. Referral None record ed. Procedures None record ed. Surgeries None record ed. Imaging XR, foot, 3 or more view 07/20/19 [facility], [address] [place], [place], [address], 14:45:36 Medication Orders None record ed. Patient TargetsNo targets recorded. Patient Instructions Encounter Date Encounter Id Patient Instructions Last Modified By Organization Details Last Modified Time 07/19/2022 [id number] contusion: care instructions [email or web address] Not available 07/19/2022 [...] [facility] [address] [place], [place], [address], 07/19/2022 15:08:34 Result Notes None recorded. Problems [...] Name and Address Organization Details Recorded Time [id number] lidocaine medicatio n hives Not available Not [...] Available Not Available Not Available Lorena Moffett [facility] spacer USE DIRECTED active Not [...] Updated DateTime 3 160.02 cm 29.6 kg/m2 57687.9 3 g 20 /min 5 99 % [...] Influenza, MDCK, quadrivalent, PF 2 completed Cathryn Bloomfield null, [place] - [facility] 07/19/2022 13:45:40 COVID-19, mRNA, LNP-S, PF, 30 mcg/0.3 mL dose 1 completed Cathryn Bloomfield null, PA - [facility] 07/19/2022 13:45:40 COVID-19, mRNA, LNP-S, PF, 30 mcg/0.3 mL dose 1 completed Cathryn Bloomfield null, PA - [facility] 07/19/2022 13:45:40 COVID-19, mRNA, LNP-S, PF, 30 mcg/0.3 mL dose, myesha-sucrose 2 completed Cathryn Nathan null, PA - [facility] 07/19/2022 13:45:40 pneumococcal polysaccharide PPV23 9 completed Cathryn Nathan null, PA - [facility] 07/19/2022 13:45:40 Tdap 4 completed Cathryn Bloomfield null, PA - [facility] 07/19/2022 13:45:40 Influenza, split virus, trivalent, preservative 6 completed Cathryn Bloomfield null, PA - [facility] 07/19/2022 13:45:40 HPV, quadrivalent 4 completed Cathryn Nathan null, PA - [facility] 07/19/2022 13:45:40 DTaP 8 completed Cathryn Bloomfield null, PA - [facility] 07/19/2022 13:45:40 Influenza, split virus, quadrivalent, PF 8 completed Cathryn Nathan null, PA - [facility] 07/19/2022 13:45:40 Past Encounters Encounter ID Performer Location Encounter Start Date Encounter Closed Date Diagnosis/Indication Diagnosis SNOMED-CT Code Diagnosis ICD10 Code Diagnosis IMO Codes Diagnosis Note [id number] [address] [place] [address] 03/27/2017 17:32:53 03/27/2017 18:04:58 [id number] [address] [place] [address] 11/27/2021 09:55:39 11/27/2021 12:03:32 [id number] [address] [place] [address] 05/24/2017 11:51:49 05/24/2017 12:26:29 [id number] [address] [place] [address] 02/09/2015 20:00:12 02/09/2015 20:13:06 [id number] [address] [place] [address] 10/05/2017 08:59:01 10/05/2017 09:40:39 [id number] [address] [place] [address] 03/11/2021 11:43:55 03/11/2021 13:15:07 [id number] [address] [place] [address] 03/11/2021 09:06:50 03/11/2021 11:43:01 [id number] [address] [place] [address] 11/19/2014 14:23:46 11/19/2014 15:21:05 [id number] Gonzalo Jacobsen MD [address] [place] [address] 07/19/2022 13:37:29 07/19/2022 14:22:16 Pain in left foot [id number] 20454 M79.672 Your x-ray will be reviewed by a radiologis t. You will be notified of any discrepanc ies between findings discussed at your visit today and the radiology interpreta tion. Contusion of left foot [id number] S90.32XA No fracture on xray and the [...] [place] [employer] 112 Angelica Caraballo [id number] Angelica Caraballo Notes Date Note Type Note Provider Name and Address Organization Details Recorded Time 07/19/2022 text/html Foot/Ankle UCReported by PatientHPIFor associated symptoms, patient reportsswellingande cchymosis. For location, patient reportsleft. For problem, patient reportsinjuryandswe lling. For severity, patient reportsmoderate. For duration, patient reports2 days. For aggravating factors, patient reportsstandingandw alking. For alleviating factors, patient reportsanalgesics. Gonzalo Jacobsen MD [address] [facility] [place], [address], [place] - [facility] 07/19/2022 15:22:05 OBGyn Episode No OBEpisode recorded.
== END 2025-01-16 19:48 | disposition home or self-care (01) ==
LOC: HO.MRI 19:47
PROVIDERS: PCP Internal Medicine; Visit Provider Orthopaedic Surgery
DX: M54.2 Cervicalgia (principal)
CPT/HCPCS: 72141

== ENCOUNTER 2025-02-18 12:09 | Outpatient (AMB) | payer BC, SELFPAY ==
--- NOTE | 2025-02-18 12:18 | A.OFFVIS_ITS ---
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 Allergies lidocaine (From LIDODERM) Allergy (Unknown, Verified 03/11/25 13:02) HIVES Medication List - Last Reconciled 02/18/25 by Yamilet Hess LPN acetaminophen 1,000 mg PO Q6H PRN cholecalciferol (vitamin D3) 50 mcg PO DAILY ibuprofen 600 mg PO Q8H PRN levonorgestrel (Mirena) intrauterine magnesium oxide 400 mg PO BEDTIME 90 days naproxen 500 mg PO BID PRN rizatriptan 5 - 10 mg (0.5 - 1 x 10 mg) PO Q2H PRN 30 days topiramate 100 mg PO BEDTIME 30 days HPI HPI Cervicalgia: Details: History of Present Illness The patient is a 34-year-old female presenting with right arm pain radiating to her forearm and fingers. The pain reportedly began suddenly about two years ago without any precipitating injury and has been present for several months. She describes the pain as a pulsing, throbbing, and aching sensation. The pain is rated as 6/10 at baseline, can increase to 8/10 daily, and is worse in the morning and at night. 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 Past therapeutic interventions include physical therapy, which provided no relief. She currently manages her pain with naproxen 500 mg one to two times a day and Tylenol 500 mg as needed. Her past surgical history is notable only for a . 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 However, these findings do not fully account for the pain in her shoulder and upper arm region. Pain Description - Onset and Duration: The pain started suddenly about two years ago without any injury. - Location and Radiation: The pain is in the right arm and radiates down to the forearm and fingers. - Quality: The pain is described as a pulsing, throbbing, and aching sensation. - Severity: Pain is rated at a 6/10 baseline and can reach 8/10 daily. - Timing: Symptoms are worse in the morning and at night. - Impact on Function: The pain interferes with sleep and daily activities, though the patient remains independent and continues to work full-time. Physical Exam - Musculoskeletal- Full range of motion of the right arm, which is not particularly painful. Results - EMG: Evidence of reduced amplitude in the right median nerve. - EMG: The right ulnar motor nerve showed decreased conduction velocity, suspicious for mild ulnar neuropathy across the elbow. Pain Management: - Affect: Pain interferes with her sleep. - Analgesia: Current medications include naproxen 500 mg one to two times a day and Tylenol 500 mg as needed. - Analgesia: The baseline pain level is 6/10, with daily exacerbations up to 8/10. 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 [facility] Medical History (Updated 12/27/24 @ 14:21 by Danilo Nuñez MD) Obesity (BMI 30-39.9) Dermatitis IUD (intrauterine device) in place Migraines Surgical History Hx of section Family History Sister Ovarian cancer Endometriosis Substance use disorder Mother Endometriosis Mental health disorder Substance use disorder Maternal Grandmother Substance use disorder Brother Substance use disorder Social History Housing: House Alcohol intake: current Alcohol intake frequency: holidays/special occasions only Patient Tobacco Use Status: Never used Tobacco e-Cigarette/Vaping Use: Never Used service: No Current occupational status: employed Current occupation: [employer] Current occupational exposures/hazards: No Sexual orientation: Straight/Heterosexual Gender identity: Female Cognitive needs: No Hearing needs: No Vision needs: No Female Reproductive History Menstrual Age of Menarche: 9 Physical Exam Vital Signs: Last Vital Signs Pulse 100 02/18/25 12:19 Resp 16 02/18/25 12:19 BP 132/72 02/18/25 12:19 Pulse Ox 98 02/18/25 12:19 Oxygen Delivery Method Room Air 02/18/25 12:19 BMI result Body Mass Index 36.8 Assessment & Plan Assessment & Plan (1) Right arm pain: Code(s): M79.601 - Pain in right arm Category: Medical Plan Plan Patient was informed and verbally consented to the use of an ambient scribe for clinic note documentation during this visit. 1. Chronic Right Arm Pain - The patient's presentation is not consistent with a single diagnosis, with possibilities including cervical radiculopathy and/or suprascapular neuropathy or entrapment. - EMG results indicate a mild ulnar neuropathy at the elbow, which may be a contributing factor but does not explain the full scope of her symptoms, particularly the shoulder and upper arm pain. - The plan is to schedule a diagnostic right suprascapular nerve block as the next step in management. - If she has a positive response to the nerve block, a trial of suprascapular nerve stimulation will be considered for her pain. Discussion Notes I explained to the patient that her symptoms do not point to one specific diagnosis, and there are several possibilities, such as cervical radiculopathy or suprascapular neuropathy. I reviewed her EMG results, which show evidence of mild ulnar neuropathy at the elbow, but noted that this does not fully explain her shoulder and upper arm pain. As the next step, I recommended a diagnostic right suprascapular nerve block to help determine the source of her pain. I also discussed that if she responds well to this block, we can then consider a trial of suprascapular nerve stimulation for long-term pain management. The patient expressed her understanding of the proposed plan and agreed to proceed. Patient Instructions - Continue taking Naproxen 500 mg one to two times a day and Tylenol 500 mg as needed for your pain. - You will be scheduled for a right suprascapular nerve block, which is an injection to help diagnose the cause of your arm pain. - Depending on your response to the nerve block, a trial of suprascapular nerve stimulation may be considered as a future treatment option. Coding Level of Care Code New Pt Level 4 (89137) Diagnoses Right arm pain M79.601
[2025-02-18 12:19] VITALS: BP 132/72; PULSE 100; RESP 16; O2SAT 98; BMI 36.8
== END 2025-02-18 12:59 | disposition home or self-care (01) ==
LOC: HO.PMC 12:10
PROVIDERS: PCP Internal Medicine; Visit Provider Internal Medicine
DX: M79.601 Pain in right arm (principal)
CPT/HCPCS: 99204